=== PATIENT | male | born 1980 | race Caucasian/White ===

== ENCOUNTER 2016-10-14 16:40 | Inpatient (IN) | payer OTHER ==
[~2016-10-14] VITALS: Ht 175.3 cm; Wt 70.3 kg
[~2016-10-14 16:40] MED LIST: ABILIFY30 M1 PO; PROVENTIL HFA6.7 GM INH
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
--- NOTE | 2016-10-14 16:50 | NUR ---
PT TO [facility] FROM [employer] FOR SUISIDAL IDEATION AND NONCOMPLIANCE WITH MEDS PER PTR FATHER. ON ARRIVAL PT REFUSED TO TALK TO THIS RN. REQUESTING .
--- NOTE | 2016-10-14 16:51 | NUR ---
HX OF SCHIZO AFFECTIVE DISORDER.
--- NOTE | 2016-10-14 17:02 | NUR ---
PT WANDED BY SECURITY, CHANGED INTO BLUE SCRABS, 1 BELONGING BAG LOCKED INTO CLOSET, 1 VALUABLE BAG IN ER SAFE.
--- NOTE | 2016-10-14 18:21 | NUR ---
LABS SENT (BLUE,SST,LAV,[place])
[2016-10-14 18:35] LABS: ABSOLUTE BASOPHIL COUNT 0 /CUMM (0.0-0.2); ABSOLUTE EOSINOPHIL COUNT 0.2 /CUMM (0.0-0.7); ABSOLUTE GRANULOCYTE CT 6.5 /CUMM (1.4-6.5); ABSOLUTE LYMPH COUNT 1.8 /CUMM (1.2-3.4); ABSOLUTE MONOCYTE COUNT 0.6 /CUMM (0.10-0.60); BASOPHIL % 0.3 % (0.0-2.0); EOSINOPHIL % 2.5 % (0-5); HEMATOCRIT 42.8 % (42-52); MEAN CORPUSCULAR HGB 28.4 PG (27.0-31.0); MEAN CORPUSCULAR HGB CONC 32.6 G/DL (33.0-37.0); MEAN CORPUSCULAR VOLUME 86.9 FL (80.0-94.0); MEAN PLATELET VOLUME 10.2 FL (7.4-10.4); PLATELET COUNT 218 /CUMM (130-400); RBC DISTRIBUTION WIDTH 13.1 % (11.5-14.5); RED BLOOD CELL CT 4.92 /CUMM (4.70-6.10); WHITE BLOOD CELL COUNT 9.1 /CUMM (4.8-10.8)
--- NOTE | 2016-10-14 19:35 | ED PSYCH CRISIS CONSULTATION ---
See Addendum Crisis Consult Basic Assessment Date of Consult: 10/14/16 ED Provider: Patient's ED Provider: RAKESH GROVES DO Primary Care Physician: Patient's PCP: PATIENT HAS NO PRIMARY CARE DR PCP's Phone Number: Current Psychiatrist: He was seeing Dr. Veliz at [facility]. Chief Complaint: Psychiatric Related Complaint Patient's Quote: "Dr. Sebastian called my mom and I have no idea what he said to her." Present Illness: The patient is a 36 year old single, male presenting to the ED, via ambulance after his father called the police. The patient presents as guarded, confrontational and appears to have some paranoid thinking. The patient is very angry that he is in the ED and does not understand why he needs to be here. He does acknowledge a history of mental health treatment and states that he discontinued treatment with Dr. Veliz ([facility]), "months ago." He states that he was "not happy," however is not able to articulate why he was concerned with his treatment. He reports that his last inpatient admission was "here," and per records he was last at [facility], in February of 2016. He states that he has been medication compliant, despite his parents account that he has not been taking his medications. Per the records, he was last seen on 07/13/2016 and did not follow up within the recommended 6 weeks. DEON asked him where he was receiveing his medications, since he had not been seen and he stated that [facility]" and he "recieved another prescription in the mail." He was evasive when asking about his pharmacy to verify and stated that "he uses a few." He was guarded when disclosing any information and generally answered questions, with more questions. He denies any current symptoms and stated that he "is fine," and that his parents were not truthful in their account, of his recent behavior. He denies any current or history of AH / VH / SI / HI, however per records he does have a history of paranoia, delusions and hallucinations. He states that he is not sure why his parents are lying, however states that they are. He denies any current or history of substance abuse or treatment, however his toxicology screen was positive for Cannabis. DEON spoke to the patients parents Brandin ([phone]), for collateral information. Brian states that he has been very concerned for the patients safety. Brian notes that the patient has not been taking his medications since June, noting he was doing well while on his injectable medication. Brian notes that the patient has been living with them and that they have noticed that the patient is decompensating. Brian notes that the patient has been acting confrontational, saying "crazy things," and scaring people with his presentation. Brian notes that he called the police today(noting it was the 2nd time this week), as he believes that the patient needs a readmission at this point. Brian reports that the patients "girlfriend," has also been very concerned for his safety and hers. 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 Brian reports that patient has a history of "paranoid schizophrenia," noting he has heard voices in the past. Brian finds the patient to be very guarded and paranoid at this time. Brian and Sigrid are very concerned for the patients safety and would like him to be put back on his medications. They note that they would like to be involved in treatment planning if he is admitted. They also note that unless they are involved in family meeting, that he will not be allowed to return to live with them. A message was left for the patients "ex- girlfriend," Shelia ([phone]). Patient's Address: [address] [place] [address] Other Phone Number: Who Do You Live With? Mother (and father) Family/Informants Interviewed: A message was left for his "ex-girlfriend," Shelia ([phone]) SW spoke to his parents Sigrid and Brian ([phone]). Allergies - Coded Allergies: NO KNOWN ALLERGIES (08/11/12) Current Medications - Scheduled Medications Aripiprazole (Abilify) 30 MG TABLET 1 TAB PO DAILY MENTAL HEALTH #30 ( Reported) Entered as Reported by STEPHANE HOLLIDAY on 02/20/16 7340 Scheduled PRN Medications Albuterol Sulfate (Proventil Hfa) 6.7 GM HFA.AER.AD 2 PUF INH PRN ASTHMA #7 ( Reported) Entered as Reported by STEPHANE HOLLIDAY on 02/20/161808 Laboratory Results: Laboratory Tests 10/14/161920: Urine Opiates Screen < 100.00, Methadone Screen < 40, Barbiturate Screen < 60, Ur Phencyclidine Scrn < 6.00, Amphetamines Screen < 100, U Benzodiazepines Scrn < 85, Urine Cocaine Screen < 50, Urine Cannabis Screen 60.50 H 10/14/160: Anion Gap 11, Estimated GFR > 60, BUN/Creatinine Ratio 22.2, Glucose 173 H, Calcium 9.3, Total Bilirubin 0.9, AST 28, ALT 45, Alkaline Phosphatase 60, Total Protein 6.9, Albumin 4.5, Globulin 2.4, Albumin/Globulin Ratio 1.9, CBC w Diff NO MAN DIFF REQ, RBC 4.92, MCV 86.9, MCH 28.4, RDW 13.1, MPV 10.2, Gran % 71.0, Lymphocytes % 19.7 L, Monocytes % 6.5, Eosinophils % 2.5, Basophils % 0.3, Absolute Granulocytes 6.5, Absolute Lymphocytes 1.8, Absolute Monocytes 0.6, Absolute Eosinophils 0.2, Absolute Basophils 0, PUBS MCHC 32.6 L, Serum Alcohol < 10.0 Past History Past Medical History Neurological: NONE EENT: allergies Cardiovascular: NONE Respiratory: NONE Gastrointestinal: NONE Hepatic: NONE Renal: NONE Musculoskeletal: NONE Psychiatric: schizo affective disorder Endocrine: NONE Blood Disorders: NONE Cancer(s): NONE BUFFING WHEEL FORMER AUTOMATIC/Reproductive: NONE Past Surgical History Surgical History: non-contributory Psychosocial History Strengths/Capabilities: The patient does appear to have supportive parents. Physical Limitations (Interventions): None noted Psychiatric Treatment History Psych Treatment Psychiatric Treatment Yes Inpatient Treatment Yes Outpatient Treatment Yes Location of Treatment Tra and the patient was evasive re: other hopsitalizations- noting 15 Reason for Treatment Per records Schizoaffective Disorder Dates of Treatment Last IP February 2016 and has been connected o Tra OPS- last 07/13/16 Response to Treatment The patient states that "he was not happy with treatment," however was not able to articualte why. Diagnosis by History: schizoaffective disorder Substance Use/Abuse History Drug Use/Abuse Substances Used/Abused Yes Substance Used/Abused Marijuana First Use Patient denies use Last Used Patient denies use How much used/taken Patient denies use How often Patient denies use For how long Patient denies use Route of use Patient denies use Substance Abuse Treatment Substance Abuse Treatment Past Substance Abuse TX No Inpatient Treatment No Outpatient Treatment No Location of Treatment N/A Reason for Treatment N/A Dates of Treatment N/A Response to Treatment N/A Comments: The patient denies any current or history of drug or alcohol abuse, however his toxicology screen is positive for Cannabis. Current Mental Status Mental Status Orientation: Person, Place, Situation Affect: Angry, Inappropriate Speech: Evasive (Guarded), Hyper-verbal Neuro-vegetative: The patient denies all symptoms at this time. Appearance Appearance- Dress/Hygiene: The patient appears, neat, clean and well groomed. Behaviors Thought Process: Irrational Thought Content: Paranoid, Per records the patient does have a history of having AH, Delusions and paranoia. Memory: WNL Insight: Poor SI/HI Risk Assessment Past Suicidal Ideation/Attempts No (Pt. denies) Current Suicidal Ideation/Att No (Pt. denies) Past Homicidal Ideation/Att: No (Pt. denies) Current Homicidal Ideation/Attempts No (Pt. denies) Degree of Intent: None, Made Preparations (Pt. denies) Gravely Disabled: Lack of Insight, Poor Impulse Control, Poor Judgment Risk Factors: SA/MH hospitalized, substance abuse, poor impulse control, male Lethality Ratin PTSD Checklist PTSD Done? pt unable to participate ED Management Sitter: Yes Restraints: No DSM5/PS Stressors/Medical Prob Diagnosis' (DSM 5, Stressors, Medical): F25.0 Schizoaffective Disorder Bipolar Type- Per recent discharge from [facility]. F12.10 Cannabis use Disorder Medical: Unremarkable Stressors: family issues and relationship issues. Current GAF: 29 Comments: N/A Departure Disposition Psych Medical Clearance Date: 10/14/16 Medically Cleared at: 1920 Time Started: 1929 Time Ended: 2029 Psychiatrist Consulted: Dr. Montiel Date Disposition Established: 10/14/16 Time Disposition Established: 2029 Plan for Disposition - Modality: Hold over for reassessment in the AM. Contact: N/A Telephone: N/A Rationale for Disposition: The patient presents to the ED, after his father called the police, with concerns for his mental health. The patients parents are concerned for his safety and believe that he requires an inpatient admission. The patient presents as guarded, confrontational and paranoid, however denies all symptoms and stressors. A call was placed to his "ex-girlfiend," for additional collateral information and SW will await a call back. Case discussed with Dr. Montiel who will hold the patient over for reassessment in the AM. Additional Instructions: N/A Referrals PATIENT HAS NO PRIMARY CARE DR (PCP/Family)
--- NOTE | 2016-10-14 22:05 | NUR ---
PT RESTING IN BED, OFFERING NO COMPLAINTS OR NEEDS. FOOT BOX PROVIDED. PT REFUSED VS. SITTER AT DOORWAY.
--- NOTE | 2016-10-14 22:45 | NUR ---
PT USING BEDPAN, UNRESTRAINED TO TURN FOR CLEANING, PT HAD LARGE BM..... PT ASKS WHY HE NEEDS TO BE RESTRAINED, BUT CANNOT CANTRACT THAT HE WILL NOT TRY TO LEAVE, CONTINUES TO ENDORSE FLEEING.
--- NOTE | 2016-10-15 00:45 | NUR ---
INTRODUCED SELF TO PT, NO CO BUT REQUESTS WATER, SITTER IN PLACE. ENCOURAGED TO KEEP DOOR OPEN.
--- NOTE | 2016-10-15 04:50 | NUR ---
PT HAS SLEPT MOST OF SHIFT, AWAKENS EASILY UPON ENTERING ROOM OFFERED FLUIDS, STABLE. SITTER MAINTAINED
--- NOTE | 2016-10-15 05:12 | NUR ---
PT VERY POLITELY DECLINED VS THIS AM, BUT WAS AGREEABLE TO MANUAL PULSE ONLY....
--- NOTE | 2016-10-15 07:25 | NUR ---
PT AWAKE,ALERT. REFUSED VITALS STATES "WHY ITS BEEN DONE LIKE 5 TIMES". DID ALLOW THIS MOVING PICTURE PRODUCER TO TAKE PULSE. ASKED WHY HE IS HERE. RELAYED INFO FROM [facility] BY AMBULANC.
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
--- NOTE | 2016-10-15 10:01 | NUR ---
PT APPEARS TO BE SLEEPING AT THIS TIME WITH EQUAL CHEST RISE AND FALL NOTED. SITTER PRESENT. AWAITING FURTHER DISPO.
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
--- NOTE | 2016-10-15 12:06 | NUR ---
PT STANDING IN [place] TALKING TO SITTERS. REFUSING VITALS AT THIS TIME "5 TIMES A DAY IS RIDICULOUS." PT ASKED TO AUDIT CONSULTANT HIS DOORWAY TO TALK TO SITTERS AND WAS COOPERATIVE AT THIS TIME.
--- NOTE | 2016-10-15 13:36 | NUR ---
PT ALLOWED VITALS AND EKG TO BE DONE BY TECH
--- NOTE | 2016-10-15 16:59 | NUR ---
REPORT TO STAS OLSON
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
--- NOTE | 2016-10-15 17:14 | NUR ---
TRANSPORT BOOKED, SECURITY NOTIFIED OF SAME. PT HAS BELONGINGS BAG X 1 AND VALUABLES BAG X 1 TRANSPORTING WITH HIM.
[2016-10-15 17:51] VITALS: BP 120/73
--- NOTE | 2016-10-15 18:22 | NUR ---
PT ARRIVED TO THE UNIT OVERALL COOPERATIVE HOWEVER DID HAVE AN INTENSE, GUARDED (PARANOID?), CALMLY DEFIANT/CHALLENGING EDGE. PT DENIES DRINKING AND ONLY DRUG USE WAS MJ COOKIES 1-2 WEEKS AGO. WHEN ASKED DIRECTLY DENIES SI/HI/HALLUCINATIONS AND AT THIS TIME NO OVERT S/SX OF +AH. PT VERBALIZED DISCONTENT WITH ADMISSION (IS PEC-ED) AND WILL DISCUSS THIS WITH TREATMENT TEAM ON MONDAY. NO ISSUES OR COMPLAINTS REPORTED OR OBSERVED, REPORTS + MOOD, APPETITE AND SLEEP, DENIES ALLERGIES, REPORTS NOT BEING ON ANY MEDICATIONS FOR A SIGNIFICANT TIME FRAME EXCEPT HIS INHALER FOR PRN SEASONAL ALLERGIES. REPORTS FEELING SAFE AND COMFORTABLE HERE AND WOULD INFORM STAFF IF THAT CHANGED. DR. BROWNING NOTIFIED FOR H&P @ 2783.
--- NOTE | 2016-10-15 20:02 | NUR ---
PT ARRIVED TO [facility] AT 1728. HAS BEEN QUIET AND HAS NOT DISPLAYED ANY EMOTIONAL DISTRESS. HE HAS TALKED WITH STAFF AND BEEN COMPLIANT. PT DENIES ANY THOUGHTS OF SI AT THIS TIME.
--- NOTE | 2016-10-15 20:11 | Admission Certification ---
Admission Certification Certification Statement - As attending physician, I certify that at the time of - admission, based on clinical presentation, severity of - symptoms, need for further diagnostic testing and - therapeutic interventions, and risk of adverse outcomes - without in-hospital treatment, in my clinical assessment, - this patient requires an acute hospital stay for a minimum - of two nights or longer. I have also considered psychsocial - factors such as support system, advanced age, financial - issues, cognitive issues, and failed out-patient treatments, - past re-admission history, safety of patient, and lack of - compliance as applicable. Specific rationale supporting this admission is: Schizoaffective disorder.
--- NOTE | 2016-10-15 20:11 | History & Physical ---
General Information and HPI MD Statement: I have seen and personally examined SEVEN CLEMONS and documented this H&P. The patient is a 36 year old M who presented with a patient stated chief complaint of [suicidal ideation]. Source of Information: patient Exam Limitations: no limitations History of Present Illness: 36 yo M with h/o asthma, allergies, schizoaffective disorder is admitted to Inpatient Psychiatry for suicidal ideation and paranoid delusions secondary to noncompliance with medications. Please refer to Psych H and P for details. He feels well and has no complaints. Allergies/Medications Allergies: Coded Allergies: NO KNOWN ALLERGIES (08/11/12) Home Med list Albuterol Sulfate (Proventil Hfa) 6.7 GM HFA.AER.AD 2 PUF INH PRN ASTHMA ( Reported) Compliance With Home Meds: POOR Past History Travel History Traveled to [place] past 21 day No Medical History Neurological: NONE EENT: allergies Cardiovascular: NONE Respiratory: childhood asthma (diagnosed age 9 yrs) Gastrointestinal: NONE Hepatic: NONE Renal: NONE Musculoskeletal: NONE Psychiatric: schizo affective disorder Endocrine: NONE Blood Disorders: NONE Cancer(s): NONE CIGAR MAKER/Reproductive: NONE Other Medical Hx: Acne History of MRSA: No History of VRE: No History of CDIFF: No Surgical History Surgical History: appendectomy, Closed reduction of right knee dislocation Past Family/Social History Family History Relations & Conditions if any FATHER (HTN, DM.). MOTHER (HTN.). SISTER (HTN.). Maternal grandfather (Lung cancer). Uncle (CAD s/p stent.). Relation not specified for: *No pertinent family history Psychosocial History Where do you live? Home Who Do You Live With? self Services at Home: None Primary Language: Danish Smoking Status: Current Everyday Smoker ETOH Use: occasional use Illicit Drug Use: marijuana Functional Ability ADLs Independent: dressing, eating, toileting, bathing. Ambulation: independent Review of Systems Review of Systems Constitutional: Denies: chills, fever, malaise, weakness. EENTM: Reports: no symptoms. Cardiovascular: Denies: chest pain, orthopena, palpitations, syncope. Respiratory: Denies: cough, short of breath, sputum production. GI: Denies: abdominal pain, diarrhea, nausea, vomiting. Genitourinary: Reports: no symptoms. Musculoskeletal: Reports: neck pain. Denies: back pain, joint pain, joint swelling. Neurological/Psychological: Reports: no symptoms. All Other Systems: Reviewed and Negative Exam & Diagnostic Data Last 24 Hrs of Vital Signs/I&O Vital Signs Date Time Temp Pulse Resp B/P B/P Pulse O2 O2 Flow FiO2 Mean Ox Delivery Rate 10/16 1957 98.4 73 139/75 10/16 1548 105 133/83 10/16 1155 70 133/71 Intake & Output 10/16 1600 10/16 0800 10/16 0000 Intake Total Output Total Balance Patient 155 lb Weight Physical Exam General Appearance Alert, Oriented X3, Cooperative, No Acute Distress Skin No Breakdown, No Significant Lesion HEENT Atraumatic, EOMI, Mucous Membr. moist/pink Neck Supple Cardiovascular Regular Rate, Normal S1, Normal S2 Lungs Clear to Auscultation, Normal Air Movement Abdomen Normal Bowel Sounds, Soft, No Tenderness Neurological Exam Findings: Normal Gait, Normal Speech, Strength at 5/5 X4 Ext, Cranial Nerves 3-12 NL Cranial Nerves II through XII: Grossly intact Extremities No Edema, Normal Pulses, No Tenderness/Swelling Vascular Normal Pulses, Pulses Symmetrical Last 24 Hrs of Labs/Rusty: Laboratory Tests 10/14 1820 Chemistry Sodium (137 - 145 mmol/L) 136 L Potassium (3.5 - 5.1 mmol/L) 4.0 Chloride (98 - 107 mmol/L) 99 Carbon Dioxide (22 - 30 mmol/L) 26 Anion Gap (5 - 16) 11 BUN (9 - 20 mg/dL) 20 Creatinine (0.7 - 1.2 mg/dL) 0.9 Estimated GFR (>60 ml/min) > 60 BUN/Creatinine Ratio (7 - 25 %) 22.2 Glucose (65 - 99 mg/dL) 173 H Calcium (8.4 - 10.2 mg/dL) 9.3 Total Bilirubin (0.2 - 1.3 mg/dL) 0.9 AST (17 - 59 U/L) 28 ALT (21 - 72 U/L) 45 Alkaline Phosphatase (< 127 U/L) 60 Total Protein (6.3 - 8.2 g/dL) 6.9 Albumin (3.5 - 5.0 g/dL) 4.5 Globulin (1.9 - 4.2 gm/dL) 2.4 Albumin/Globulin Ratio (1.1 - 2.2 %) 1.9 Hematology CBC w Diff NO MAN DIFF REQ WBC (4.8 - 10.8 /CUMM) 9.1 RBC (4.70 - 6.10 /CUMM) 4.92 Hgb (14.0 - 18.0 G/DL) 13.9 L Hct (42 - 52 %) 42.8 MCV (80.0 - 94.0 FL) 86.9 MCH (27.0 - 31.0 PG) 28.4 RDW (11.5 - 14.5 %) 13.1 Plt Count (130 - 400 /CUMM) 218 MPV (7.4 - 10.4 FL) 10.2 Gran % (42.2 - 75.2 %) 71.0 Lymphocytes % (20.5 - 51.1 %) 19.7 L Monocytes % (1.7 - 9.3 %) 6.5 Eosinophils % (0 - 5 %) 2.5 Basophils % (0.0 - 2.0 %) 0.3 Absolute Granulocytes (1.4 - 6.5 /CUMM) 6.5 Absolute Lymphocytes (1.2 - 3.4 /CUMM) 1.8 Absolute Monocytes (0.10 - 0.60 /CUMM) 0.6 Absolute Eosinophils (0.0 - 0.7 /CUMM) 0.2 Absolute Basophils (0.0 - 0.2 /CUMM) 0 PUBS MCHC (33.0 - 37.0 G/DL) 32.6 L Toxicology Urine Opiates Screen (>2000 NG/ML) < 100.00 Methadone Screen (>300 NG/ML) < 40 Barbiturate Screen (>200 NG/ML) < 60 Ur Phencyclidine Scrn (>25 NG/ML) < 6.00 Amphetamines Screen (>1000 NG/ML) < 100 U Benzodiazepines Scrn (>200 NG/ML) < 85 Urine Cocaine Screen (>300 NG/ML) < 50 Urine Cannabis Screen (>50 NG/ML) 60.50 H Serum Alcohol (<10 MG/DL) < 10.0 Diagnostic Data EKG Results -- CXR Results -- Assessment/Plan Assessment: 36 yo M admitted for schizoaffective disorder and suicidal ideation. 1. Management per Psych team. 2. Albuterol inhaler as needed for asthma. 3. Smoking cessation counseling, nicotine patch. 4. Patient to resume acne medication and allergy pills when he is discharged back home. DVT prophylaxis - low risk, early ambulation. As Ranked By This Provider Problem List: 1. Schizoaffective disorder 2. Cigarette smoker 3. Agitation Miscellaneous Miscellaneous Documentation Attending Case Discussed With: Jigar Diaz MD Primary Care Physician: PATIENT HAS NO PRIMARY CARE DR Patient sees these Specialists -- Level of Patient Care: PAULINA Aldrich Attending MD Review Statement Attending Statement Attending MD Statement: examined this patient, discuss w/resident/PA/MECHANICAL COMMISSIONING ENGINEER
[2016-10-15 20:14] VITALS: BP 136/71
--- NOTE | 2016-10-15 23:00 | NUR ---
2144 PT. REFUSED PM MEDICATIONS HALDOL, ATIVAN AND COGENTIN REPORTED TO CHARGE NURSE "I TALKED TO DR. GOLD TODAY AND HE SAID IF I FEEL GOOD DONOT NEED THEM" STATED BY PT. DR. GOLD AWARE.
--- NOTE | 2016-10-16 10:43 | ED PSYCH CRISIS CONSULTATION ---
Crisis Consult Basic Assessment Chief Complaint: Psychiatric Related Complaint Present Illness: The patient is a 36 year old single, male presenting to the ED, via ambulance after his father called the police. The patient presents as guarded, confrontational and appears to have some paranoid thinking. The patient is very angry that he is in the ED and does not understand why he needs to be here. He does acknowledge a history of mental health treatment and states that he discontinued treatment with Dr. Veliz ([facility]), "months ago." He states that he was "not happy," however is not able to articulate why he was concerned with his treatment. He reports that his last inpatient admission was "here," and per records he was last at [facility], in February of 2016. He states that he has been medication compliant, despite his parents account that he has not been taking his medications. Per the records, he was last seen on 07/13/2016 and did not follow up within the recommended 6 weeks. SW asked him where he was receiveing his medications, since he had not been seen and he stated that [facility]" and he "recieved another prescription in the mail." He was evasive when asking about his pharmacy to verify and stated that "he uses a few." He was guarded when disclosing any information and generally answered questions, with more questions. He denies any current symptoms and stated that he "is fine," and that his parents were not truthful in their account, of his recent behavior. He denies any current or history of AH / VH / SI / HI, however per records he does have a history of paranoia, delusions and hallucinations. He states that he is not sure why his parents are lying, however states that they are. He denies any current or history of substance abuse or treatment, however his toxicology screen was positive for Cannabis. DEON spoke to the patients parents Brian and Sigrid ([phone]), for collateral information. Brian states that he has been very concerned for the patients safety. Brian notes that the patient has not been taking his medications since June, noting he was doing well while on his injectable medication. Brian notes that the patient has been living with them and that they have noticed that the patient is decompensating. Brian notes that the patient has been acting confrontational, saying "crazy things," and scaring people with his presentation. Brian notes that he called the police today(noting it was the 2nd time this week), as he believes that the patient needs a readmission at this point. Brian reports that the patients "girlfriend," has also been very concerned for his safety and hers. 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 Brian reports that patient has a history of "paranoid schizophrenia," noting he has heard voices in the past. Brian finds the patient to be very guarded and paranoid at this time. Brian and Sigrid are very concerned for the patients safety and would like him to be put back on his medications. They note that they would like to be involved in treatment planning if he is admitted. They also note that unless they are involved in family meeting, that he will not be allowed to return to live with them. Who Do You Live With? Patient/Self (With a friend in [place]) Allergies - Coded Allergies: NO KNOWN ALLERGIES (08/11/12) Current Medications - Scheduled PRN Medications Albuterol Sulfate (Proventil Hfa) 6.7 GM HFA.AER.AD 2 PUF INH PRN ASTHMA #7 ( Reported) Entered as Reported by STEPHANE HOLLIDAY on 02/20/16 1809 Discontinued Medications Aripiprazole (Abilify) 30 MG TABLET 1 TAB PO DAILY MENTAL HEALTH #30 ( Reported) Discontinued reason: Changed to different med Past History Past Medical History Neurological: NONE EENT: allergies Cardiovascular: NONE Respiratory: NONE Gastrointestinal: NONE Hepatic: NONE Renal: NONE Musculoskeletal: NONE Psychiatric: schizo affective disorder Endocrine: NONE Blood Disorders: NONE Cancer(s): NONE 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 Physical Limitations (Interventions): None noted Psychiatric Treatment History Psych Treatment Psychiatric Treatment Yes Inpatient Treatment Yes Outpatient Treatment Yes Location of Treatment [facility] and the patient was evasive re: other hopsitalizations- noting 15 Reason for Treatment Per records Schizoaffective Disorder Dates of Treatment Last IP February 2016 and has been connected o [facility]- last 07/13/16 Response to Treatment The patient states that "he was not happy with treatment," however was not able to articualte why. Diagnosis by History: schizoaffective disorder Substance Use/Abuse History Drug Use/Abuse Substances Used/Abused Yes Substance Used/Abused Marijuana First Use Patient denies use Last Used Patient denies use How much used/taken Patient denies use How often Patient denies use For how long Patient denies use Route of use Patient denies use Substance Abuse Treatment Substance Abuse Treatment Past Substance Abuse [place] No Inpatient Treatment No Outpatient Treatment No Location of Treatment N/A Reason for Treatment N/A Dates of Treatment N/A Response to Treatment N/A DSM5/PS Stressors/Medical Prob Diagnosis' (DSM 5, Stressors, Medical): F25.0 Schizoaffective Disorder Bipolar Type- Per recent discharge from [facility]. F12.10 Cannabis use Disorder Medical: Unremarkable Stressors: family issues and relationship issues. Current GAF: 29 Comments: N/A Departure Disposition Referrals PATIENT HAS NO PRIMARY CARE DR (PCP/Family)
[2016-10-16 11:55] VITALS: BP 133/71
--- NOTE | 2016-10-16 12:10 | SOCIAL WORKER SOCIAL HX PSYCH ---
Social History Basic Assessment Insurance Authorization: Insurance #1: Insurance name: [facility] Phone number: Policy number: [id number] Group number: [id number] Authorization number: Curr Source of Income/Entitlements: [facility] Primary Care Physician: Patient's PCP: PATIENT HAS NO PRIMARY CARE DR PCP's Phone Number: Present Problem: The patient is a 36 year old single, male who presented to the ED, via ambulance after his father called the police. The patient presents as guarded, confrontational and appears to have some paranoid thinking. He does acknowledge a history of mental health treatment and states that he discontinued treatment with Dr. Veliz ([facility]), "months ago." He states that he was "not happy ," however is not able to articulate why he was concerned with his treatment. He reports that his last inpatient admission was "here," and per records he was last at [facility], in February of 2016. He states that he has been medication compliant, despite his parents account that he has not been taking his medications. Per the records, he was last seen on 07/13/2016 and did not follow up within the recommended 6 weeks. SW asked him where he was receiving his medications, since he had not been seen and he stated that [facility]" and he "received another prescription in the mail." He was evasive when asking about his pharmacy to verify and stated that "he uses a few." He was guarded when disclosing any information and generally answered questions, with more questions. He denies any current symptoms and stated that he "is fine," and that his parents were not truthful in their account, of his recent behavior. He denies any current or history of AH / VH / SI / HI, however per records he does have a history of paranoia, delusions and hallucinations. The patient continues to ask why he needs to be admitted to the hospital and continues to refuse medications. Per his parents and his "ex-girlfriend," he is not at baseline, he is confrontational, paranoid, sexually inappropriate, grandiose, unsafe and treatment and medication non-compliant. Primary Language? Swedish Language(s) Spoken At Home: Swedish Living Situation Other Living Arrangement: friend's home Residential Care/Treatment Fac N/A Feel Safe Where You Are Living Yes Feel Safe in Relationships? No Comments: He states that he broke up with his terminal clerk girlfriend, Shelia and believes that she is harassing him and that she has "no right," to be calling the hospital with concerns. Allergies - Coded Allergies: NO KNOWN ALLERGIES (08/11/12) Current Medications - Scheduled PRN Medications Albuterol Sulfate (Proventil Hfa) 6.7 GM HFA.AER.AD 2 PUF INH PRN ASTHMA #7 ( Reported) Entered as Reported by STEPHANE HOLLIDAY on 02/20/16 1809 Discontinued Medications Aripiprazole (Abilify) 30 MG TABLET 1 TAB PO DAILY MENTAL HEALTH #30 ( Reported) Discontinued reason: Changed to different med Consequences of Psych Med Use: N/A Comments: N/A Past History Past Medical History Neurological: NONE EENT: allergies Cardiovascular: NONE Respiratory: NONE Gastrointestinal: NONE Hepatic: NONE Renal: NONE Musculoskeletal: NONE Psychiatric: schizo affective disorder Endocrine: NONE Blood Disorders: NONE Cancer(s): NONE 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 No Mother's Age (Current/): 65 Relationship w/Mother: He refers to her as Sigrid and states that he no longer has any relationship with his parents. Father's Age (Current/): 0 (Unclear) Relationship w/Father: He refers to him as Bill and states that he no longer has any relationship with his parents. Any Sibling(s)? Yes Sibling's Gender(s)/Age(s): female Sibling 1: Relationship w/Sibling(s): He states that he does not have a relationship with his sister, when asked why, he says, " were just not close." Relationship w/Friends: He states that he does have friend and that those relationship are "very good." Other Comments: N/A Abuse/Trauma History Trauma History/Current Trauma: Denies Legal History Legal Guardian/Address/Phone: Self Current Legal Status: none Pending Court Dates: N/A Have you ever been arrested Yes Number of Arrests: 2 Hx of Juvenile Legal Charges? No Hx of Adult Legal Charges? Yes If Yes: Unknown will not disclose List/Date Most Recent Lgl Chgs: The patient states "that was 13 years ago in [place]." Chgs/Dts/Incarcerations/Sentnc Unknown Civil Proceedings: N/A Domestic Relations Court: N/A Child Protective Serv Involvmnt N/A Staff Sonographer N/A Psychosocial History Primary Support System: " I support myself." Strengths/Capabilities: The patient does appear to have supportive parents and is on social security disability. Weaknesses: The patient is very resistant to any treatment interventions. Physical Limitations (Interventions): None noted Last Physical: "4-6 months ago." History of Seizures? No History of Blackouts? No ADL Limitations: None noted [place]/Social/Peer Relations The patient reports that he does have some friend and that those relationships are "very good." Meaningful Activities: Reading books, writting, going to the beach or going to the [place]. Childhood Zoroastrian: no hinduism stated Current Druze Affiliation: Agnostic, no hinduism stated Is Spirituality Important to You? The patient states that he is "Agnostic." Cultural/Ethnic Issues: None noted Are There Developmental Issues? No Milestones Achieved: WNL Psychiatric Treatment History Psych Treatment Inpatient Treatment Yes Outpatient Treatment Yes Location of Treatment [facility] and the patient was evasive re: other hopsitalizations- noting 15 Reason for Treatment Per records Schizoaffective Disorder Dates of Treatment Last February 2016 and has been connected o [facility]- last 07/13/16 Response to Treatment The patient states that "he was not happy with treatment," however was not able to articualte why. Precipitating Factors: Medication non-compliance Current Squash Centre Manager: The patient does state that he is currently in treatment, however refuses to disclose who his provider is. Treatment of Prior Episodes: The patient states that he has been in multiple treament episodes, however would not disclose them. Diagnosis: schizoaffective disorder Psychodynamic Issues: Chronic Mental Health issues Risk Factors: SA/MH hospitalized, substance abuse, poor impulse control, male Substance Use/Abuse History Drug Use/Abuse Substance Used/Abused Marijuana First Use Patient denies use Last Used Patient denies use How much used/taken Patient denies use How often Patient denies use For how long Patient denies use Route of use Patient denies use Have Had Periods of Sobriety? Yes Explain: The patient notes that he only eats cookies with cannabis in them, "occasionally." Relapse History? No Explain: N/A Have You Ever Attended AA? No Do You Attend AA Currently? No Do You Have a Sponsor? No Other Community Resources Used: None noted Symptoms of Use: N/A Substance Abuse Treatment Substance Abuse Treatment Inpatient Treatment No Outpatient Treatment No Location of Treatment N/A Reason for Treatment N/A Dates of Treatment N/A Response to Treatment N/A Comments: N/A Sexual History Sexual Concerns: * Per ex-girlfriend he is sexually inappropriate in public. Education History Highest Level of Education: bachelor's degree Highest Grade Completed: College Bachelors in Physics and [place] Vocational Year Completed: N/A Number of College Years: 4 College Degree/Major: Physics and [place] BS Other Degree(s): Pt stated he got into [employer] for Masters but did not go Preferred Learning Style: Unknown HX of Learning Difficulties: None reported Barriers to Learning: None reported Special Communication Needs: None reported Employment History Employment Disability Not in Labor Force: Disabled Vocation/Occupational Hx: N/A No. of Jobs in Last 5 Years: 0 Attendance: N/A Comments: N/A History Have You Been in The ? No If Yes, Explain: N/A Type of Discharge: N/A Date of Discharge: N/A Current Mental Status Mental Status Orientation: Person, Place, Situation Affect: Angry, Inappropriate Speech: Evasive (Guarded), Hyper-verbal Neuro-vegetative: The patient denies all symptoms at this time. Appearance Appearance- Dress/Hygiene: The patient was lying in bed, with the blankets pulled up to his head. Behaviors Thought Process: Irrational Thought Content: Paranoid, Per records the patient does have a history of having AH, Delusions and paranoia. Memory: WNL Insight: Poor SI/HI Risk Assessment Past Suicidal Ideation/Attempts No (Pt. denies) Current Suicidal Ideation/Att No (Pt. denies) Past Homicidal Ideation/Att: No (Pt. denies) Current Homicidal Ideation/Attempts No (Pt. denies) Degree of Intent: None, Made Preparations (Pt. denies), Per collateral note he has a laceration to his hand and his "ex-girlfriend." believed that it was self inflicted. Gravely Disabled: Lack of Insight, Poor Impulse Control, Poor Judgment Risk Factors: Harm to animals, SA/MH Hospitalization(s), Male, Per girlfriend, the patient killed her goldfish, "because it reminded him of President Lorenza." Lethality Ratin - Conclusion and Recommendations for treatment - and discharge planning Summary: The patient presents to the ED, after his father called the police, with concerns for his mental health. The patients parents are concerned for his safety and believe that he requires an inpatient admission. The patient presents as guarded, confrontational and paranoid, however denies all symptoms and stressors. He is refusing all medications and is not participating in treatment.
--- NOTE | 2016-10-16 13:23 | NUR ---
Martin was visible on the unit after getting up late am. He was irritable and kept to himself, except when repeatedly asking for the MD to speak to his female friend. Martin refused his am medications, but did take his noon time Abilify. He repeatedly stated he was not prescribed anything for anxiety. He denies SH/HI/SI. He spent a great deal of time watching the fish.
--- NOTE | 2016-10-16 13:55 | CP SOUTH PROGRESS NOTE PSYCH ---
Psych (Inpt) Progress Note Progress Note Include the following elements, when applicable: Involvement in the active treatment of the patient with behavioral observations of the patient and the patient's response to the treatment. Review of the ongoing treatment process in the context of the treatment plan. Indication of how multi-disciplinary staff members are carrying out the treatment plan. Plans for future interventions and recommendations for revision of the treatment plan. Liaison with other physicians/providers. Progress Note: Chart reviewed and progress d/w nursing staff. Interviewed patient this morning. Dominik remains guarded, paranoid, and highly perseverative. He is uncooperative with my attempts to understand his current outpatient medication regimen or treaters. "As I said before, your hospital has violated my privacy rights so I do not believe I need to share that information with you". We discussed his previous treatment with haldol and then abilify. He was agreeable to resuming abilify. "I know that you have to prescribe me something to get the insurance to pay for it". He denies SI/HI and AVH. Vitals wnl. No new labs. MSE: thin, adequately groomed CM sitting on hospital bed. Intense eye contact, oddly related, speech was intense, accusatory tone, mood was "fine. I don't know why I'm here". Affect was irritable, mildly expansive. TP was perseverative. Content mainly with distrust of hospital and his previous outpatient providers at , cognition grossly intact. I/J limited. A/P: Dominik continues to present with irritable manic sx's with limited insight as to his parents' concern regarding safety in the community. Review of the chart demonstrates he was most recently treated with abilify in Jun [address] Veliz. Dominik says he is willing to resume this medicine, so this was restarted at 5 mg daily. He did not cooperate with my attempts to determine whether he has been compliant with this med as an outpatient. Inpatient hospitalization remains warranted given patient's psychiatric sx's and reported erratic behavior in the community as well as inability to identify an outpatient plan commensurate with his psychiatric diagnosis. Will order A1c and lipid panel given his antipsychotic treatment.
[2016-10-16 15:48] VITALS: BP 133/83
[2016-10-16 19:58] VITALS: BP 139/75
--- NOTE | 2016-10-16 20:32 | NUR ---
PT IS ISOLATIVE AND HAS BEEN IN HIS ROOM FOR THE MAJORITY OF THE SHIFT. MINIMAL INTERACTIONS WITH PEERS AND STAFF. HE HAS BEEN COMPLIANT WITH RULES AROUND THE UNIT AND HAS NOT REPORTED ANY THOUGHTS OF SI AT THIS TIME.
[2016-10-17 07:46] VITALS: BP 123/68
--- NOTE | 2016-10-17 11:32 | CP SOUTH PROGRESS NOTE PSYCH ---
Psych (Inpt) Progress Note Progress Note Kiki record reviewed. BP 123/68 mmHg, Pulse 64/min, Temp. 98.8 Sleep log indicated patient slept well. No new labs I interviewed patient this morning. Reason for admission: Patient MADHAV after father called police out of concern that patient was threatening and acting erratically and bizarrely. Diagnosis of Record: schizoaffective disorder, bipolar type, current episode manic cannabis use disorder Mental Status: Dominik was adversarial during interview, guarded, did not want to share who his new psychiatrist is, he claims he saw a new provider since he fired me, did not want to share what medications were recommended, He was uncooperative, he claimed that he was prescribed Abilify by Dr. Montiel because insurance insurance would not pay for his stay if he is not prescribed something He denies SI/HI and AVH. thin, adequately groomed, adversarial tone of speech, mood is "fine. I don't know why I'm here". Affect was slightly irritable, cognition grossly intact Plan: He did not want any medication changes, he claims that Dr. Montiel was planning to titrate him off Abilify (dr. Vila noted do not indicate that was the plan) Follow up with regular treatment team tomorrow
[2016-10-17 12:19] VITALS: BP 122/74
--- NOTE | 2016-10-17 13:33 | NUR ---
PT IS COMPLIANT AND COOPERATIVE. MOOD IS STABLE WITH A CONSTRICTED AFFECT- PT HAS AN IRRITAVBLE EDGE. PT DENIES SI/HI AT THIS TIME, NO COMPLAINTS OFFERED. PT HAS BEEN PRESENT IN COMMUNITY, HAS MINIMAL INTERACTION WITH OTHERS. THOUGHT CONTENT APPEARS CLEAR AT THIS TIME. PT ATTENDED ONE GROUP TODAY. VITALS ARE STABLE, APPETITE IS GOOD.
[2016-10-17 15:59] VITALS: BP 125/68
[2016-10-17 19:43] VITALS: BP 136/79
--- NOTE | 2016-10-18 06:00 | NUR ---
PT DID NOT SLEEP WELL. PT VIGILANT ON EVENINGS, SITTING NEAR NURSES'S STATION.
[2016-10-18 07:41] VITALS: BP 128/74
--- NOTE | 2016-10-18 10:44 | SOCIAL WORKER TX PLAN PSYCH ---
Treatment Plan - Please Document: - Evidence that there is ongoing collaboration between - the patient and the interdisciplinary team, - including the patient's active participation and - responsibility for engaging in the treatment regimen, - and that the treatment plan is individualized and - relevant to the patient's conditions. - Treatment plan should reflect documentation indicating - that all active therapeutic efforts are included. Strengths/Capabilities: The patient does appear to have supportive parents and is on social security disability. Physical Limitations (Interventions): None noted DSM5/PS Stressors/Medical Prob Diagnosis' (DSM 5, Stressors, Medical): F25.0 Schizoaffective Disorder Bipolar Type- Per recent discharge from [facility]. F12.10 Cannabis use Disorder Medical: Unremarkable Stressors: family issues and relationship issues. Current GAF: 29 Treatment Team - Responsibilities of members of the treatment team include: - Medication Management- MD or RN MEDICARE - Medication Administration and Monitoring- Nurse - Group Therapy- Occupational Therapist - 1:1 Therapy,Disch Planning,family involvement-Stamp Clerk
--- NOTE | 2016-10-18 10:48 | SOCIAL WORKER TX PLAN PSYCH ---
Treatment Plan - Please Document: - Evidence that there is ongoing collaboration between - the patient and the interdisciplinary team, - including the patient's active participation and - responsibility for engaging in the treatment regimen, - and that the treatment plan is individualized and - relevant to the patient's conditions. - Treatment plan should reflect documentation indicating - that all active therapeutic efforts are included. Strengths/Capabilities: The patient does appear to have supportive parents and is on social security disability. Physical Limitations (Interventions): None noted Problem/Goals #1 Problem #1: psychosis Goal (Short Term): To eliminate symptoms of psychosis To maintain a stable mood Goal (Chicken Handler): To maintain stability and comply with step down level of care, and med management To utilize coping skills and identify triggers to alleviate and recognize psychotic episodes Interventions: Individual, group and family treatment as needed symptom management group stress reduction and recreation groups on the unit Modalities: Encourage groups, education on schizophrenia, provide additonal support on the unit and an appropirtae level of care upon discharge DSM5/PS Stressors/Medical Prob Diagnosis' (DSM 5, Stressors, Medical): F25.0 Schizoaffective Disorder Bipolar Type- Per recent discharge from [facility]. F12.10 Cannabis use Disorder Medical: Unremarkable Stressors: family issues and relationship issues. Current GAF: 29 Treatment Team - Responsibilities of members of the treatment team include: - Medication Management- MD or MEDICAL ANTHROPOLOGY DIRECTOR - Medication Administration and Monitoring- Nurse - Group Therapy- Occupational Therapist - 1:1 Therapy,Disch Planning,family involvement-Headrig Sawyer
--- NOTE | 2016-10-18 10:48 | SOCIAL WORKER PROG NOTE PSYCH ---
Social Work Progress Note Progress Note Pt was laying in bed, not clear what he did to get admitted, states he will "do his time", but finds the "group and milieu not productive",pt states he is unsure why parents called 911, and he will not sign releases to speak with them or Shelia, who called Dr. Trevino to voice her concerns reporting he was off his medications. Pt is guraded and keeping to himself, he did clarify who his current rn imcu is, nor who he will live with upon discharge. It is unlikely he is at baseline, and may have been off medications since he stopped seeing Dr. Jaz badillo
--- NOTE | 2016-10-18 12:04 | SOCIAL WORKER PROG NOTE PSYCH ---
Social Work Progress Note Progress Note RYDER CLEMONS [id number] 1980 RYDER CLEMONS [id number] Pended Authorization # Client Authorization # Type of Request [id number] CONCURRENT Date of Admission/ Start of Services Requested From Submission Date 10/15/2016 10/18/2016 10/18/2016
[2016-10-18 12:47] VITALS: BP 139/88
--- NOTE | 2016-10-18 13:53 | NUR ---
PT WAS ISOLATIVE TODAY, AND DID NOT COME OUT OF HIS ROOM THAT OFTEN. PT ATTENDED NO GROUPS TODAY, AND HAS MINIMAL INTERACTIONS WITH PEERS. PT HAS BEEN COMPLIANT ABOUT GETTING HIS VITALS DONE, AND COMES OUT TO EAT WITH THE OTHERS. PT HAS BEEN COOPERATIVE WITH STAFF DIRECTION, AND DENIES THOUGHTS TO HURT HIMSELF WHEN ASKED.
--- NOTE | 2016-10-18 14:42 | CP SOUTH PROGRESS NOTE PSYCH ---
Psych (Inpt) Progress Note Progress Note Include the following elements, when applicable: Involvement in the active treatment of the patient with behavioral observations of the patient and the patient's response to the treatment. Review of the ongoing treatment process in the context of the treatment plan. Indication of how multi-disciplinary staff members are carrying out the treatment plan. Plans for future interventions and recommendations for revision of the treatment plan. Liaison with other physicians/providers. Progress Note: PSYCHIATRIST NOTE, 10/18/2016: I discussed this patient's presentation and progress thus far, current mental status, treatment and discharge planning with staff team today in the daily morning ITTM and our current medical student, Tram Padilla, and I also met together with patient in individual session. 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 I did explain to patient that two of the central factors in discharging from [facility] are that we know that a patient had a secure place to live (and can confirm this somehow) and that patient has appropriate f/u aftercare arranged and accepted by him/her; I made clear that we would endeavor to provide no more than basic, essential details to outside informants/services and even then only with his written permission; I invited him to be present at any outside contact/liaison/referral we make for him. Following his previous [facility] admission in 02/2016 patient had followed for a few weeks in the [facility] and said he would be willing to transition through there again at this time. Except for a degree of mild paranoia patient spoke clearly and coherently and expressed thinking was free of overt psychotic features at this time. Patient had been started on Abilify, 5mg daily, upon admission; he denies any side effects on this dose, has additional PRN's of same now. Patient had been out of treatment and off medication since after his last clinic appointment in 06/2016 at which time he was on Abilify, 15mg daily. He claims to have not felt much different since then.
[2016-10-18 16:30] VITALS: BP 123/68
[2016-10-18 20:18] VITALS: BP 129/64
--- NOTE | 2016-10-18 20:44 | NUR ---
PT IS CALM, COOPERATIVE WITH STAFF AND PEERS, AND COMPLIANT WITH UNIT RULES. BOTH IN AND OUT OF MILIEU, WHILE IN MILIEU STAYING IN THE PERIPHERY. SLIGHTLY ISOLATIVE AT TIMES. MOOD IS STABLE, AFFECT IS EUTHYMIC TO FULL RANGE, COMMUNICATION IS ORGANIZED AND APPEARS NORMAL IN ALL RESPECTS, AND APPETITE IS NORMAL. PT DENIES SI AT THIS TIME.
[2016-10-19 07:47] VITALS: BP 110/64
--- NOTE | 2016-10-19 11:34 | SOCIAL WORKER PROG NOTE PSYCH ---
Social Work Progress Note Progress Note Discussed Dominik with Dr. Lange his progress and discharge planning. Plan to reachout to Yulisa Gilliland , Giovanna's friend for a meeting. Ms. Gilliland stated she wants to speak with a social worker school this afternoon, does not have time this morning to talk, she was agitated. Met with Dominik he reports feeling good, denied SI/HI, AH/VH. He was in bed reading a book this morning. He agrees to follow-up with [facility]. He is guarded about with whom he resides in [place], [place]. Dominik seemed irritated with this SW, wanted to have Christine Berg WORD PROCESSOR TECHNICIAN meet with him and his friend, scheduled the phone conference meeting for tomorrow afternoon with Christine. Christine to arrange the time with Dominik and Yulisa. Transfer to [facility] completed and Faxed. TC to [employer] plan to complete scheduled insurance review for continued stay at 4pm today with Jesika [phone], [id number].
[2016-10-19 12:07] VITALS: BP 111/66
--- NOTE | 2016-10-19 12:57 | NUR ---
PT IS COMPLIANT AND COOPERATIVE WITH UNIT RULES. PT IS ISOLATIVE IN ROOM FOR MOST OF THE SHIFT, COMING OUT WENT ASKED MY STAFF. PT IS NOT ATTENDING ANY GROUPS. PT IS ISOALTIVE IN BED READING FOR PART OF THE SHIFT. PT MOOD IS STABLE WITH ETHUYMIC AFFECT. PT DENIES SI THOUGHTS.
[2016-10-19 16:06] VITALS: BP 127/70
--- NOTE | 2016-10-19 16:25 | SOCIAL WORKER PROG NOTE PSYCH ---
Social Work Progress Note Progress Note [place] - Jesika/[facility]#[phone], x [phone]. provided clinical AUTH given with review due on 10/21. AUTH# [id number]
--- NOTE | 2016-10-19 18:05 | CP SOUTH PROGRESS NOTE PSYCH ---
Psych (Inpt) Progress Note Progress Note Include the following elements, when applicable: Involvement in the active treatment of the patient with behavioral observations of the patient and the patient's response to the treatment. Review of the ongoing treatment process in the context of the treatment plan. Indication of how multi-disciplinary staff members are carrying out the treatment plan. Plans for future interventions and recommendations for revision of the treatment plan. Liaison with other physicians/providers. Progress Note: PSYCHIATRIST NOTE, 10/19/2016: I discussed this patient's progress to date, current mental status, treatment and discharge planning with staff team today in the daily morning ITTM and also met with him again myself in individual session. Patient was calm, coherent, [id number] but superficial, presenting no behavioral problems on the unit milieu. He denied any side effects on current low dose Ability and agreed to doubling dose tomorrow morning, 10/20/2016, to 10mg/day. He continues to agree to following up again in the [facility], as he had done after discharge from his initial admission here in 02/2016. In fact, patient had completed some weeks in [facility] and then was seen individually in OPS until he broke off contact after his 06/[address] Veliz in 06/2016. We are looking to have a meeting with patient and some significant other, friend, etc. He has refused us permission to have any contact with his parents or ex-g/f Shelia, much less have a meeting with any of them. Patient says he has a place to stay with with a "friend" in [place], [place]., but has not permitted us to have any contact with this friend or even to know friend's name; certainly some of this is a product of paranoia but from patient's point- of-view, as he expressed it to me emphaticly yesterday, 10/18/2016, he has lost trust in our system to respect his confidentiality with any information he does provide or to even not have contact with someone when he asks us not to.
[2016-10-19 19:37] VITALS: BP 139/72
--- NOTE | 2016-10-19 20:15 | NUR ---
PT IS CALM, COOPERATIVE WITH STAFF AND PEERS, AND COMPLIANT WITH UNIT RULES. BOTH IN AND OUT OF MILIEU, LIMITED INTERACTION WITH OTHERS. MOOD IS STABLE, AFFECT IS EUTHYMIC TO FULL RANGE, COMMUNICATION IS ORGANIZED AND APPEARS NORMAL IN ALL RESPECTS, ABD APPETITE IS NORMAL. PT DENIES SI AT THIS TIME.
--- NOTE | 2016-10-20 03:45 | NUR ---
PT. AWAKE TALKING TO STAFF.
[2016-10-20 07:43] VITALS: BP 110/79
--- NOTE | 2016-10-20 12:04 | SOCIAL WORKER PROG NOTE PSYCH ---
Social Work Progress Note Progress Note [facility] [place]
--- NOTE | 2016-10-20 12:05 | SOCIAL WORKER PROG NOTE PSYCH ---
Social Work Progress Note Progress Note Pt and I spoke to Yulisa a friend he identified as supportive. The call was done via speaker phone, pt signed a release. The 2 have been friends since 2010, she encouraged pt to stay on medications, noting you can be creative and be medicated, he interjects "I know you don't have to lose your mind to be creative ". Pt showing poor judgement in regards to his relationship insists he needs his fishtank and clothes and books at her house, Yulisa suggest to him that he take someone with him, he mentions he was told to tell the police when and if he goes there, just as as safety precaution. Pt will not sign a release for his parents, and gives limited information about the friend he is staying with, he states he is not returning to an unsafe enviornment and feels his parents will be supportive. I encouarged him again to have me speak with them. Pt agreeable to stay on Abilify and to attedn [facility].
[2016-10-20 12:29] VITALS: BP 120/86
--- NOTE | 2016-10-20 13:19 | NUR ---
PT IS OVERALL CALM, COOPERATIVE AND PLEASANT, NO ISSUES OR COMPLAINTS REPORTED OR OBSERVED, ATTENDING GROUPS AND REPORTED + MOOD/OK SLEEP AND GOAL FOR TODAY WAS TO DISCUSS A POTENTIAL FAMILY MEETING WITH THE BAG SHOP WORKER. PT IS APPROPRIATE AND WANDERS AT TIMES, NOT ATTENDING OTHER GROUPS LATER IN THE DAY THOUGH.
[2016-10-20 15:57] VITALS: BP 120/68
--- NOTE | 2016-10-20 15:58 | SOCIAL WORKER PROG NOTE PSYCH ---
Social Work Progress Note Progress Note The patient has 3 insurances on file and each one was contacted for prior authorization. 1. [employer] with a carve out to [employer] ( ) due 10/21/16 (see Radha's note) The associated Reference # is [id number] 2. [facility] Reviewer: [place] Authorization # [id number] October 20, 2016 [place] [phone] next review due 3. [employer]- due online 10/21/16 3. [employer]- online prior authorization obtained through [facility] Online Portal and listed as "pended." Pended Authorization # [id number] Client Authorization # [id number] Type of Request INITIAL
--- NOTE | 2016-10-20 17:52 | NUR ---
PT IS CALM, COOPERATIVE WITH STAFF AND PEERS, AND COMPLIANT WITH UNIT RULES. BOTH IN AND OUT OF MILIEU. WHILE IN MILIEU HAS LIMITED INTERACTIONS WITH OTHERS. MOOD IS STABLE, AFFECT IS EUTHYMIC TO FULL RANGE, COMMUNICATION IS ORGANIZED AND APPEARS NORMAL IN ALL RESPECTS, AND APPETITE IS NORMAL. PT DENIES SI AT THIS TIME.
[2016-10-20 19:58] VITALS: BP 144/65
--- NOTE | 2016-10-20 21:05 | CP SOUTH PROGRESS NOTE PSYCH ---
Psych (Inpt) Progress Note Progress Note Include the following elements, when applicable: Involvement in the active treatment of the patient with behavioral observations of the patient and the patient's response to the treatment. Review of the ongoing treatment process in the context of the treatment plan. Indication of how multi-disciplinary staff members are carrying out the treatment plan. Plans for future interventions and recommendations for revision of the treatment plan. Liaison with other physicians/providers. Progress Note: PSYCHIATRIST NOTE, 10/20/2016: I discussed this patient's progress to date, current mental status, treatment and discharge planning with staff team today in the daily morning ITTM and also met with him again myself in individual session. Patient had a telephone conference call meeting with his good friend (since 2010) Yulisa and Ms. Zimmerman today; Yulisa gave him sound advise, including to bring the police with him to any further trip to retreive some of his things from ex- girlfriend's place; she also encouraged him to continue to take his medication and keep aftercare appointments. Patient has no complaints of side effects on current Abilify dose and is willing to continue taking it. 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
--- NOTE | 2016-10-21 07:02 | NUR ---
PT WITH POSSIBLE FAMILY MEETING TODAY. PT ON THE PERIPHERY, IN ROOM MOSTLY ON EVENINGS PT WAS UP A FEW TIMES IN THE NIGHT. PT UP EARLY.
[2016-10-21 07:28] VITALS: BP 125/75
--- NOTE | 2016-10-21 08:49 | SOCIAL WORKER PROG NOTE PSYCH ---
Social Work Progress Note Progress Note Met with Dominik this morning. He stated he is ready to discharge, and plans to attend [facility] program. He has an intake today, 10/21/16 at 12:45pm at [facility]. Dominik agrees to abstain from Cannibis. He denied any SI/HI, reported no AH/ VH. He was calm, cooperative and in a pleasant mood. 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 Discussed importance of taking care of himself, and keeping the focus on his goals and let go of relationships that may be distract him from caring for himself (obsessive or toxic relationships). He agreed, and stated he was helping his ex-girlfriend too much, and realized he forgot about himself. Dominik will consider the [facility] - on 10/26/16 at 4pm with Lily Nuñez LCSW at [address] [place] [address] Ave. in [place]. He plans to walk (to his parents house) which is "only 1/2 hour away." He said he wants to be outside today in the nice weather. He is not interested in any further meetings with who he resides with in [place], or his parents. Discharges completed with Jair [facility]RD and [facility]. Fax W10 to [facility].
--- NOTE | 2016-10-21 10:36 | NUR ---
WILL BE DISCHARGED TODAY TO [facility] AND HAS INTAKE AT [facility] SCHEDULED FOR 12:45 TODAY. MOOD IS STABLE, EUTHYMIC AFFECT, DENIED THOUGHTS OF SELF HARM WHEN ASKED. GIVEN EDUCATION ON SCHIZOAFFECTIVE D/O AND CANNABIS ABUSE
[2016-10-21] MEDS ORDERED: ABILIFY5 M1 PO ×2 (10:55→10:59)
--- NOTE | 2016-10-21 15:31 | SOCIAL WORKER PROG NOTE PSYCH ---
Social Work Progress Note Progress Note Completed Discharge clinical online [facility] (for inpatient stay) [facility] - Jesika , x [phone] - left discharge clinical on her VM requested call back with confirmation of Inpatient AUTH and requested AUTH for IOP start date 10/24/16 for 12-15 days/units. Awaiting call back with AUTH. Jair Arreola - called and left discharge clinical on voicemail, also asked for call back for inaptient AUTH and IOP Tra AUTH starting on 10/24/16 for 12-15 units awaiting call back.
--- NOTE | 2016-10-21 15:36 | CP SOUTH PROGRESS NOTE PSYCH ---
Psych (Inpt) Progress Note Progress Note Include the following elements, when applicable: Involvement in the active treatment of the patient with behavioral observations of the patient and the patient's response to the treatment. Review of the ongoing treatment process in the context of the treatment plan. Indication of how multi-disciplinary staff members are carrying out the treatment plan. Plans for future interventions and recommendations for revision of the treatment plan. Liaison with other physicians/providers. Progress Note: PSYCHIATRIST NOTE (DISCHARGE), 10/21/2016: I discussed this patient's progress to date, current mental status, treatment and discharge plans with staff team today in the daily morning ITTM and met with her again in individual session prior to discharging him directly seamlessly to intake at [facility] for 12:45pm today. Patient denied any side effects on current low dose Abilify but did say that it tends to make him tired during the day when taking in AM; we will move Abilify to HS and increase dose to 10mg/night. Patient denied any intention of having further contact with his ex-girlfriend and will have a friend accompany him if he needs to retreive any last items from the apartment they had shared until recently. Patient said he now has a more cordial relationship with a female friend Yulisa who he has known for over 5 years but doubts he will "take on another girlfriend soon" after his unhappy experience with recent break-up and ex-girlfriend's continuing efforts to have contact with him; that woman's repeated calls to the outpatient clinic contributed to the current admission. Patient also feels that his parents try to "control" him but he does little to separate himself from them; patient insists he will not be staying with his parents post-discharge but will be at a "friend's" place in [place], [place].; patient had been somewhat bordering on paranoid but attributes this to feeling that his privacy had been breached by a recent disability aide, so being shy about disclosing "too much" to current treaters lest the same happen to him again (and, for instance, his ex-g/f find out where he is going to be living post-discharge). Patient claims he is eating and sleeping well now, appears calm and euthymic, showing no current evidence of suicidal or homicidal ideation, plans, intent or impulses and well aware of his safety plan should he ever in future find himself concerned he might be at acute risk to self-harm or to harm others. I called into [facility] ([place]), [place], on day of discharge, 10/21/2016: Abilify, 10mg: i tab nightly at HS; #14 with no refills (to help clarify thinking/stabilize moods) Abilify, 5mg: i tab PRN racing thoughts; #14 with no refills (patient is currently taking a total of 10-15mg/day of Abilify) patient was also encouraged to utilize the nicotine patch OTC to help reduce craving for cigarettes/tobacco (though he had refused to use same during this admission) and is aware that he should not smoke tobacco while using the patch; he was given an appointment card for the next [facility] Smoking Cessation Group scheduled on 11/02/2016 at 4pm, facilitated by Lily Nuñez LCSW
--- NOTE | 2016-10-21 16:58 | DISCHARGE SUMMARY REPORT-PSYCH ---
Visit Information Visit Dates/Diagnosis' Admission Date: 10/15/16 Discharge Date: 10/21/16 Reason for Admission: "Did you actually talk to every single person who has ever known me?" Psy Discharge Primary Diag: Schizoaffective Disorder, Mixed; MRE Mixed with ( paranoid) psychotic f. Hospital Course Significant Lab Findings: glucose = 173; Hgb = 13.9; lymphs = 19.7%; ANNELISE = less than 10.0; urine for drugs of abuse--positive for cannabis (60.50ng/ml); for details of all normal range laboratory data from this admission, see the electronic medical record Course Complications: none Consultations: patient was seen for an admission medical H&P by Lisa Diaz M.D., and [facility] staff physicians Allergies: Coded Allergies: NO KNOWN ALLERGIES (08/11/12) Hospital Course/TX Response: Patient was quite upset over and perservated for some time on the allegation that patient confidentiality had been compromised during the week [employer] by various contacts which were accepted in OPS by his "ex-girlfriend" and even after he had allegedly called to say that he did not give permission for anyone here to speak with his "ex-." This upset on his part probably contributes to the degree of guardedness/suspicion he is currently showing, being unconvinced that what he talks about with us will be held in confidence. I did explain to patient that two of the central factors in discharging from [facility] are that we know that a patient had a secure place to live (and can confirm this somehow) and that patient has appropriate f/u aftercare arranged and accepted by him/her; I made clear that we would endeavor to provide no more than basic, essential details to outside informants/services and even then only with his written permission; I invited him to be present at any outside contact/liaison/referral we make for him. Following his previous [facility] admission in 02/2016 patient had followed for a few weeks in the [facility] and said he would be willing to transition through there again at this time. Except for a degree of mild paranoia patient spoke clearly and coherently and expressed thinking was free of overt psychotic features at this time. Patient had been started on Abilify, 5mg daily, upon admission; he denies any side effects on this dose, has additional PRN's of same now. Patient had been out of treatment and off medication since after his last clinic appointment in 06/2016 at which time he was on Abilify, 15mg daily. He claims to have not felt much different since then. Patient was discharged directly/seamlessly to intake at [facility] for 12: 45pm on day of discharge. Patient denied any side effects on current low dose Abilify but did say that it tends to make him tired during the day when taking in AM; we will move Abilify to HS and increase dose to 10mg/night. Patient denied any intention of having further contact with his ex-girlfriend and will have a friend accompany him if he needs to retreive any last items from the apartment they had shared until recently. Patient said he now has a more cordial relationship with a female friend Crystal who he has known for over 5 years but doubts he will "take on another girlfriend soon" after his unhappy experience with recent break-up and ex-girlfriend's continuing efforts to have contact with him; that woman's repeated calls to the outpatient clinic contributed to the current admission. Patient also feels that his parents try to "control" him but he does little to separate himself from them; patient insists he will not be staying with his parents post-discharge but will be at a "friend's" place in [place], [place].; patient had been somewhat bordering on paranoid but attributes this to feeling that his privacy had been breached by a recent supervisor of research, so being shy about disclosing "too much" to current treaters lest the same happen to him again (and, for instance, his ex-g/f find out where he is going to be living post-discharge). Patient claims he is eating and sleeping well now, appears calm and euthymic, showing no current evidence of suicidal or homicidal ideation, plans, intent or impulses and well aware of his safety plan should he ever in future find himself concerned he might be at acute risk to self-harm or to harm others. Discharge HBIPS - Tobacco Use Treatment Offered Post DC Medications Offered: Script Given-See Med List Post DC Tobacco Treatment Plan: Tra Tobacco Tx Pgm Program Appt Date: 11/02/16 Program Appt Time: 1600 (next group 11/02/16 at 4pm) - EtOH/Drug Use D/O Treatment Offered Post DC Medications Offered: NA-No EtOH/Drug Use D/O Post DC EtOH/SubAbuse TX Plan: NA-No EtOH/Drug Use D/O Metabolic Screening - Screen if on a Neuroleptic Medication - Metabolic screening should include: - Blood Pressure, BMI, Glucose or Hgb A1c, & a - Lipid profile from within the past 365 days. Metabolic Screening () Not Applicable, patient not on a neuroleptic. OR ([x]) Patient on a neuroleptic(s) . Enter below results for Glucose or Hemoglobin A1C, and lipid panel if obtained during the last 365 days. BMI: 22.900 Blood Pressure: 125/75 Laboratory Results (If applicable): [x] glucose = 173 (drawn on 10/14/2016) glycos hgb A1c = 5.7 (drawn on 02/21/2016) cholesterol = 156 (all below drawn on 02/21/2016) triglycerides = 83 HDL = 85 LDL = 55 Discharge Instructions General Discharge Information Discharge Medications: I called into [facility] (Currently), [place], [place]., on day of discharge, 10/21/2016: Abilify, 10mg: i tab nightly at HS; #14 with no refills (to help clarify thinking/stabilize moods) Abilify, 5mg: i tab PRN racing thoughts; #14 with no refills (patient is currently taking a total of 10-15mg/day of Abilify) patient was also encouraged to utilize the nicotine patch OTC to help reduce craving for cigarettes/tobacco (though he had refused to use same during this admission) and is aware that he should not smoke tobacco while using the patch; he was given an appointment card for the next Tra Smoking Cessation Group scheduled on 11/02/2016 at 4pm, facilitated by Lily Nuñez LCSW Multiple Neuroleptics: ([x]) Not Applicable OR Document below three failed attempts at monotherapy, or a plan to taper to monotherapy, or augmentation of Clozapine. () Patient's Diet: heart healthy Patient's Activity: without restrictions DC Disposition: to the home of a friend in [place], [place]. Recommendations: I would recommend consideration of a therapeutic trial on a primary mood stabilizer. Referred To: Patient was referred directly to intake at the [facility] at 12:45pm on the day of discharge; he agreed prior to discharge to completely abstain from any use of Marijuana throughout programming at the [facility]. Patient was given an appointment card for the next [facility]essation Group scheduled for 10/26/2016 at 4pm, facilitated by Lily Nuñez LCSW. Copies To: JENNY MARMOLEJO,KATHIE SORENSEN DOMINION HOSPITALParesh JONES,HANNY
== END 2016-10-21 12:10 | DRG 885 ==
LOC: ERH 16:40 → CP SOUTH 10-15 11:05 → ERHI 10-15 11:05 → ENTRNSPT 10-15 17:10 → CANRESERV 10-15 17:14 → ENRESERV 10-15 17:14 → CP SOUTH 10-15 17:27 → CMPTRNSPT 10-15 17:38 → DELTRNSPT 10-15 17:40 → CP SOUTH 10-18 09:22 → ENPENDDIS 10-21 13:30
PROVIDERS: Emergency Medicine; ADMIT Psychiatry & Neurology Addiction Medicine
DX: F25.0 Schizoaffective disorder, bipolar type (principal)
CPT/HCPCS: 80307; 93005; 93010; G0463; G0480; J3490

== ENCOUNTER 2016-11-02 01:21 | Inpatient (IN) | payer OTHER ==
[~2016-11-02] VITALS: Ht 175.3 cm; Wt 67.8 kg
[~2016-11-02 01:21] MED LIST changes: +ABILIFY5 M1 PO
--- NOTE | 2016-11-02 01:35 | ED GENERAL ADULT ---
History of Present Illness General Chief Complaint: General Adult Stated Complaint: DEHYDRATION/THIRSTY Source: patient, old records, EMS Exam Limitations: confusion Vital Signs & Intake/Output Vital Signs & Intake/Output Vital Signs Date Time Temp Pulse Resp B/P B/P Pulse O2 O2 Flow FiO2 Mean Ox Delivery Rate 11/06 1952 97.9 86 134/80 11/06 1614 77 129/78 11/06 1527 97.4 11/06 1248 97.4 11/06 1227 82 138/78 11/06 1009 97.4 11/06 0749 97.4 87 136/78 Allergies Coded Allergies: NO KNOWN ALLERGIES (08/11/12) Reconcile Medications Albuterol Sulfate (Proventil Hfa) 6.7 GM HFA.AER.AD 2 PUF INH PRN ASTHMA ( Reported) Aripiprazole (Abilify) 5 MG TABLET 5 MG PO Q6H PRN irritable/racing thoughts/ insomnia Aripiprazole (Abilify) 5 MG TABLET 5 MG PO DAILY clarify and calm thoughts Triage Note: 36YO MALE TO [place] VIA AMB SP FOUND WALKING IN [place] FEELING DEHYDRATED. PT HAS PSYCH HX --UNSURE HE IS TAKING HIS DAILY [facility]. Triage Nurses Notes Reviewed? yes HPI: Patient called 911 after his car broke down. Patient complaining that he feels very thirsty and dehydrated. Patient states that he was driving here to the hospital but is unsure why he was coming here. Patient has a history of schizoaffective disorder and has been noncompliant with his medications. Patient isn't sure when the last time he takes medication was. The patient is a very poor historian and appears to be very responded to internal stimuli. Patient is very fidgety but not agitated. Patient is redirectable. He denies homicidal or suicidal ideations. (PRAKASH OJEDA,KENNETH Arellano) Past History Travel History Traveled to [place] past 21 day No Medical History Any Pertinent Medical History? see below for history Neurological: NONE EENT: allergies Cardiovascular: NONE Respiratory: childhood asthma (diagnosed age 9 yrs) Gastrointestinal: NONE Hepatic: NONE Renal: NONE Musculoskeletal: NONE Psychiatric: schizo affective disorder Endocrine: NONE Blood Disorders: NONE Cancer(s): NONE MILITARY PROFESSIONAL/Reproductive: NONE Other Medical Hx: Acne History of MRSA: No History of VRE: No History of CDIFF: No Surgical History Surgical History: appendectomy, Closed reduction of right knee dislocation Psychosocial History Who do you live with Patient/Self Services at Home None What is your primary language Korean Tobacco Use: Cognitive Impairment ETOH Use: denies use Illicit Drug Use: marijuana Family History Family History, If Any: FATHER (HTN, DM.). MOTHER (HTN.). SISTER (HTN.). Maternal grandfather (Lung cancer). Uncle (CAD s/p stent.). Relation not specified for: *No pertinent family history Hx Contributory? No (PRAKASH OJEDA,KENNETH Arellano) Review of Systems Review of Systems Constitutional: Reports: see HPI. Neurological/Psychological: Reports: see HPI. (PRAKASH OJEDA,KENNETH Arellano) Physical Exam Physical Exam General Appearance: well developed/nourished, alert, awake, anxious, moderate distress Head: atraumatic, normal appearance Eyes: Bilateral: PERRL, EOMI. Ears, Nose, Throat: normal pharynx, normal ENT inspection, hearing grossly normal Neck: normal inspection, supple, full range of motion Respiratory: normal breath sounds, chest non-tender, no respiratory distress, lungs clear Cardiovascular: regular rate/rhythm, normal peripheral pulses Gastrointestinal: normal bowel sounds, soft, non-tender, no organomegaly Back: normal inspection, normal range of motion Extremities: normal inspection, normal capillary refill, normal range of motion, no edema Neurologic/Psych: no motor/sensory deficits, awake, alert, oriented x 3, normal mood/affect Skin: intact, normal color, warm/dry Lymphatic: no anterior cervical david Core Measures ACS in differential dx? No CVA/TIA Diagnosis: No Severe Sepsis Present: No Septic Shock Present: No (PRAKASH OJEDA,KENNETH Arellano) Progress Differential Diagnoses I considered the following diagnoses in my evaluation of the patient: [Med noncompliance] Plan of Care: Current Medications Sig/Fran Start time Last Medication Dose Stop Time Status Admin Multi-Ingred Cream/ 1 AMBER Q2 HRS NEEDED PRN 11/05 2230 AC 11/06 Lotion/Oil/Oint 2315 (Calamine Lotion) Nicotine 21 MG 0800 11/05 0800 AC 11/06 (Nicoderm) 0946 Aripiprazole 15 MG QPM 11/04 2200 AC 11/06 (Abilify) 2134 Aripiprazole 2 MG Q4 HRS NEEDED PRN 11/04 0830 AC (Abilify) Nicotine 2 MG Q2 HRS NEEDED PRN 11/04 0800 AC 11/06 (Nicotine) 2134 Acetaminophen 650 MG Q4P PRN 11/02 1500 AC 11/06 (Tylenol) 2134 Al Hydroxide/Mg 30 ML Q4-6 PRN PRN 11/02 1500 AC Hydroxide (Maalox Plus) Lorazepam 1 MG Q6-PRN PRN 11/02 1500 AC 11/06 (Ativan) 0040 Magnesium Hydroxide 30 ML AT BEDTIME PRN 11/02 1500 AC (Milk Of Magnesia) Initial ED EKG: none Hand-Off Endorsed To: KISHORE FERNÁNDEZ MD Endorsed Time: 0700 Pending: consult (KENNETH RANDALL MD) Diagnostic Imaging: Viewed by Me: Radiology Read. Discussed w/RAD: Radiology Read. Radiology Impression: no acute abnormality, no fracture, no dislocation Hand-Off Endorsed To: RANDA CARBONE MD Endorsed Time: 1500 Pending: other (voluntary CPS admit?) (KISHORE FERNÁNDEZ MD) Departure Departure Disposition: STILL A PATIENT Condition: Stable Clinical Impression Primary Impression: Schizo affective schizophrenia Referrals: PATIENT HAS NO PRIMARY CARE DR (PCP/Family) Departure Forms: Customer Survey General Discharge Information (KENNETH RANDALL MD) Departure Time of Disposition: 1447 Psych Admission Note Psychiatric Admission: I have seen and evaluated SEVEN CLEMONS. I have also reviewed all the pertinent lab results and diagnostic results. SEVEN CLEMONS will be admitted to our inpatient Psychiatric unit for treatment and care. (RANDA CARBONE MD) Critical Care Note Critical Care Note Critical Care Time: non-applicable (KENNETH RANDALL MD) Disposition: STILL A PATIENT Condition: Stable Clinical Impression Primary Impression: Schizo affective schizophrenia Referrals: PATIENT HAS NO PRIMARY CARE DR (PCP/Family) Departure Forms: Customer Survey General Discharge Information (KENNETH RANDALL MD) Critical Care Note Critical Care Note Critical Care Time: non-applicable (KENNETH RANDALL MD)
[2016-11-02 02:12] LABS: ABSOLUTE BASOPHIL COUNT 0 /CUMM (0.0-0.2); ABSOLUTE EOSINOPHIL COUNT 0 /CUMM (0.0-0.7); ABSOLUTE GRANULOCYTE CT 9.7 /CUMM (1.4-6.5); ABSOLUTE MONOCYTE COUNT 0.9 /CUMM (0.10-0.60); BASOPHIL % 0.3 % (0.0-2.0); EOSINOPHIL % 0.3 % (0-5); GRANULOCYTE % 76.1 % (42.2-75.2); HEMATOCRIT 40.6 % (42-52); MEAN CORPUSCULAR HGB 27.8 PG (27.0-31.0); MEAN CORPUSCULAR HGB CONC 32.5 G/DL (33.0-37.0); MEAN CORPUSCULAR VOLUME 85.6 FL (80.0-94.0); MEAN PLATELET VOLUME 10.1 FL (7.4-10.4); PLATELET COUNT 227 /CUMM (130-400); RBC DISTRIBUTION WIDTH 13.1 % (11.5-14.5); RED BLOOD CELL CT 4.75 /CUMM (4.70-6.10); WHITE BLOOD CELL COUNT 12.7 /CUMM (4.8-10.8)
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
--- NOTE | 2016-11-02 14:42 | RADIOLOGY REPORT ---
EXAMINATION: XR FOOT, RIGHT XR FOOT, LEFT XR ANKLE, LEFT XR ANKLE, RIGHT CLINICAL INFORMATION: Plantar pain in each foot with walking. Pain of the left lateral malleolus and pain of the right medial malleolus. COMPARISON: None TECHNIQUE: Left ankle, 3 views Right ankle, 3 views Right foot, 3 views Left foot, 3 views FINDINGS: Left ankle: The talar dome is well-positioned within the intact ankle mortise. The tibiotalar joint space and tibiofibular syndesmotic space are normal. No arthritic deformity, fracture, subluxation or ankle joint effusion. Left foot: Bones have normal density and alignment throughout the foot. No arthritic deformity, fracture, subluxation, osseous erosion or periostitis. No radiopaque foreign bodies within the foot. Right ankle: The talar dome is well-positioned within the intact ankle mortise. The tibiotalar joint space and tibiofibular syndesmotic space are normal. No arthritic deformity, fracture, subluxation or ankle joint effusion. Right foot: Bones have normal density and alignment. The joint spaces are well-preserved throughout the foot. No fracture, subluxation, osseous erosion or periostitis. There are no radiopaque foreign bodies in the plantar aspect of the foot. IMPRESSION: 1. Normal right ankle. 2. Normal left ankle. 3. Normal right foot. 4. Normal left foot.
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
[2016-11-02 19:48] VITALS: BP 122/67
--- NOTE | 2016-11-02 20:41 | PN- Gen Med ---
Assessment/Plan Assessment: 36 yo Male with hx asthma and schizoaffective disorder is admitted to Inpatient Psychiatry for Schizoaffective d/o, paranoia, disorganized thinking, halllucinations and delusions. He called 911 after his car broke down, complaining that he feels very thirsty and dehydrated. He has rash on the RUL near elbow, nonitching. He said that I may have been covered with poison micaela yesterday. He admits eating for marijuana brownies yesterday. He smokes many cigarettes but denies alcohol use. Otherwise 14 point ROS negative. # Schizoaffective d/o, paranoia: Management per Psych team. # asthma: Albuterol inhaler as needed # rash on right foream : conservative managment, if owrseing then Benadryl PO # left ankle pain: fracture ruled out in ER Problem List: 1. Cigarette smoker 2. Schizoaffective disorder 3. Asthma Plan: As above. DVT/Prophylaxis: early ambulation low risk Subjective Follow-up For: Schizoaffective d/o, paranoia, disorganized thinking, halllucinations and delusions. Complaints: no complaints Subjective: See A and P Review of Systems Constitutional: Reports: see HPI. EENTM: Reports: no symptoms. Cardiovascular: Reports: no symptoms. Respiratory: Reports: no symptoms. Gastrointestinal: Reports: no symptoms. Genitourinary: Reports: no symptoms. Musculoskeletal: Reports: joint pain. Denies: joint swelling. Skin: Reports: rash. Neurological/Psychological: Reports: no symptoms. Hematologic/Endocrine: Reports: no symptoms. Objective Last 24 Hrs of Vital Signs/I&O Vital Signs Date Time Temp Pulse Resp B/P B/P Pulse O2 O2 Flow FiO2 Mean Ox Delivery Rate 11/028 96.0 69 122/67 11/02 1518 98.2 56 16 117/56 97 Room Air 11/02 0631 97.7 74 18 114/68 98 Room Air 11/02 0125 98.5 79 18 108/63 95 Room Air Intake & Output 11/02 0000 11/02 0800 11/02 1600 Intake Total 0 Output Total Balance 0 Intake, Oral 0 Patient 68.946 kg Weight Physical Exam General Appearance: Alert, Oriented X3, Cooperative, No Acute Distress Skin: 2 lesions , 1 cm diameter each macular rash on forarm near elbow, One pictured wound on right middle finger tip with surrounding blister : not infected, one puctured wound on left thumb tip : not infected HEENT: Atraumatic, PERRLA, EOMI Neck: Supple, No JVD, No thryomegaly Lymphatic: Cervical nl Cardiovascular: Regular Rate, Normal S1, Normal S2, No Murmurs Lungs: Clear to Auscultation, Normal Air Movement Abdomen: Normal Bowel Sounds, Soft, No Tenderness, No Hepatospenomegaly Neurological: Normal Gait, Strength at 5/5 X4 Ext, Normal Tone, Sensation Intact , Cranial Nerves 3-12 NL Extremities: No Clubbing, No Cyanosis, No Edema Vascular: Normal Pulses Last 24 Hrs of Labs/Mics: Laboratory Tests 11/02 11/02 UNK 0200 Chemistry Sodium (137 - 145 mmol/L) 149 H Potassium (3.5 - 5.1 mmol/L) 3.8 Chloride (98 - 107 mmol/L) 108 H Carbon Dioxide (22 - 30 mmol/L) 26 Anion Gap (5 - 16) 15 BUN (9 - 20 mg/dL) 21 H Creatinine (0.7 - 1.2 mg/dL) 1.1 Estimated GFR (>60 ml/min) > 60 BUN/Creatinine Ratio (7 - 25 %) 19.1 Glucose (65 - 99 mg/dL) 110 H Calcium (8.4 - 10.2 mg/dL) 10.3 H Total Bilirubin (0.2 - 1.3 mg/dL) 0.8 AST (17 - 59 U/L) 126 H ALT (21 - 72 U/L) 46 Alkaline Phosphatase (< 127 U/L) 66 Total Protein (6.3 - 8.2 g/dL) 7.8 Albumin (3.5 - 5.0 g/dL) 4.6 Globulin (1.9 - 4.2 gm/dL) 3.2 Albumin/Globulin Ratio (1.1 - 2.2 %) 1.4 Hematology CBC w Diff NO MAN DIFF REQ WBC (4.8 - 10.8 /CUMM) 12.7 H RBC (4.70 - 6.10 /CUMM) 4.75 Hgb (14.0 - 18.0 G/DL) 13.2 L Hct (42 - 52 %) 40.6 L MCV (80.0 - 94.0 FL) 85.6 MCH (27.0 - 31.0 PG) 27.8 RDW (11.5 - 14.5 %) 13.1 Plt Count (130 - 400 /CUMM) 227 MPV (7.4 - 10.4 FL) 10.1 Gran % (42.2 - 75.2 %) 76.1 H Lymphocytes % (20.5 - 51.1 %) 16.0 L Monocytes % (1.7 - 9.3 %) 7.3 Eosinophils % (0 - 5 %) 0.3 Basophils % (0.0 - 2.0 %) 0.3 Absolute Granulocytes (1.4 - 6.5 /CUMM) 9.7 H Absolute Lymphocytes (1.2 - 3.4 /CUMM) 2.0 Absolute Monocytes (0.10 - 0.60 /CUMM) 0.9 H Absolute Eosinophils (0.0 - 0.7 /CUMM) 0 Absolute Basophils (0.0 - 0.2 /CUMM) 0 PUBS MCHC (33.0 - 37.0 G/DL) 32.5 L Toxicology Urine Opiates Screen (>2000 NG/ML) < 100.00 Methadone Screen (>300 NG/ML) < 40 Barbiturate Screen (>200 NG/ML) < 60 Ur Phencyclidine Scrn (>25 NG/ML) < 6.00 Amphetamines Screen (>1000 NG/ML) 176 U Benzodiazepines Scrn (>200 NG/ML) < 85 Urine Cocaine Screen (>300 NG/ML) < 50 Urine Cannabis Screen (>50 NG/ML) 68.30 H Serum Alcohol (<10 MG/DL) < 10.0
[2016-11-03 07:37] VITALS: BP 128/78
--- NOTE | 2016-11-03 11:15 | SOCIAL WORKER PROG NOTE PSYCH ---
Social Work Progress Note Progress Note Pt was laying in bed, not interested in participating in groups this morning. Pt reiterated that he ahd locked his keys in his car in [place], and was picked up by police in [place] in attempt to get back to [place], he states 'thats my story, I don't know what else they told you'. Pt agrees to sign release and have parents come in for a family meeting. I had worked with pt his last admission he stated he does not remember meeting me, I mentioned a friend Yulisa that we spoke with upon discharge he is offered "Yulisa is no friend of mine", I was surprised to hear this, as they have been friends for a long time and she had been identified previously as a support. I asked pt what he was going to [place] for, "did you have a spare set of keys at home?", pt seemed to get offended by this question, he "stated my car got where it had to go, and that line of questioning is not going to get you anywhere, as far as [place]. Pt guarded and irritable, to speak with further.
--- NOTE | 2016-11-03 11:45 | SOCIAL WORKER PROG NOTE PSYCH ---
See Addendum Social Work Progress Note Progress Note Pt signed release for Mother [phone]. I left a voice mail requesting them coming in for a family meeting.
[2016-11-03 12:20] VITALS: BP 120/63
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
[2016-11-03 16:20] VITALS: BP 125/64
[2016-11-03 20:07] VITALS: BP 143/77
[2016-11-04 07:36] VITALS: BP 123/69
[2016-11-04 09:12] LABS: ABSOLUTE BASOPHIL COUNT 0 /CUMM (0.0-0.2); ABSOLUTE EOSINOPHIL COUNT 0.2 /CUMM (0.0-0.7); ABSOLUTE GRANULOCYTE CT 4.7 /CUMM (1.4-6.5); ABSOLUTE LYMPH COUNT 2.4 /CUMM (1.2-3.4); ABSOLUTE MONOCYTE COUNT 0.6 /CUMM (0.10-0.60); BASOPHIL % 0.5 % (0.0-2.0); GRANULOCYTE % 59.6 % (42.2-75.2); HEMATOCRIT 36.8 % (42-52); MEAN CORPUSCULAR HGB 28.1 PG (27.0-31.0); MEAN CORPUSCULAR HGB CONC 32.8 G/DL (33.0-37.0); MEAN CORPUSCULAR VOLUME 85.9 FL (80.0-94.0); MEAN PLATELET VOLUME 11.1 FL (7.4-10.4); PLATELET COUNT 197 /CUMM (130-400); RBC DISTRIBUTION WIDTH 13.4 % (11.5-14.5); RED BLOOD CELL CT 4.28 /CUMM (4.70-6.10); WHITE BLOOD CELL COUNT 7.9 /CUMM (4.8-10.8)
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
[2016-11-04 19:51] VITALS: BP 117/75
[2016-11-05 07:39] VITALS: BP 120/57
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
--- NOTE | 2016-11-05 12:57 | CP SOUTH PROGRESS NOTE PSYCH ---
Psych (Inpt) Progress Note Progress Note Include the following elements, when applicable: Involvement in the active treatment of the patient with behavioral observations of the patient and the patient's response to the treatment. Review of the ongoing treatment process in the context of the treatment plan. Indication of how multi-disciplinary staff members are carrying out the treatment plan. Plans for future interventions and recommendations for revision of the treatment plan. Liaison with other physicians/providers. Progress Note: patient seen chart reviewed d/w nursing staff he reports high anxiety and having lots of ptsd flash backs after recieving Haldol yesterday. he is happy with abilify and doesnt want any changes. he denies any current se of abilify which he is taking. denies depression denies si /hi or psychosis. AAOX3 Guarded, fair eye contact. normal speech. anxious mood flat affect. linear denies si/hi or psychosis. i/j both limited schizoaffective do continue current tx plan
[2016-11-05 12:58] VITALS: BP 126/66
[2016-11-05 16:08] VITALS: BP 145/74
[2016-11-05 19:57] VITALS: BP 133/78
[2016-11-06 07:49] VITALS: BP 136/78
[2016-11-06 12:27] VITALS: BP 138/78
--- NOTE | 2016-11-06 13:02 | CP SOUTH PROGRESS NOTE PSYCH ---
Psych (Inpt) Progress Note Progress Note Include the following elements, when applicable: Involvement in the active treatment of the patient with behavioral observations of the patient and the patient's response to the treatment. Review of the ongoing treatment process in the context of the treatment plan. Indication of how multi-disciplinary staff members are carrying out the treatment plan. Plans for future interventions and recommendations for revision of the treatment plan. Liaison with other physicians/providers. Progress Note: patient seen chart reviewed d/w nursing staff he was agitated this morning awake most of angela night, he has no complaints denie si/hi or psychosis. medication compfliant no se reported. wants to speak with his primary team CF, ASA guarded flat stare simple speech. fine mood flat affect irritable edge. denies si/hi or psychosis. i/j both limited schizoaffective d/o continue current tx plan
[2016-11-06 16:14] VITALS: BP 129/78
[2016-11-06 19:53] VITALS: BP 134/80
[2016-11-07 07:41] VITALS: BP 136/77
[2016-11-07 12:21] VITALS: BP 143/85
--- NOTE | 2016-11-07 14:19 | CP SOUTH PROGRESS NOTE PSYCH ---
Psych (Inpt) Progress Note Progress Note Include the following elements, when applicable: Involvement in the active treatment of the patient with behavioral observations of the patient and the patient's response to the treatment. Review of the ongoing treatment process in the context of the treatment plan. Indication of how multi-disciplinary staff members are carrying out the treatment plan. Plans for future interventions and recommendations for revision of the treatment plan. Liaison with other physicians/providers. Progress Note: I discussed this patient's progress to date, current mental status, treatment process in the context of the treatment plan, and discharge planning with staff/ team in the daily morning inpatient team meeting. I also met with the patient myself in individual session. Current Medications Sig/Fran Start time Last Medication Dose Route Stop Time Status Admin Acetaminophen 650 MG .STK-MED ONE 11/06 2135 DC PO 11/06 2136 Acetaminophen 650 MG .STK-MED ONE 11/06 1528 DC PO 11/06 1529 Acetaminophen 650 MG Q4P PRN 11/02 1500 AC 11/06 PO 2134 Al Hydroxide/Mg 30 ML Q4-6 PRN PRN 11/02 1500 AC Hydroxide PO Aripiprazole 15 MG QPM 16 2200 AC 11/06 PO 2134 Aripiprazole 2 MG Q4 HRS NEEDED PRN 11/04 0830 AC PO Ibuprofen 600 MG Q6-PRN PRN 11/07 1215 AC PO Lorazepam 1 MG Q6-PRN PRN 11/02 1500 AC 11/06 PO 0040 Magnesium Hydroxide 30 ML AT BEDTIME PRN 11/02 1500 AC PO Multi-Ingred Cream/ 1 AMBER Q2 HRS NEEDED PRN 11/05 2230 AC 11/07 Lotion/Oil/Oint EXT 1253 Nicotine 21 MG 0800 11/05 0800 AC 11/07 TOP 0740 Nicotine 2 MG Q2 HRS NEEDED PRN 11/04 0800 AC 11/06 PO 2134 Vital Signs Date Time Temp Pulse Resp B/P B/P Pulse O2 O2 Flow FiO2 Mean Ox Delivery Rate 11/07 1221 96 143/85 11/07 0741 96.1 75 136/77 11/06 1953 97.9 86 134/80 11/06 1614 77 129/78 11/06 1527 97.4 A: Chart, progress notes, labs, vital signs and medication list reviewed. Vital signs within normal limits. No new lab results today. Reviewed pt's progress w/ nursing staff who described the patient as somatic, paranoid, and had been inappropriate with female staff over the weekend. Met with patient this afternoon. Presented oriented x 3. Easily engaged in conversation. Visible in milieu and on the periphery of milieu groups. Mood "pretty good, can't complain." Affect blunted. Eye contact appropriate. Speech normal in rate, tone and volume. Described having an "ok" weekend. Stated he spoke to his mother this weekend via phone. Continued to report that he has no interest in returning home to his parents as they will only allow him to return if he is on a RIOS AP medication. Patient declined switching to RIOS, would not elaborate on a reason why. Stated he is agreeable to having a VNS for daily medication administration. Now, showing interest in housing at the [facility] in [place], or surrounding shelters. Vaguely described having a dysfunctional relationship with his father and this being a reason why he is refusing to return home. Denied racing thoughts. Denied pasive/active suicidal ideation, plans, intent. Denied homicidal ideation, auditory and visual hallucinations. No evidence of rah paranoia or delusions. Thought process linear, goal directed. Insight/judgement limited. Patient tolerating medication well, denied untoward effects. Not agreeable to further dose titration of Abilify. Encouraged to use Abilify prns for racing thoughts/paranoia/mood lability. Pt c/o ankle pain. Reviewed again w/ patient unremarkable results from previously taken b/l ankle xrays. Reassurance provided. Encouraged ice application, Ibuprofen + Tylenol prn and continued monitoring for now. P: -cont. monitoring on unit for safety/mood/psychosis. -cont. current med regimen. -arrange family meeting/housing/dispo. -ice, Ibuprofen/Tylenol prns for ankle pain. If pain worsens will request HOD consult.
[2016-11-07 15:08] VITALS: BP 125/64
--- NOTE | 2016-11-07 16:59 | SOCIAL WORKER PROG NOTE PSYCH ---
Social Work Progress Note Progress Note This SW attempted to reach client's insurance, C for a concurrent review, and spoke with Lukasz Lal stated that there was not an available child care centre director at the time to take the clinical information and a request has been sent for them to contact this SW. This Sw provided a call back number and was informed that it could be a "72 hour turn around time."
--- NOTE | 2016-11-07 19:11 | SOCIAL WORKER PROG NOTE PSYCH ---
Social Work Progress Note Progress Note Clinical information entered in [facility] for ongoing inpatient stay.
--- NOTE | 2016-11-07 19:26 | SOCIAL WORKER PROG NOTE PSYCH ---
Social Work Progress Note Progress Note 11/07/16, 10:30am: This Sw returned call from pt's parents to schedule a family meeting. Pt's parents were informed that the MANAGER BUSINESS PROCESS could not guarantee attendance at today's meeting. They were offered to continue with the meeting or reschedule for the following day. They opted to reschedule and the meeting was scheduled for 11/08/16 at 10:30am. 6:05pm: This Sw met with patient. Discussed family meeting and how he would like utilize the time. He identify wanting to work on improved communication including expectations that his parents have regarding returning home. Regarding discharge plans, pt stated that he was willing to attend IOP. Pt stated that he has been attending groups and finding them interesting.
[2016-11-07 19:52] VITALS: BP 146/92
[2016-11-08 07:34] VITALS: BP 117/83
--- NOTE | 2016-11-08 11:34 | SOCIAL WORKER PROG NOTE PSYCH ---
Social Work Progress Note Progress Note Adan Voss APRN was scheduled to attend today's meeting, however, she was not in the office today. Pt was informed of this and requested to continue with the meeting as scheduled. Pt's parents were informed that AnoopSahara Shanika would not be able to attend the meeting. They were upset, but will to attend the meeting as well. 10:30am: This Sw met with pt and pt's parents. Pt and parents discussed expectations regarding treatment. Parents described the pt "at his best" when he is employed, happy and artistic (in both art and music). They identified treatment and medication compliance as priorities for him to return/stay home. Pt described being at his best as when he is "feeling an inward and outward calm." He expressed interest in improving communication with his parents. Anticipated discharge plans involve IOP (including medication). Pt stated that he was willing to attend IOP/treatment as scheduled/recommended and take medications as prescribed. Pt's parents inquired about injectable medications to ensure medication compliance. Pt stated that the would be willing to utilize this if prescribed. This inquiry and pt's response will be relayed to his prescriber. Pt's father inquired about other services, such as case management, as well as obtaining guardianship over the pt's medications as he had done previously (2013), but discontinued it due to the pt "getting better." This Sw will follow up regarding case management services in the community and discuss further with the pt. Tw will also look into further information on guardianship. Pt's parents inquired about an aniticiapted discharge date. Sw will follow up and contact parents. Another family meeting will be scheduled to include Adan oVss APRN.
[2016-11-08 12:21] VITALS: BP 133/73
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
--- NOTE | 2016-11-08 15:46 | SOCIAL WORKER PROG NOTE PSYCH ---
Social Work Progress Note Progress Note SW received vm from [facility] regarding the concurrent review. Sw attempted to return the call at [phone], ext [phone] and left a vm with call back number. Recording on message instructed not to leave clinical information on the vm.
[2016-11-08 15:59] VITALS: BP 133/94
--- NOTE | 2016-11-08 16:09 | SOCIAL WORKER PROG NOTE PSYCH ---
Social Work Progress Note Progress Note Renetta spoke with Elba at [facility] [place] ([phone]). She authorized one more inpt unit with a review on 11/09/16. Auth number: [id number]
[2016-11-08 19:53] VITALS: BP 141/92
--- NOTE | 2016-11-09 08:26 | CP SOUTH PROGRESS NOTE PSYCH ---
Psych (Inpt) Progress Note Progress Note Include the following elements, when applicable: Involvement in the active treatment of the patient with behavioral observations of the patient and the patient's response to the treatment. Review of the ongoing treatment process in the context of the treatment plan. Indication of how multi-disciplinary staff members are carrying out the treatment plan. Plans for future interventions and recommendations for revision of the treatment plan. Liaison with other physicians/providers. Progress Note: I discussed this patient's progress to date, current mental status, treatment process in the context of the treatment plan, and discharge planning with staff/ team in the daily morning inpatient team meeting. I also met with the patient myself in individual session. Current Medications Sig/Fran Start time Last Medication Dose Route Stop Time Status Admin Acetaminophen 650 MG .STK-MED ONE 11/08 2159 DC PO 11/08 2200 Acetaminophen 650 MG .STK-MED ONE 11/08 0829 DC PO 11/08 0830 Acetaminophen 650 MG Q4P PRN 11/02 1500 AC 11/08 PO 2158 Al Hydroxide/Mg 30 ML Q4-6 PRN PRN 11/02 1500 AC Hydroxide PO Aripiprazole 15 MG QPM 11/04 2200 AC 11/08 PO 2154 Aripiprazole 2 MG Q4 HRS NEEDED PRN 11/04 0830 AC PO Bacitracin 1 AMBRE BID 11/08 1441 AC 11/08 EXT 2156 Ibuprofen 600 MG Q6-PRN PRN 11/07 1215 AC PO Lorazepam 1 MG Q6-PRN PRN 11/02 1500 AC 11/09 PO 0118 Magnesium Hydroxide 30 ML AT BEDTIME PRN 11/02 1500 AC PO Multi-Ingred Cream/ 1 AMBER Q2 HRS NEEDED PRN 11/05 2230 AC 11/09 Lotion/Oil/Oint EXT 0331 Nicotine 21 MG 0800 11/05 0800 AC 11/08 TOP 0828 Nicotine 2 MG Q2 HRS NEEDED PRN 11/04 0800 AC 11/06 PO 2134 Vital Signs Date Time Temp Pulse Resp B/P B/P Pulse O2 O2 Flow FiO2 Mean Ox Delivery Rate 11/08 1952 97.4 92 141/92 11/08 1559 94 133/94 11/08 1221 83 133/73 A: Chart, progress notes, labs, vital signs and medication list reviewed. Vital signs within normal limits. No new lab results today. Met with patient this morning. He presented calm and cooperative. Normal psychomotor activity. Eye contact appropriate. Affect blunted. Mood "fine." Somewhat guarded. Stated family meeting yesterday went "ok," though expressed having difficulty communicating with his father. Stated his father is "impossible" to talk to because he becomes frustrated to the point where he disconnects/stops talking. Also mentioned that his father is upset with the care he is receiving here. When asked what led him to changing his mind about returning home to parents, patient stated "my dad told me he'd cut me off financially." Patient still expressed some desire to live elsewhere, but seems to value the financial help he receives from his parents. Spoke to patient further about option of Abilify RIOS. Patient agreed to switch during yesterday's family meeting. Today, with me, he also agreed to this option. Rated anxiety a 0/10 (10 being the worst) and depression a 0/10 (10 being the worst). Denied active and passive suicidal ideation, plans and intent. Denied homicidal ideation, auditory and visual hallucinations. Denied paranoid thoughts. No evidence of delusional thought content. Stated sleep and appetite are "fine." Reported tolerating medications well and denied untoward medication effects. Patient agreeable to starting Abilify Maintenna. Later today, I met again with the patient together with Dr. Lange. Patient was in favor of having a family meeting with his parents, Dr. Lange, myself and Jesika Lundy LCSW, tomorrow (time TBA, awaiting confirmation from pt's parents). The patient expressed to both me and Dr. Lange that he had some reservations about signing a release for his parents' associate attorney without first discussing conservatorship in their presence and in the presence of his tx team. Informed patient that we would have that discussion with his parents tomorrow during the meeting. Patient was in agreement with plan. P: -cont. monitoring on unit for safety, mood, psychosis. -switch to Abilify Maintenna tomorrow, 10AM. -arrange family meeting to discuss discharge planning. Magnesium Hydroxide 30 ML AT BEDTIME PRN 11/02 1500 AC PO Multi-Ingred Cream/ 1 AMBER Q2 HRS NEEDED PRN 11/05 2230 AC 11/09 Lotion/Oil/Oint EXT 0331 Nicotine 21 MG 0811/05 0800 AC 11/08 TOP 0828 Nicotine 2 MG Q2 HRS NEEDED PRN 11/04 0800 AC 11/06 PO 2134 Vital Signs Date Time Temp Pulse Resp B/P B/P Pulse O2 O2 Flow FiO2 Mean Ox Delivery Rate 11/08 1952 97.4 92 141/92 11/08 1559 94 133/94 11/08 1221 83 133/73 A: Chart, progress notes, labs, vital signs and medication list reviewed. Vital signs within normal limits. No new lab results today. Met with patient this morning. He presented calm and cooperative. Normal psychomotor activity. Eye contact appropriate. Affect blunted. Mood "fine." Somewhat guarded. Stated family meeting yesterday went "ok," though expressed having difficulty communicating with his father. Stated his father is "impossible" to talk to because he becomes frustrated to the point where he disconnects/stops talking. Also mentioned that his father is upset with the care he is receiving here. When asked what led him to changing his mind about returning home to parents, patient stated "my dad told me he'd cut me off financially." Patient still expressed some desire to live elsewhere, but seems to value the financial help he receives from his parents. Spoke to patient further about option of Abilify RIOS. Patient agreed to switch during yesterday's family meeting. Today, with me, he also agreed to this option. Rated anxiety a 0/10 (10 being the worst) and depression a 0/10 (10 being the worst). Denied active and passive suicidal ideation, plans and intent. Denied homicidal ideation, auditory and visual hallucinations. Denied paranoid thoughts. No evidence of delusional thought content. Stated sleep and appetite are "fine." Reported tolerating medications well and denied untoward medication effects. Patient agreeable to starting Abilify Maintenna. P: -cont. monitoring on unit for safety, mood, psychosis. -switch to Abilify Maintenna tomorrow, 10AM. -arrange family meeting to discuss discharge planning.
[2016-11-09 08:30] VITALS: BP 123/67
--- NOTE | 2016-11-09 11:17 | SOCIAL WORKER PROG NOTE PSYCH ---
See Addendum Social Work Progress Note Progress Note Phoned Jesika [facility]/Pending [facility]#[phone], [id number] INVOICE MACHINE OPERATOR. Left voicemail indicating that we have been trying to provide concurrent since 11/07. Attempted to reach reviewer 2x this morning. Spoke with another reviewer who stated it is noted that several attempts have been made to reach Jesika ( [place]/[facility]) since 11/07/16.
[2016-11-09 12:12] VITALS: BP 135/81
--- NOTE | 2016-11-09 18:29 | SOCIAL WORKER PROG NOTE PSYCH ---
Social Work Progress Note Progress Note Sw left requesting continued inpt stay until Monday to observe response to Abilify long acting injectable which patient is scheduled to begin tomorrow (). left for Elba at [phone] who had requested that this Sw call today to provide name of the injectable that will be administered.
--- NOTE | 2016-11-09 18:49 | SOCIAL WORKER PROG NOTE PSYCH ---
Social Work Progress Note Progress Note Clinical information provided to [facility] requesting additional inpatient authorization.
--- NOTE | 2016-11-09 18:56 | SOCIAL WORKER PROG NOTE PSYCH ---
Social Work Progress Note Progress Note Sw review case with team during team meeting including Monday's family meeting and brief discussion with father Monday, at which time a discharge date had not been identified. 11:20am Adan Voss and this Sw contacted pt's parents by phone. They discussed concerns about treatment and medication compliance as well as interest in conservatorship (see Adan Voss's note for further information). 3:51pm This Sw met with patient. He stated that he spoke with Adan Voss earlier today and is willing to begin Abilify Maintenna (monthly injection) and will receive his first dose tomorrow. He denied any other concerns. In the evening, this Sw met briefly with Adan Voss and Dr. Lange regarding treatment plans. It was confirmed that pt is scheduled to receive the first injection tomorrow (11/10/16) and further inpt stay will be requested to monitor his response to this medication.
--- NOTE | 2016-11-09 19:13 | IP INCIDENTAL NOTE PSYCH ---
Incidental Note Notation: This check writer and Jesika Lundy LCSW, spoke to the patient's mother and father on speaker phone this morning. The patient's parents reported being unhappy with the present care the patient is receiving; made reports about nursing staff being unprofessional as well as SPRING FITTER, as they felt they did not receive that their needs and questions were not addressed in a timely fashion followin the end of yesterday's family meeting. I asked if I could answer any medication questions they cared to discuss. They asked if Abilify was the best medication to manage the patient's current symptoms. I informed the patient's parents that Abilify is indicated for the treatment of psychotic disorders and is a medication that the patient feels most comfortable with given its low side effect profile in comparison to other antipsychotics. Informed patient's parents that the patient was not agreeable to switching to other antipsychotics but is agreeable to switching to Abilify RIOS, which will start tomorrow. His parents additionally indicated that they are working with an relish maker and would like to have the hospital assist with getting the patient conserved. I informed the patient's parents that they have the right to start this process with probate court. They strongly insisted that the hospital be part of this process and I speak to their relish maker, Griffin Ross. They provided me with the telephone # for this relish maker (#[phone]). I informed them that in order to speak to this relish maker the patient would have to sign a release of information. I later informed the patient of my discussion with his parents. I shared that they expressed wanting to him conserved. The patient seemed confused by what this meant and declined to sign a SHEKHAR without further speaking to his parents and tx team, together. I informed the patient that I had further contact his mother by phone at approximately 4:30PM to request a second family meeting for tomorrow, that would include unit chief of psychiatry, Dr. Lange. I informed them that we are availabile to meet between 10:30AM - 1PM. The patient's mother did not want to make a decision on the phone with without first discussing this with her . I gave her the ext. [phone] of Jesika Lundy LCSW, to contact/or leave a VM off hours regarding what time would be best for them. Patient's parents verbalized understanding. I was later notified by Almita Hastings, CPS nursing home assistant administrator, that she spoke to the patient's parents, who reported several complaints about CPS staff. She reported that she referred his parents to the hospital's patient advocate.
[2016-11-09 19:37] VITALS: BP 121/70
[2016-11-10 08:00] VITALS: BP 95/71
[2016-11-10 12:02] VITALS: BP 136/61
--- NOTE | 2016-11-10 12:05 | CP SOUTH PROGRESS NOTE PSYCH ---
Psych (Inpt) Progress Note Progress Note Include the following elements, when applicable: Involvement in the active treatment of the patient with behavioral observations of the patient and the patient's response to the treatment. Review of the ongoing treatment process in the context of the treatment plan. Indication of how multi-disciplinary staff members are carrying out the treatment plan. Plans for future interventions and recommendations for revision of the treatment plan. Liaison with other physicians/providers. Progress Note: I discussed this patient's progress to date, current mental status, treatment process in the context of the treatment plan, and discharge planning with staff/ team in the daily morning inpatient team meeting. I also met with the patient myself in individual session. Current Medications Sig/Fran Start time Last Medication Dose Route Stop Time Status Admin Acetaminophen 650 MG .STK-MED ONE 11/09 210 DC PO 11/09 210 Acetaminophen 650 MG Q4P PRN 11/02 1500 AC 11/10 PO 0811 Al Hydroxide/Mg 30 ML Q4-6 PRN PRN 11/02 1500 AC Hydroxide PO Aripiprazole 400 MG 1000 11/10 1000 DC IM 11/10 1001 Aripiprazole 15 MG QPM 11/04 2200 AC 11/09 PO 2154 Aripiprazole 2 MG Q4 HRS NEEDED PRN 11/04 0830 DC PO Bacitracin 1 AMBER BID 11/08 1441 AC 11/10 EXT 0812 Diphenhydramine HCl 25 MG Q6P PRN 11/09 1715 AC 11/09 PO 2155 Ibuprofen 600 MG Q6-PRN PRN 11/07 1215 AC PO Lorazepam 1 MG Q6-PRN PRN 11/09 1930 AC PO Lorazepam 1 MG Q6-PRN PRN 11/02 1500 DC 11/09 PO 0118 Magnesium Hydroxide 30 ML AT BEDTIME PRN 11/02 1500 AC PO Multi-Ingred Cream/ 1 AMBER Q2 HRS NEEDED PRN 11/05 2230 AC 11/09 Lotion/Oil/Oint EXT 1254 Nicotine 21 MG 0800 11/05 0800 AC 11/08 TOP 0828 Nicotine 2 MG Q2 HRS NEEDED PRN 11/04 0800 AC 11/06 PO 2134 Prednisone 40 MG 1700 11/09 1730 AC 11/09 PO 11/13 1701 1742 Propranolol HCl 10 MG Q8P PRN 11/09 1930 AC PO Vital Signs Date Time Temp Pulse Resp B/P B/P Pulse O2 O2 Flow FiO2 Mean Ox Delivery Rate 11/10 1202 75 136/61 11/10 0800 96.8 66 95/71 11/09 1937 98.7 83 121/70 A: Chart, progress notes, labs, vital signs and medication list reviewed. Vital signs within normal limits. No new lab results today. Met with the patient prior to scheduled 11AM family meeting, together with Dr. Lange, Jesika Lundy LCSW and Ricardo Salguero, medical student. The patient informed us that he is ambivalent this morning about taking Abilify Maintena after further consideration; states he concluded that this is the desire of his father and not his own. States that if he is not allowed back to his parents home due to this, he would pursue an alternative option such as a mcc or possible placement at the [facility], [place]. Mood slightly more irritable than in prior encounters, but also seemed related to fear that his father would cut him off financially if he didn't comply with his rules. Affect constricted. Speech normal in rate, tone and volume. Mildly guarded, but able to make his needs known. Denies suicidal and homicidal ideation, auditory and visual hallucinations, and paranoid ideation. Thought process linear. Cognition grossly intact. Maintained good behavioral and physical control. A family meeting was held with the patient, his parents, patient advocate Amanda Glass, Dr. Lange, Jesika Lundy LCSW, Ricardo Salguero, medical student and I at 11AM. The patient's father, Brian, was accepting of the meeting. He expressed several concerns regarding the patient, his hx of medication nonadherence and the resulting symptoms. Brian acknowledged his own fear of how the patient would be able to manage his own mental illness in the event he comes off of his medication without being conserved. The patient's father set the boundary that the patient is not allowed to return home unless he takes a long-acting injectable medication. The patient heard this information, though diagreed. The patient's mother, Sigrid, was also in agreement with the patient starting a RIOS to reduce future medication nonadhrence. Much of the meeting was used to provide emotional support to the patient's parents d/t their reasonable concerns over the patient's past behavior , and also their frustration with his hx of tx non-adherence. The patient was quiet through the majority of the meeting and quite nonreactive to the concerns brought up by his parents. The patient's parents were agreeable to reconvene for another family meeting on Monday, 11/14 at 3:30PM to discuss the patient's tx progress and d/c planning. The patient's family were also informed that the patient refused to sign a SHEKHAR for their family workers compensation defense attorney regarding conservatorship. Patient's parents verbalized understanding of information. P: -continue current med regimen. Roland Brown D/C'ed, as patient refused. -continue monitoring on unit for safety, mood and psychosis. -family meeting on 11/14 at 3:30 PM.
[2016-11-10 16:21] VITALS: BP 130/51
--- NOTE | 2016-11-10 19:03 | SOCIAL WORKER PROG NOTE PSYCH ---
Social Work Progress Note Progress Note 10:40am Adan Cantu, LEILANI, Marlene Salguero, medical student and this Sw met with pt. He discussed not wanting to follow through with the injectable Abilify as planned. Pt acknowledged how this would impact his option to live with his parents and discussed other options, particularly living in a fpc until he is able to afford the [facility] housing. He stated that he expects to receive income on 11/19/16 which would contribute to the [facility] cost. 11am Adan Cantu, Marlene DUKE, medical student and this Sw met with pt and his parents.
--- NOTE | 2016-11-10 19:37 | SOCIAL WORKER PROG NOTE PSYCH ---
Social Work Progress Note Progress Note Tw received vm from Mrs. Roque. Message was unclear. This mortgage underwriter returned the call and spoke with Mr. Roque who stated "we're good" and that they can wait until Monday. He did not need any further information at this time.
[2016-11-10 19:56] VITALS: BP 131/74
--- NOTE | 2016-11-11 11:20 | SOCIAL WORKER PROG NOTE PSYCH ---
Social Work Progress Note Progress Note Sw spoke with Angelika alexander [place] regarding concurrent review. Clinical was provided and an authorization was given as follows: - 3 days, 11/11/16-11/13/16 - review on 11/14 - auth number [id number]
[2016-11-11 12:25] VITALS: BP 133/70
--- NOTE | 2016-11-11 14:24 | SOCIAL WORKER PROG NOTE PSYCH ---
Social Work Progress Note Progress Note Patient seen individually for support and planning. we talked about plan, and he has come to conclusion that moving in with parents for a while, rather than going to a halfway makes more sense to him at this point, financially and logistically. He is afraid that father is controlling and might file for guardianship. Sanchezld patient that if he makes good decisions he would be fine, as he has now agreed to take the medicine I.M. Patients mood is good and he is looking forward to family meeting and D/c on Monday. Patient wanted Norma to know that he is agreeing to take the Abilify and stay with parents(in basement), as it would give him a chance to save, and is certainly better than a halfway.
--- NOTE | 2016-11-11 14:43 | CP SOUTH PROGRESS NOTE PSYCH ---
Psych (Inpt) Progress Note Progress Note Include the following elements, when applicable: Involvement in the active treatment of the patient with behavioral observations of the patient and the patient's response to the treatment. Review of the ongoing treatment process in the context of the treatment plan. Indication of how multi-disciplinary staff members are carrying out the treatment plan. Plans for future interventions and recommendations for revision of the treatment plan. Liaison with other physicians/providers. Progress Note: I discussed this patient's progress to date, current mental status, treatment process in the context of the treatment plan, and discharge planning with staff/ team in the daily morning inpatient team meeting. I also met with the patient myself in individual session. Current Medications Sig/Fran Start time Last Medication Dose Route Stop Time Status Admin Acetaminophen 650 MG .STK-MED ONE 11/10 1710 DC PO 11/10 1711 Acetaminophen 650 MG Q4P PRN 11/02 1500 AC 11/10 PO 1709 Al Hydroxide/Mg 30 ML Q4-6 PRN PRN 11/02 1500 AC Hydroxide PO Aripiprazole 400 MG Q720H 11/12 1000 AC IM Aripiprazole 400 MG Q720H 11/11 1500 CAN IM Aripiprazole 15 MG QPM 11/04 2200 AC 11/10 PO 2121 Bacitracin 1 AMBER BID 11/08 1441 AC 11/11 EXT 0910 Clonidine 0.1 MG Q8P PRN 11/11 1530 UNVr PO Diphenhydramine HCl 25 MG Q6P PRN 11/09 1715 AC 11/10 PO 2121 Ibuprofen 600 MG Q6-PRN PRN 11/07 1215 AC PO Lorazepam 1 MG Q6-PRN PRN 11/09 1930 AC PO Magnesium Hydroxide 30 ML AT BEDTIME PRN 11/02 1500 AC PO Multi-Ingred Cream/ 1 AMBER Q2 HRS NEEDED PRN 11/05 2230 AC 11/09 Lotion/Oil/Oint EXT 1254 Nicotine 21 MG 0800 11/05 0800 AC 11/11 TOP 0909 Nicotine 2 MG Q2 HRS NEEDED PRN 11/04 0800 AC 11/10 PO 2121 Prednisone 40 MG 1700 11/09 1730 AC 11/10 PO 11/13 170 1709 Propranolol HCl 10 MG Q8P PRN 11/09 1930 DC PO Vital Signs Date Time Temp Pulse Resp B/P B/P Pulse O2 O2 Flow FiO2 Mean Ox Delivery Rate 11/11 1225 81 133/70 11/11 1955 97.3 72 131/74 11/10 1621 82 130/51 A: Chart, progress notes, labs, vital signs and medication list reviewed. Vital signs within normal limits. No new lab results today. Met with patient individually in room. He stated his poison micaela is improving since taking oral steroid and prn benadryl. Stated he felt family meeting yesterday went well overall. Stated his father appeared calmer and more at ease with him being here. Indicated that he took away that his parents care a lot about him and want to see him stay on the right track. Also noted that he is now agreeable to taking Abilify Maintena RIOS and that this is his own personal decision. I asked what led to him changing his mind. He stated he thought more about the financial obstacles he would face if he went to a half-way, rather than home. Stated he is willing to stay at his parents' house for the next few months , and that taking a RIOS is a condition to him returning home. He insisted on remaining on Abilify given low SE profile and had no interest in trialing an alternative antipsychotic. Reviewed the SEs of Abilify Maintena including Akathisia. Patient verbalized understanding of SEs. Given hx of asthma, will not start prn Propranolol for akathisia. Patient opposed to trialing prn cogentin and gabapentin. Instead will order prn Clonidine for potential akathisia. He is agreeable to receiving RIOS via a visiting nurse once discharged. Patient denied passive and active suicidal ideation, plans and intent. Denied homicidal ideation, auditory and visual hallucinations, and paranoid ideation. No evidence of delusional thought content. Normal psychomotor activity. Calm and cooperative. Speech normal in rate, tone and volume. Eye contact appropriate. Mood "fine, but a little antsy." Reported he typically walks 3-4 hours/day outside and is finding it difficult being confined to unit. Reported sleeping approx. 5 hours last night, which he described as his baseline outside of the hospital; reported feeling rested. Energy level "fine." Reported appetite is good. Offered no complaints. Reported tolerating medications well, denied untoward effects. P: -Start Abilify Maintena 400mg IM tomorrow 10AM. -Cont. Abilify 15mg QPM x 14 days, then stop. -Start Clonidine 0.1mg Q8H prn for restlessness/anxiety/akathisia. -Family meeting at 3:30PM Monday and possible discharge after w/ IOP and VNS f/ u.
[2016-11-11 15:54] VITALS: BP 141/60
--- NOTE | 2016-11-11 16:45 | SOCIAL WORKER PROG NOTE PSYCH ---
Social Work Progress Note Progress Note Jair Authorization 11/09-11/03 Review date: 11/14 Elba [phone]
[2016-11-11 19:40] VITALS: BP 126/69
[2016-11-12 07:37] VITALS: BP 122/71
[2016-11-12 11:57] VITALS: BP 127/73
--- NOTE | 2016-11-12 14:44 | CP SOUTH PROGRESS NOTE PSYCH ---
Psych (Inpt) Progress Note Progress Note Include the following elements, when applicable: Involvement in the active treatment of the patient with behavioral observations of the patient and the patient's response to the treatment. Review of the ongoing treatment process in the context of the treatment plan. Indication of how multi-disciplinary staff members are carrying out the treatment plan. Plans for future interventions and recommendations for revision of the treatment plan. Liaison with other physicians/providers. Progress Note: Stated that he was doing well, that he had no complaints. He stated that he came here b/c he locked his keys in his car and lost his phone and walked from [place] to [place], which he stated is not far for me, I walk three or four hours normally each day. He had little to no insight regarding his active symptoms of disorganization and history of psychiatric treatment. MSE: young man, no psychomotor changes noted, no tics or tremors noted. Pleasant , somewhat oddly related. His speech is normal. His affect is constricted, his mood is neutral. He is somewhat withdrawn. There is no evidence of internal preoccupation. He is distracted at times. He is odd, somewhat disorganized but no overt thought content abnormalities. Denied active thoughts of harm to self/ others. Insight and judgment are adequate. Plan: agreed to take the abilify dec IM today, with some education.
[2016-11-12 15:33] VITALS: BP 128/63
[2016-11-13 07:55] VITALS: BP 122/66
--- NOTE | 2016-11-13 11:45 | CP SOUTH PROGRESS NOTE PSYCH ---
Psych (Inpt) Progress Note Progress Note Include the following elements, when applicable: Involvement in the active treatment of the patient with behavioral observations of the patient and the patient's response to the treatment. Review of the ongoing treatment process in the context of the treatment plan. Indication of how multi-disciplinary staff members are carrying out the treatment plan. Plans for future interventions and recommendations for revision of the treatment plan. Liaison with other physicians/providers. Progress Note: Wants to take adderall to manage his sedation, stating that he has taken it in the past and it has helped to calm him down, improve his anxiety and keep him from being groggy I explained to him that it was not recommended due to his hx of psychosis, and he was receptive to education, stating that he was aware of this but suggested that in his individual circumstances it would be useful. I continued to explain to him that it was not currently indicated, and could be re -evaluated once he was further stabilized. He c/o sedation as soon as I took the shot and stated that he has difficulty focusing, but also has akathisia. We discussed taking his clonidine more regularly, and taking his PRN ativan, which he agreed to. He wanted to lower his medication, stating that he did not want to be this sedated all month, but agreed to continue taking it for a few days. More focused and less odd today. MSE: young man, no psychomotor changes noted, no tics or tremors noted. Appropriate today. His speech is normal. His affect is constricted, his mood is neutral. He is withdrawn. He complains of sedation but appears alert and awake. He also c/o akathisia, does not appear restless but may be internal. There is no evidence of internal preoccupation. No overt thought content abnormalities. No evidence of thoughts of harm to self/others. Insight and judgment are adequate. Plan: discussed taking his PRN clonidine for today and tmr; see if it helps w/ his restlessness; and also discussed giving the maintenna a few days to get into his system before stopping his abilify oral, educating him that sedation should improve. A stimulant is not indicated given his hx of psychosis and not overtly sedated now.
[2016-11-13 12:27] VITALS: BP 90/60
[2016-11-13 15:58] VITALS: BP 115/69
[2016-11-13 20:12] VITALS: BP 130/56
[2016-11-14 07:37] VITALS: BP 127/56
[2016-11-14 12:33] VITALS: BP 129/74
--- NOTE | 2016-11-14 13:12 | CP SOUTH PROGRESS NOTE PSYCH ---
Psych (Inpt) Progress Note Progress Note Include the following elements, when applicable: Involvement in the active treatment of the patient with behavioral observations of the patient and the patient's response to the treatment. Review of the ongoing treatment process in the context of the treatment plan. Indication of how multi-disciplinary staff members are carrying out the treatment plan. Plans for future interventions and recommendations for revision of the treatment plan. Liaison with other physicians/providers. Progress Note: I discussed this patient's progress to date, current mental status, treatment process in the context of the treatment plan, and discharge planning with staff/ team in the daily morning inpatient team meeting. I also met with the patient myself in individual session. Current Medications Sig/Fran Start time Last Medication Dose Route Stop Time Status Admin Acetaminophen 650 MG Q4P PRN 11/02 1500 AC 11/14 PO 1236 Al Hydroxide/Mg 30 ML Q4-6 PRN PRN 11/02 1500 AC Hydroxide PO Aripiprazole 7 MG QPM 11/14 2200 CAN PO Aripiprazole 5 MG QPM 11/14 2200 AC PO Aripiprazole 2 MG QPM 11/14 2200 AC PO Aripiprazole 400 MG Q720H 11/12 1000 AC 11/12 IM 1203 Aripiprazole 15 MG QPM 11/04 2200 DC 11/13 PO 2132 Bacitracin 1 AMBER BID 11/08 1441 AC 11/13 EXT 0924 Clonazepam 0.5 MG Q4 HRS NEEDED PRN 11/14 1200 AC 11/14 PO 11/21 1159 1236 Clonidine 0.1 MG Q6-PRN PRN 11/13 1115 AC 11/13 PO 1113 Diphenhydramine HCl 25 MG Q6P PRN 11/09 1715 AC 11/10 PO 2121 Ibuprofen 600 MG .STK-MED ONE 11/13 1602 DC PO 11/13 1603 Ibuprofen 600 MG Q6-PRN PRN 11/07 1215 AC 11/13 PO 1602 Lorazepam 0.5 MG Q6-PRN PRN 11/14 0930 DC PO 11/16 1929 Lorazepam 1 MG Q6-PRN PRN 11/09 1930 DC 11/13 PO 0827 Magnesium Hydroxide 30 ML AT BEDTIME PRN 11/02 1500 AC PO Multi-Ingred Cream/ 1 AMBER Q2 HRS NEEDED PRN 11/05 2230 AC 11/09 Lotion/Oil/Oint EXT 1254 Nicotine 21 MG 0811/05 0800 AC 11/14 TOP 0741 Nicotine 2 MG Q2 HRS NEEDED PRN 11/04 0800 AC 11/14 PO 1236 Prednisone 40 MG 1700 11/09 1730 DC 11/13 PO 11/13 1701 1749 Vital Signs Date Time Temp Pulse Resp B/P B/P Pulse O2 O2 Flow FiO2 Mean Ox Delivery Rate 11/14 1233 95 129/74 11/14 0737 95.6 52 127/56 11/14 2011 96.6 84 130/56 11/13 1558 92 115/69 A: Chart, progress notes, labs, vital signs and medication list reviewed. Vital signs within normal limits. No new lab results today. Reviewed patient's progress to date with nursing staff; described the patient as somatic, pacing on unit, w/ increased anxiety/restlessness since Abilify Maintena injection on 11/12/16. Met with the patient this afternoon together with Jesika Lundy LCSW. Pt states that since receiving Abilify Maintena injection his sleep has been interupted, feels more fatigued during the day (napping frequently), describes "akathisia," increased restlessness/anxiety, pacing on unit. + psychomotor agitation, observed fidgety in seat. Declines trials of Gabapentin and Cogentin for akathisia. States that prn Clonidine and Ativan have not been helpful. Informed patient that I will start him on a brief trail of prn Klonopin 0.5mg (up to 3 doses/24 hours) for akathisia/anxiety and discontinue prn Ativan. Also, encouraged patient to take prn Clonidine more regularly. Agreed to decrease scheduled po Abilify from 15mg QPM to 5mg QPM in an attempt to control SE of akathisia. Patient otherwise describes his mood as "okay." C/o poor focus/ imparied concentration, however partakes in interview and answers questions appropriately. Denies acute depressive symptoms, suicidal and homicidal ideation. Denies auditory and visual hallucinations. Does not appear to be responding internally. Remains oddly-related. No evidence of overt paranoia or delusional thought content. Hopeful that family meeting with his parents this evening will go well. Patient agreeable to above medication changes. Will continue to monitor patient' s response and monitor for akathisia. Met again with the patient, his parents, Jesika Lundy LCSW for a family meeting. Discussed patient's progress to date, medication regimen and level of safety. Patient's parents expressed that there only concern regarding the patient is future medication nonadherence. Reviewed with parents that patient started Abilify Maintena while inpatient and is agreeable to continue receiving with assistance from [facility]. Also agreeable to attending IOP, and signing releases so all treaters (including [facility]) can have contact with family. Patient's father remained skeptical about whether the patient will be adherent with tx post- discharge. Father made the patient aware that any deviation from outpatient tx going forward (stopping medications or IOP) will result in the patient being asked to leave their home. The patient verbalized understanding of his parents rules/expectations and is agreeable to follow them. The patient was in favor of discharge plan, as were his parents, despite some fear that the patient may be non-adherent to tx in the future. I spoke to Iman Davis, Director of IOP today. Permission obtained for patient to enter Dual IOP track on brief trial of Klonopin to manage recent onset of Akathisia likely caused by Abilify Maintena. P: -D/c tomorrow w/ f/u to IOP intake at 12:45PM and [facility]. -Family meeting this evening w/ pt and parents. -Decrease Abilify from 15mg QPM to 5mg QPM d/t akathisia. -D/c prn Ativan. Start Klonopin 0.5mg Q4H prn for anxiety/restlessness (NTE 3 doses/24 hours). -Cont. prn Clonidine for akathisia.
--- NOTE | 2016-11-14 14:21 | SOCIAL WORKER PROG NOTE PSYCH ---
Social Work Progress Note Progress Note 12:55pm Adan Voss and this Sw met with patient. He reported Akethsia as a side effect of the Abilify injection. He stated that he has been pacing around the unit due to difficulty staying still. He also reported an increase in feeling tired and has been napping throughout the day. He reported his mood as "OK. I'm adjusting to the medication." Discharge plans were discussed. He is in agreement with attending IOP and an IOP intake will be scheduled. [facility] will also be contacted to schedule their services with the pt. Pt and Adan Voss discussed adjusting his medications to manage the Akethesia and identified an anticipated discharge date of 11/15/16. 2:00pm This underwriter and pt called [facility] (SHEKHAR signed by pt) and spoke with Winter to register for visiting nurse services for pt. Winter stated that she will fax orders to to be signed by the doctor. This underwriter contacted IOP and scheduled an intake assessment for 11/15/16 at 12:45pm.
--- NOTE | 2016-11-14 15:07 | SOCIAL WORKER PROG NOTE PSYCH ---
Social Work Progress Note Progress Note This Sw spoke with Elba Ross ([place] - [phone]) by phone to provide clinical for continued inpt stay. 1 additional inpt day authorized with review tomorrow. Anticipated d/c date of 11/15/16.
[2016-11-14 16:38] VITALS: BP 118/72
--- NOTE | 2016-11-14 18:14 | SOCIAL WORKER PROG NOTE PSYCH ---
Social Work Progress Note Progress Note Phoend 2x for Jesika of [facility] x [phone], unable to reach reviewer to do concurrent. DID leave clinical on Jesika/[facility] voicmail re: Akathesia and medication adjustments and need to keep patient an additional day with expected discharge (pending no other issues0 for tomorrow 11/15 directly to [facility]. Also left clinical on family meeting as well. Asked for call back with AUTH.
[2016-11-14 20:05] VITALS: BP 112/72
--- NOTE | 2016-11-15 08:04 | CP SOUTH PROGRESS NOTE PSYCH ---
Psych (Inpt) Progress Note Progress Note Include the following elements, when applicable: Involvement in the active treatment of the patient with behavioral observations of the patient and the patient's response to the treatment. Review of the ongoing treatment process in the context of the treatment plan. Indication of how multi-disciplinary staff members are carrying out the treatment plan. Plans for future interventions and recommendations for revision of the treatment plan. Liaison with other physicians/providers. Progress Note: I discussed this patient's progress to date, current mental status, treatment process in the context of the treatment plan, and discharge planning with staff/ team in the daily morning inpatient team meeting. I also met with the patient myself in individual session. Current Medications Sig/Fran Start time Last Medication Dose Route Stop Time Status Admin Acetaminophen 650 MG .STK-MED ONE 11/14 1237 DC PO 11/14 1238 Acetaminophen 650 MG Q4P PRN 11/02 1500 AC 11/14 PO 1236 Al Hydroxide/Mg 30 ML Q4-6 PRN PRN 11/02 1500 AC Hydroxide PO Aripiprazole 7 MG QPM 11/14 2200 CAN PO Aripiprazole 5 MG QPM 11/14 2200 AC 11/14 PO 2116 Aripiprazole 2 MG QPM 11/14 2200 CAN PO Aripiprazole 2 MG Q4P PRN 11/14 1745 AC PO Aripiprazole 400 MG Q720H 11/12 1000 AC 11/12 IM 1203 Aripiprazole 15 MG QPM 11/04 2200 DC 11/13 PO 2132 Bacitracin 1 AMBER BID 11/08 1441 AC 11/13 EXT 0924 Clonazepam 0.5 MG Q4 HRS NEEDED PRN 11/14 1200 AC 11/14 PO 11/21 1159 2257 Clonidine 0.1 MG Q6-PRN PRN 11/13 1115 AC 11/15 PO 0607 Diphenhydramine HCl 25 MG Q6P PRN 11/09 1715 AC 11/10 PO 2121 Ibuprofen 600 MG .STK-MED ONE 11/14 1842 DC PO 11/14 1843 Ibuprofen 600 MG Q6-PRN PRN 11/07 1215 AC 11/15 PO 0459 Lorazepam 0.5 MG Q6-PRN PRN 11/14 0930 DC PO 11/16 1929 Lorazepam 1 MG Q6-PRN PRN 11/09 1930 DC 11/13 PO 0827 Magnesium Hydroxide 30 ML AT BEDTIME PRN 11/02 1500 AC PO Multi-Ingred Cream/ 1 AMBER Q2 HRS NEEDED PRN 11/05 2230 AC 11/09 Lotion/Oil/Oint EXT 1254 Nicotine 21 MG 0811/05 0800 AC 11/14 TOP 0741 Nicotine 2 MG Q2 HRS NEEDED PRN 11/04 0800 AC 11/15 PO 0607 Vital Signs Date Time Temp Pulse Resp B/P B/P Pulse O2 O2 Flow FiO2 Mean Ox Delivery Rate 11/15 0607 112/72 11/14 2004 98.2 96 112/72 11/14 1638 92 118/72 11/14 1233 95 129/74 A: Chart, progress notes, labs, vital signs and medication list reviewed. Vital signs within normal limits. No new lab results today. Met with the patient this morning at 08:12AM. He stated that he was glad he had the opportunity to communicate with his parents regarding his treatment going forward while being here rather than having to do this on his own once discharged. Stated he felt his father was argumentative/challenging at times; feels he will have to utilize strategies like taking space to cope with his father. He remains agreeable to allow his parents to participate in his outpatient tx. He continues to exhibit akathisia, fidgeting in chair, pacing around the unit. Reported internal restlessness to be somewhat improved with prn Klonopin, stated he was able to sleep better last night. Stated he is unsure if prn clonidine is helpful; he notes feeling sleepy during the day after taking it. Patient oriented x 3. Alert. Made good eye contact. Speech normal in rate, tone and volume. Mood, "fine." Affect calm, constricted. Less psychomotor agitation noted today. Cooperative, pleasant. Offered no complaints. Denied acute depressive symptoms. Denied racing thoughts. Denied suicidal and homicidal ideation. Stated and also believed he will not harm himself or others. Denied auditory and visual hallucinations. No evidence of the patient responding internally, of overt paranoia or delusional thought content. Thought process linear, goal-directed. Patient reported tolerating recent medication adjustments well and is agreeable to continue taking. He reported feeling safe and ready for discharge. P: -D/C today into the care of his mother and to his parents' home. -F/u at [facility] for intake at 12:45PM. -Home intake with [facility] between 3-4PM today. -Discharge prescriptions e-prescribed to [facility] in [place], [place] (Jamal Jones). Paper Rx given for Klonopin 0.5mg Q4H prn #12. Patient aware to pick-up prescriptions from pharmacy and [facility] will arrange for future medication pick-ups during today's intake. -Patient strongly advised to abstain from all substances. -Patient advised that in the event of an emergency, to call 911/go to nearest emergency department. Patient verbalized understanding of all instructions.
[2016-11-15 08:05] VITALS: BP 116/60
--- NOTE | 2016-11-15 09:11 | DISCHARGE SUMMARY REPORT-PSYCH ---
Visit Information Visit Dates/Diagnosis' Admission Date: 11/02/16 Discharge Date: 11/15/16 Reason for Admission: Psychosis Psy Discharge Primary Diag: Schizoaffective disorder Psy Discharge Secondary Diag: Cannabis use disorder; Asthma. Hospital Course Significant Lab Findings: Lab AST 126 U/L H 11/02/16 0200 AST 91 U/L H 11/04/16 0609 Calcium 10.3 mg/dL H 11/02/16 0200 Glucose 110 mg/dL H 11/02/16 0200 Urine Cannabis Screen 68.30 NG/ML H 11/02/16 UNK 11/02/16 RAD - XRY-ANKLE 3 OR MORE VIEWS L; XRY-ANKLE 3 OR MORE VIEWS R; XRY-FOOT COMPLETE, LEFT; XRY-FOOT COMPLETE, R: EXAMINATION: XR FOOT, RIGHT XR FOOT, LEFT XR ANKLE, LEFT XR ANKLE, RIGHT CLINICAL INFORMATION: Plantar pain in each foot with walking. Pain of the left lateral malleolus and pain of the right medial malleolus. COMPARISON: None TECHNIQUE: Left ankle, 3 views Right ankle, 3 views Right foot, 3 views Left foot, 3 views FINDINGS: Left ankle: The talar dome is well-positioned within the intact ankle mortise. The tibiotalar joint space and tibiofibular syndesmotic space are normal. No arthritic deformity, fracture, subluxation or ankle joint effusion. Left foot: Bones have normal density and alignment throughout the foot. No arthritic deformity, fracture, subluxation, osseous erosion or periostitis. No radiopaque foreign bodies within the foot. Right ankle: The talar dome is well-positioned within the intact ankle mortise. The tibiotalar joint space and tibiofibular syndesmotic space are normal. No arthritic deformity, fracture, subluxation or ankle joint effusion. Right foot: Bones have normal density and alignment. The joint spaces are well-preserved throughout the foot. No fracture, subluxation, osseous erosion or periostitis. There are no radiopaque foreign bodies in the plantar aspect of the foot. IMPRESSION: 1. Normal right ankle. 2. Normal left ankle. 3. Normal right foot. 4. Normal left foot. Course Complications: None. Consultations: The patient was seen for admission history and physical by gate keeper Dr. Ralph Evans. Please see MD note for additional information. The patient was treated with a brief course of Prednisone 40mg daily x 5 days for poison micaela to b/l extremities. He additionally utilized prn benadryl and calamine lotion for pruritic relief. Allergies: Coded Allergies: NO KNOWN ALLERGIES (08/11/12) Hospital Course/TX Response: The patient was monitored on the unit for safety, mood and psychosis. He participated in multimodal treatments on the unit. Patient reported outpatient medication adherence prior to [facility] arrival. Abilify 10mg was increased to 15mg po QPM on admission for clear thoughts/mood stability. With support and education the patient was willing to switch to Abilify Maintena given a history of medication non-adherence and this being a condition of his parents for him to return to their home. The patient was adherent with Abilify Maintena 400mg IM, given on 11/12/16. Following Abilify Maintena injection, he reported symptoms of internal restlessness and increased anxiety consistent with akathisia. At this time, Abilify 15mg po QPM was decreased to 5mg QPM. Given a reported history of acute asthma, the patient was started on Clonidine 0.1mg every 8 hours as needed for akathisia, rather than Propranolol. This was eventually changed to every 6 hours as needed. Patient had also been utilizing Ativan 1mg every 6 hours as needed for anxiety, which had little effect. This was changed to Klonopin 0.5mg every 4 hours as needed (NTE 3 doses in 24 hours) for anxiety/akathisia. Patient reported that combination of prn Clonidine and Klonopin lessened the intensity of akathisia. The patient denied further side effects from medications. This contract writer spoke to Iman Shepherd, Director of [facility] IOP, prior to patient's discharge from [facility] and informed her that the patient would be discharged on a brief course of prn Klonopin given recent onset of akathisia. Patient was approved by Iman Davis to transition into the Dual IOP track at [facility] despite this. During the hospital course, the patient's mood and affect improved. His thought process cleared. There was no evidence of overt paranoia or delusional thought content. He consistently denied auditory and visual hallucinations. Two family meetings were held; the first including the patient, his parents, Jesika Lundy LCSW, Dr. Lange, and this contract writer; the second including the patient, his parents, Jesika Lundy LCSW, and this contract writer. During the first family meeting, the patient's parents expressed their concerns regarding the patient's longterm history of treatment and medication non-adherence. They expressed firmly that they would not allow the patient to return to their home unless he was on a long -acting injectable antipsychotic (as he had done well on Prolixin Dec in the past) and consistently engaged in outpatient treatment and agreed for his parents to be involved. The patient's parents made clear that they wanted the patient to be conserved by them, however, they were informed that the patient did not meet criteria at this time for conservation. Education was provided to his parents about voluntary conservatorship, if the patient was agreeable to it. The patient declined this option, however, did agree to have his parents involved in his future outpatient care. During the second family meeting, the patient's treatment progress, medication regimen, level of safety and discharge planning was discussed. Jesika Lundy LCSW and Magalys informed the patient's parents that he was agreeable to receiving Abilify Maintena, which he had identified as being his own personal decision. We also informed his parents that he was agreeable to having daily medication administration by a visiting nurse service and following up with IOP at [facility]. The patient's parents struggled to see the patient's recent progress, despite him inviting them to partake in his subsequent treatment. They continued to ask about conservatorship, which again they were educated on. They agreed to have the patient return home to them; they also agreed with discharge plan which included visiting nurse services for daily medication administration, [facility] Dual IOP and patient remaining on Abilify Maintena. On the date of discharge, 11/15/16, the patient stated that he was glad he had the opportunity to communicate with his parents regarding his future treatment while being here rather than having to do this on his own once discharged. Stated he felt his father was argumentative/challenging at times; feels he will have to utilize strategies like taking space to cope with his father once discharged. He remains agreeable to allow his parents to participate in his outpatient tx. He reported feeling safe returning to their home. Patient continued to exhibit akathisia but to a lesser degree than yesterday, observed fidgeting in chair, pacing around the unit. Reported internal restlessness to be somewhat improved with prn Klonopin, stated he was able to sleep better last night. Stated he is unsure if prn clonidine is helpful; he notes feeling sleepy during the day after taking it. He agreed to utilize this at bedtime for night time restlessness. Patient oriented x 3. Alert. Made good eye contact. Speech normal in rate, tone and volume. Mood, "fine." Affect calm, constricted. Less psychomotor agitation noted today. Cooperative, pleasant. Offered no complaints. Denied acute depressive symptoms. Denied racing thoughts. Denied suicidal and homicidal ideation. Stated and also believed he will not harm himself or others. Denied auditory and visual hallucinations. No evidence of the patient responding internally, of overt paranoia or delusional thought content. Thought process linear, goal-directed. Patient reported tolerating recent medication adjustments well and is agreeable to continue taking. He reported feeling safe and ready for discharge. Discharge HBIPS - Tobacco Use Treatment Offered Post DC Medications Offered: Script Given-See Med List Post DC Tobacco Treatment Plan: Refused Tobacco Tx Pgm - EtOH/Drug Use D/O Treatment Offered Post DC Medications Offered: Med Not Indicated for D/O Post DC EtOH/SubAbuse TX Plan: Tra SubAbuse/Dual IOP Program Appt Date: 11/15/16 Program Appt Time: 1245 Metabolic Screening - Screen if on a Neuroleptic Medication - Metabolic screening should include: - Blood Pressure, BMI, Glucose or Hgb A1c, & a - Lipid profile from within the past 365 days. Metabolic Screening () Not Applicable, patient not on a neuroleptic. OR ([X]) Patient on a neuroleptic(s) . Enter below results for Glucose or Hemoglobin A1C, and lipid panel if obtained during the last 365 days. BMI: 22.000 Blood Pressure: 113/63 Laboratory Results (If applicable): Lab Cholesterol 156 MG/DL 02/21/16 0650 Cholesterol/HDL Ratio 2 % 02/21/16 0650 Glucose 110 mg/dL H 11/02/16 0200 HDL Cholesterol 85 mg/dL H 02/21/16 0650 Hemoglobin A1c 5.7 % 02/21/16 0650 LDL Cholesterol, Calc 55 mg/dL L 02/21/16 0650 Triglycerides 83 mg/dL 02/21/16 0650 Discharge Instructions General Discharge Information Discharge Medications: Discharge Medications- (Dose, route, freq, indication): START taking these NEW Home Medications: Nicotine (Nicotine Dose: On the skin, DAILY @8 AM Qty: 14 Sent to Patch) 21 MG/24 HOUR 21 Milligram for tobacco cessation Refills: 0 Pharm 1 PATCH.TD24 Apply 1 patch topically to upper arm QAM and remove before bedtime. Clonidine HCl Dose: ORAL, EVERY 6 HOURS Qty: 42 Sent to (Clonidine HCl) 0.1 0.1 Milligram NEEDED as needed for Refills: 0 Pharm 1 MG TABLET restlessness/jittery/akat isia Take 1 tab po Q6H as needed for restlessness/akathisia. NTE 3 doses/24 hours. Clonazepam Dose: ORAL, EVERY 4 HOURS Qty: 12 Printed (Klonopin) 0.5 MG 0.5 Milligram NEEDED as needed for Refills: 0 TABLET restlessness/anxiety Take 1 tab po Q4 Hours as needed for restlessness/anxiety. NTE 3 doses in 24 hours. Aripiprazole Dose: INTRAMUSC, Q720H for Qty: 1 Sent to (Abilify Maintena) 400 Milligram clear thoughts/mood Refills: 0 Pharm 1 400 MG SUSER.SYR stability Take 400mg IM every 30 days. Last dose: 11/12/16. Next dose: 12/12/16. Aripiprazole Dose: ORAL, Every night for Qty: 13 Sent to (Abilify) 5 MG 5 Milligram clear thoughts/mood Refills: 0 Pharm 1 TABLET stability Take 1 tab po QPM. Bacitracin Dose: ON SKIN, TWICE DAILY for Qty: 1 Sent to (Bacitracin Zinc) 1 Application finger blisters Refills: 0 Pharm 1 500 UNIT/GRAM Apply topically to OINT...G. finger blisters b.i.d. CONTINUE taking these Home Medications: Albuterol Sulfate Dose: Inhale through mouth, (Proventil Hfa) 6.7 GM 2 Puff as needed for ASTHMA HFA.AER.AD Last Taken:10/18/16 Time:6pm STOP taking these DISCONTINUED Home Medications: Aripiprazole (Abilify) 5 MG Dose: ORAL, DAILY for clarify and calm TABLET 5 Milligram thoughts Reason Stopped: Changed Dose Aripiprazole (Abilify) 5 MG Dose: ORAL, Q6H as needed for TABLET 5 Milligram irritable/racing thoughts/insomnia Reason Stopped: Changed Dose 1: [id number], [address], [place] [address] Your Preferred Pharmacy [id number] [address] [place] [address] Multiple Neuroleptics: ([X]) Not Applicable OR Document below three failed attempts at monotherapy, or a plan to taper to monotherapy, or augmentation of Clozapine. () Patient's Diet: Regular. Patient's Activity: No restrictions. DC Disposition: Patient to return to the home of his parents. Recommendations: The patient was advised to please take his medications as prescribed. He was advised to abstain from illicit substances and alcohol. He was advised to follow up with discharge referrals (see in below section). Patient was advised to follow up with his PCP regarding elevated AST. He was advised that in the event of an emergency to call 911/go to nearest emergency department. The patient verbalized understanding of all instructions. Referred To: Post Discharge Referrals Provider Referral Service Date: 11/15/16 Referred To: [[facility]] Notes: [address] (t)[phone] Intake: 11/15/16, 12:45pm Provider Referral Service Date: 11/15/16 Referred To: [[facility]] Notes: [facility] [address] [place] [id number] [phone])[phone] *Initial appointment scheduled for 11/15/16 between 3pm and 4pm with Arminda. Contact: Winter [phone] Copies To: [facility]; [facility]
--- NOTE | 2016-11-15 10:44 | SOCIAL WORKER PROG NOTE PSYCH ---
Social Work Progress Note Progress Note 10:40am This lyric writer spoke with Winter at [facility]. She requested that they are informed when the patient is discharged in order to schedule the intake appointment this afternoon/evening. She stated that they would be able to meet with the pt today and will contact him to schedule the appointment. Winter confirmed that [facility] will be able to administer the monthly injection.
[2016-11-15] MEDS ORDERED: NICOTINE PATCH1 EAC3 TOP (11:44)
[2016-11-15] MEDS ORDERED: ABILIFY MAINTE400 MG IM (11:44)
[2016-11-15] MEDS ORDERED: CLONIDINE HCL0.1 MG PO (11:44)
[2016-11-15] MEDS ORDERED: KLONOPIN0.5 M1 PO (11:44)
[2016-11-15] MEDS ORDERED: ABILIFY5 M1 PO (11:44)
[2016-11-15] MEDS ORDERED: BACITRACIN ZIN120 GM EXT (11:44)
--- NOTE | 2016-11-15 11:45 | SOCIAL WORKER PROG NOTE PSYCH ---
Social Work Progress Note Progress Note Sw met with pt. He reported that he is overall feeling well with good mood. He denied SI/HI/AH/VH. Discharge plans were discussed: - [facility], intake assessment scheduled for 11/15/16, at 12:45pm - [facility], beginning 11/15/16. Pt and this sports writer spoke with Arminda who will be meeting with him between 3pm and 4pm today. Pt provided a phone number to Arminda. Pt appeared motivated to follow through with these discharge plans. He stated that his mother would meet him at the IOP at 12:45pm. Winter, at [facility] , reported receipt of fax (Physician Verbal Doctor's Order). She also stated that the pt's medications could be sent to his regular pharmacy for first time pick up driver (visiting nurse will lock prescriptions upon her arrival to pt's home today) and that [facility] would coordinate a pick up driver with the pharmacy they use for further refills. Pt [facility] [address], [place].
[2016-11-15 12:30] VITALS: BP 113/63
--- NOTE | 2016-11-16 11:48 | SOCIAL WORKER PROG NOTE PSYCH ---
Social Work Progress Note Progress Note 11:47am Called [facility] to provide clinical regarding discharge from [facility] and obtain an IOP auth. Lens Grinding Machine Operator I spoke with transferred me to the animal caretaker's vm ( Jesika) and instructed me to not leave d/c clinical and provide a number where the animal caretaker could return the call. 12:18pm Jesika at [facility] ([phone], ext [phone]) returned this sheet writer's call with the following IOP auth information: start: 11/15 end: 12/05/16 number of days: 10 auth #: [id number] 11:49am This Sw spoke with Elba alexander [place] to provide discharge clinical and obtain an IOP authorization: IOP: 15 days start: 11/15/16 end: 12/16/16 auth #:
== END 2016-11-15 12:52 | DRG 885 ==
LOC: ERH 01:21 → ERHI 14:47 → CP SOUTH 14:47 → ENRESERV 16:00 → ENTRNSPT 16:37 → CP SOUTH 17:03 → CMPTRNSPT 17:11 → CP SOUTH 11-03 16:21
PROVIDERS: Emergency Medicine; Registered Nurse Psychiatric/Mental Health; ADMIT Psychiatry & Neurology Addiction Medicine
DX: F25.9 Schizoaffective disorder, unspecified (principal); F12.90 Cannabis use, unspecified, uncomplicated; J45.909 Unspecified asthma, uncomplicated
CPT/HCPCS: 36415; 73610-LT; 73610-RT; 73630-LT; 73630-RT; 80307; G0463; G0480; J0401; J1200; J1630

== ENCOUNTER 2017-06-22 01:18 | Emergency (ER) | payer OTHER ==
[~2017-06-22] VITALS: Ht 177.8 cm; Wt 79.4 kg
[~2017-06-22 01:18] MED LIST changes: +ABILIFY MAINTE400 MG IM; +BACITRACIN ZIN120 GM EXT; +CLONIDINE HCL0.1 MG PO; +KLONOPIN0.5 M1 PO; +NICOTINE PATCH1 EAC3 TOP
[2017-06-22] MEDS ORDERED: KLONOPIN0.5 M1 PO (01:37)
[2017-06-22] MEDS ORDERED: PROLIXIN PO (01:38)
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
[2017-06-22] MEDS ORDERED: IBUPROFEN800 M1 PO (03:35)
[2017-06-22 03:42] VITALS: BP 128/73
== END 2017-06-22 03:43 ==
LOC: ERH 01:18
DX: S02.2XXA Fracture of nasal bones, initial encounter for closed fracture (principal); S06.0X9A Concussion with loss of consciousness of unspecified duration, initial encounter; Y04.8XXA Assault by other bodily force, initial encounter; Y92.9 Unspecified place or not applicable; Y93.9 Activity, unspecified

== ENCOUNTER 2017-10-03 20:45 | Inpatient (IN) | payer OTHER ==
[~2017-10-03] VITALS: Ht 177.8 cm; Wt 70.8 kg
[~2017-10-03 20:45] MED LIST changes: +IBUPROFEN800 M1 PO; +PROLIXIN PO
--- NOTE | 2017-10-03 21:02 | ED PSYCHIATRIC COMPLAINT ---
See Addendum History of Present Illness General Chief Complaint: Psychiatric Related Complaint Stated Complaint: BIBA FOR PSYCH EVAL Source: patient, old records, EMS Exam Limitations: no limitations Vital Signs & Intake/Output Vital Signs & Intake/Output Vital Signs Date Time Temp Pulse Resp B/P B/P Pulse O2 O2 Flow FiO2 Mean Ox Delivery Rate 10/04 0623 98.2 86 16 122/67 99 Room Air 10/03 2050 98.1 76 18 132/84 97 Room Air ED Intake and Output 10/04 0000 10/03 1200 Intake Total 240 Output Total Balance 240 Intake, Oral 240 Patient 160 lb Weight Weight Reported by Patient Measurement Method Allergies Coded Allergies: NO KNOWN ALLERGIES (08/11/12) Reconcile Medications Clonazepam (Klonopin) 0.5 MG TABLET 1 TAB PO BIDP (Reported) Ibuprofen 800 MG TABLET 1 TAB PO TID PRN PAIN [PROLIXIN] 5 MG 5 MG PO BID (Reported) Triage Note: PT BIBA FROM HOME DUE TO HIS PARENTS BEING CONCERNED WITH HIS BEHAVIOR. ON ARRIVAL HE IS CALM AND COOPERATIVE. ANSWERING QUESTIONS APPROPIATELY. REPORTS HE CAME HOME FROM A WALK AND HIS PARENTS ASKED HIM TO COME TO THE ED FOR EVALUATION TO WHICH HE AGREED. DENIED SI/HI. DENIED DRUG ABUSE. REPORTS COMPLIANCE WITH HIS MEDICATIONS. Triage Nurses Notes Reviewed? yes HPI: Patient was out for a walk this evening and his parents became concerned because the weather. Patient has schizoaffective disorder. His family became concerned so called the ambulance. They wanted him checked out to make sure that he was not getting manic. Patient was agreeable to come in. Patient has no current complaints. Patient denies any suicidal or homicidal ideations. (Darryl OJEDA,Juan Arellano) Past History Travel History Traveled to [place] past 21 day No Medical History Any Pertinent Medical History? see below for history Neurological: History of Lyme disease 3-4 years ago. EENT: allergies Cardiovascular: NONE Respiratory: childhood asthma (diagnosed age 9 yrs) Gastrointestinal: NONE Hepatic: NONE Renal: NONE Musculoskeletal: plantar fasciitis, right foot. Psychiatric: schizo affective disorder Endocrine: NONE Blood Disorders: NONE Cancer(s): NONE QUALITY ASSURANCE/Reproductive: NONE Other Medical Hx: Acne History of MRSA: No History of VRE: No History of CDIFF: No Surgical History Surgical History: appendectomy, Closed reduction of right knee dislocation Psychosocial History Who do you live with Family Services at Home None What is your primary language Khmer Tobacco Use: Current Daily Use Daily Tobacco Use Amount/Type: => 5 Cigarettes daily ETOH Use: denies use Illicit Drug Use: denies illicit drug use Family History Family History, If Any: FATHER (HTN, DM.). MOTHER (HTN.). SISTER (HTN.). Maternal grandfather (Lung cancer). Uncle (CAD s/p stent.). Relation not specified for: *No pertinent family history Hx Contributory? No (Darryl OJEDA,Juan Arellano) Review of Systems Review of Systems Constitutional: Reports: no symptoms. EENTM: Reports: no symptoms. Respiratory: Reports: no symptoms. Cardiovascular: Reports: no symptoms. GI: Reports: no symptoms. Genitourinary: Reports: no symptoms. Musculoskeletal: Reports: no symptoms. Skin: Reports: no symptoms. Neurological/Psychological: Reports: no symptoms. Hematologic/Endocrine: Reports: no symptoms. Immunologic/Allergic: Reports: no symptoms. All Other Systems: Reviewed and Negative (Darryl OJEDA,Juan Arellano) Physical Exam Physical Exam General Appearance: well developed/nourished, mild distress Head: atraumatic Eyes: Bilateral: PERRL, EOMI. Ears, Nose, Throat: normal pharynx, normal ENT inspection, hearing grossly normal Neck: normal inspection, supple Respiratory: normal breath sounds, chest non-tender, no respiratory distress, lungs clear Cardiovascular: regular rate/rhythm, normal peripheral pulses Gastrointestinal: normal bowel sounds, soft, non-tender Extremities: normal range of motion Neurological/Psychiatric: no motor/sensory deficits, awake, alert, calm, oriented x 3 Appearance/Memory/Insight: denies illness Behavoir/Eye Contact/Speech: cooperative, normal speech, good eye contact Thoughts/Hallucinations: normal thought pattern, no apparent hallucination Skin: intact, normal color, warm/dry SAD PERSONS Done? CRISIS CONSULT OBTAINED (Darryl OJEDA,Juan Arellano) Progress Differential Diagnosis: drug intoxication, drug overdose, drug withdrawal, electrolyte abnormality Plan of Care: Orders Procedure Date/time Status Regular Diet 10/04 B Active URINE DRUG SCREEN FOR ER ONLY 10/04 0734 Active URINALYSIS 10/04 0734 Active Continuous Observation Monitor 10/03 2048 Active ETHANOL 10/03 2048 Complete COMPREHENSIVE METABOLIC PANEL 10/03 2048 Complete CBC WITHOUT DIFFERENTIAL 10/03 2048 Complete ED CRISIS PSYCH CONSULT 10/03 2048 Active Current Medications Sig/Fran Start time Last Medication Dose Stop Time Status Admin Fluphenazine HCl 5 MG BID 10/04 0900 UNVr 10/04 (Prolixin 5 MG 0850 Tablet.) Clonazepam 0.5 MG BID PRN 10/03 2114 AC (KlonoPIN) 10/10 2113 Laboratory Tests 10/04/17 0859: Urine Opiates Screen Pending, Methadone Screen Pending, Barbiturate Screen Pending, Ur Phencyclidine Scrn Pending, Amphetamines Screen Pending, U Benzodiazepines Scrn Pending, Urine Cocaine Screen Pending, Urine Cannabis Screen Pending, Urine Color Pending, Urine Clarity Pending, Urine pH Pending, Ur Specific [place] Pending, Urine Protein Pending, Urine Ketones Pending, Urine Nitrite Pending, Urine Bilirubin Pending, Urine Urobilinogen Pending, Ur Leukocyte Esterase Pending, Ur Microscopic SEDIMENT EXAMINED, Urine RBC Pending, Urine Hemoglobin Pending, Urine Glucose Pending 10/03/172056: Anion Gap 12, Estimated GFR > 60, BUN/Creatinine Ratio 22.5, Glucose 129 H, Calcium 9.2, Total Bilirubin 0.6, AST 38, ALT 31, Alkaline Phosphatase 59, Total Protein 6.4, Albumin 4.0, Globulin 2.4, Albumin/Globulin Ratio 1.7, CBC w Diff NO MAN DIFF REQ, RBC 4.31 L, MCV 86.4, MCH 28.8, MCHC 33.3, RDW 14.2, MPV 9.9, Gran % 61.4, Lymphocytes % 27.8, Monocytes % 7.0, Eosinophils % 3.5, Basophils % 0.3, Absolute Granulocytes 5.6, Absolute Lymphocytes 2.5, Absolute Monocytes 0.6 , Absolute Eosinophils 0.3, Absolute Basophils 0, Serum Alcohol < 10.0 10/03/172048: Methadone Screen Cancelled, Barbiturate Screen Cancelled, Ur Phencyclidine Scrn Cancelled, Amphetamines Screen Cancelled, U Benzodiazepines Scrn Cancelled, Urine Cocaine Screen Cancelled, Urine Cannabis Screen Cancelled, Urine Color Cancelled, Urine Clarity Cancelled, Urine pH Cancelled, Ur Specific [place] Cancelled, Urine Protein Cancelled, Urine Ketones Cancelled, Urine Nitrite Cancelled, Urine Bilirubin Cancelled, Urine Urobilinogen Cancelled, Ur Leukocyte Esterase Cancelled, Ur Microscopic Cancelled, Urine Hemoglobin Cancelled, Urine Glucose Cancelled Hand-Off Endorsed To: Yony Oglesby DO Endorsed Time: 0700 Pending: consult (Darryl OJEDA,Juan Arellano) Departure Departure Disposition: STILL A PATIENT Condition: Stable Clinical Impression Primary Impression: Schizo-affective psychosis Referrals: Kaden Velazquez MD (PCP/Family) Departure Forms: Customer Survey General Discharge Information (Darryl OJEDA,Juan Arellano) Departure Comments 10/04/17 The patient was signed out to me by Dr. Andrews. He is pending disposition by crisis. (Yony Oglesby DO)
[2017-10-03 21:09] LABS: ABSOLUTE BASOPHIL COUNT 0 /CUMM (0.0-0.2); ABSOLUTE EOSINOPHIL COUNT 0.3 /CUMM (0.0-0.7); ABSOLUTE GRANULOCYTE CT 5.6 /CUMM (1.4-6.5); ABSOLUTE LYMPH COUNT 2.5 /CUMM (1.2-3.4); ABSOLUTE MONOCYTE COUNT 0.6 /CUMM (0.10-0.60); BASOPHIL % 0.3 % (0.0-2.0); EOSINOPHIL % 3.5 % (0-5); GRANULOCYTE % 61.4 % (42.2-75.2); HEMATOCRIT 37.3 % (42-52); MEAN CORPUSCULAR HGB 28.8 PG (27.0-31.0); MEAN CORPUSCULAR HGB CONC 33.3 G/DL (33.0-37.0); MEAN CORPUSCULAR VOLUME 86.4 FL (80.0-94.0); MEAN PLATELET VOLUME 9.9 FL (7.4-10.4); PLATELET COUNT 233 /CUMM (130-400); RBC DISTRIBUTION WIDTH 14.2 % (11.5-14.5); RED BLOOD CELL CT 4.31 /CUMM (4.70-6.10); WHITE BLOOD CELL COUNT 9.1 /CUMM (4.8-10.8)
--- NOTE | 2017-10-04 11:12 | ED PSYCH CRISIS CONSULTATION ---
See Addendum Crisis Consult Basic Assessment Date of Consult: 10/04/17 Responsible Person/Accompanied By: Self Insurance Authorization: Insurance #1: Insurance name: Pen[employer] Phone number: Policy number: [id number] Group [id number] Authorization number: ED Provider: Patient's ED Provider: Darryl OJEDA,Juan Arellano Primary Care Physician: Patient's PCP: Kaden Velazquez MD PCP's Current Psychiatrist: [facility] Chief Complaint: Psychiatric Related Complaint Patient's Quote: "My parents had concerns so they called the police". Present Illness: Pt is a 37 year old white male BIBA from his home to [facility] ED. Pt's parents were concerned over pt's behavior and called the police. Upon evaluation pt stated that he went out for a walk yesterday and when he got home the police were there. Pt was unable to offer any reason for his parents decision to call the police. Pt stated that he lives with his parents in [place]. Pt stated that he has a high school diploma and a Bachelor's degree in Physics from [employer] in [facility] [employer] [facility]. Pt stated that he does not have an employment history. Pt enjoys walking, reading and listening to music. He frequently takes walks in [place] [facility]. Clinician was able to speak with pt's parents Brandin by phone. Parents expressed concern over pt's recent behavior. They stated that he has been acting "manicky" over the past few days. They said he "races around" and seems to becoming progressively worse. Father stated that pt has been "off the wall" and talking to himself. They stated that pt spends a lot of time in the basement and has a bedroom upstairs. They described that the areas pt stays in are a complete mess. They also described hoarding and ritualistic behavior. They haven't seen any clear suicidal or aggressive behavior but are worried he will "do something". They stated that they don't trust him claiming that he is "scary". He talks very little and they feel he is unpredictable. They explained that they dispense his medications but feel he may be cheeking the meds as he did in the past. He has consistently refused IM medications in the past. Parents also stated that at this point they are going to refuse him back into the home. Pt is currently being treated at [facility] and stated that he sees therapist Verito Jenkins and Lily for medication management. Pt also stated that he has a follow up appointment with Lily this coming Monday. Patient stated that he is taking Prolixin 5 mg BID and Klonopin .5 mg BID. He claimed that he has been compliant with his medications which his parents question. Pt's mother stated that pt has had numerous inpatient hospitalizations in the past. She stated that since this past November pt has had three admissions. Pt stated that he has a Schizophrenia diagnosis. Pt denied any history of or current alcohol or illicit substance use. However, his UDS came back positive for marijuana. Pt and parents denied any history of substance abuse treatment. Pt was alert and oriented. He was cooperative with the evaluation process. There was no irritability or agitation noted. He was unable to clearly explain as to why he believed his parents called the police and sent him to the ED. He was not a reliable informant. Pt's mood and affect were flat and somewhat guarded/paranoid. Eye contact was wnl. He denied any AH/VH. He also denied any paranoia or delusions. Given pt's unpredictable behavior, parent's safety concerns and pt's chronic psychiatric history and medication noncompliance he is considered at heightened risk for possible harm to self and or others. Pt's current needs meet an inpatient level of care which is recommended at this time. The [facility] psychiatrist was consulted and the pt agreed to sign a voluntary admission. Clinician also called [facility] and left a voice message for Verito Jenkins informing her of the pending inpatient admission. Shortly thereafter, Fina from [facility] returned the call. Report was given and Monday's appointment at [facility] was cancelled. Patient's Address: [address] [place] [address] Other Phone Number: Who Do You Live With? Family Family/Informants Interviewed: Parents (Sigrid and Brian Earldena), [facility] ( Fina) Allergies - Coded Allergies: NO KNOWN ALLERGIES (08/11/12) Current Medications - Scheduled Medications Clonazepam (Klonopin) 0.5 MG TABLET 1 TAB PO BIDP (Reported) Entered as Reported by Marielena Gill on 06/22/17 0137 [PROLIXIN] 5 MG 5 MG PO BID (Reported) Entered as Reported by Marielena Gill on 06/22/17 0138 Scheduled PRN Medications Ibuprofen 800 MG TABLET 1 TAB PO TID PRN PAIN #20 TAB Prescribed by Juana Rey MD on 06/22/17 Laboratory Results: Laboratory Tests 10/04/17 0859: Urine Opiates Screen < 100, Methadone Screen < 40, Barbiturate Screen < 60, Ur Phencyclidine Scrn < 6.00, Amphetamines Screen 115, U Benzodiazepines Scrn < 85, Urine Cocaine Screen < 50, Urine Cannabis Screen > 80.00 H, Urinalysis LIGHT H , Urine Color YEL, Urine Clarity HAZY H, Urine pH 6.0, Ur Specific [place] 1.025, Urine Protein NEG, Urine Ketones NEG, Urine Nitrite NEG, Urine Bilirubin NEG, Urine Urobilinogen 0.2, Ur Leukocyte Esterase NEG, Ur Microscopic SEDIMENT EXAMINED, Urine RBC 3-5, Urine WBC 1-3 H, Ur Epithelial Cells RARE, Urine Crystals RARE [place], Urine Bacteria FEW H, Urine Mucus MANY H, Urine Hemoglobin NEG, Urine Glucose NEG 10/03/172056: Anion Gap 12, Estimated GFR > 60, BUN/Creatinine Ratio 22.5, Glucose 129 H, Calcium 9.2, Total Bilirubin 0.6, AST 38, ALT 31, Alkaline Phosphatase 59, Total Protein 6.4, Albumin 4.0, Globulin 2.4, Albumin/Globulin Ratio 1.7, CBC w Diff NO MAN DIFF REQ, RBC 4.31 L, MCV 86.4, MCH 28.8, MCHC 33.3, RDW 14.2, MPV 9.9, Gran % 61.4, Lymphocytes % 27.8, Monocytes % 7.0, Eosinophils % 3.5, Basophils % 0.3, Absolute Granulocytes 5.6, Absolute Lymphocytes 2.5, Absolute Monocytes 0.6 , Absolute Eosinophils 0.3, Absolute Basophils 0, Serum Alcohol < 10.0 10/03/172048: Methadone Screen Cancelled, Barbiturate Screen Cancelled, Ur Phencyclidine Scrn Cancelled, Amphetamines Screen Cancelled, U Benzodiazepines Scrn Cancelled, Urine Cocaine Screen Cancelled, Urine Cannabis Screen Cancelled, Urine Color Cancelled, Urine Clarity Cancelled, Urine pH Cancelled, Ur Specific [place] Cancelled, Urine Protein Cancelled, Urine Ketones Cancelled, Urine Nitrite Cancelled, Urine Bilirubin Cancelled, Urine Urobilinogen Cancelled, Ur Leukocyte Esterase Cancelled, Ur Microscopic Cancelled, Urine Hemoglobin Cancelled, Urine Glucose Cancelled Past History Past Medical History Neurological: History of Lyme disease 3-4 years ago. EENT: allergies Cardiovascular: NONE Respiratory: childhood asthma (diagnosed age 9 yrs) Gastrointestinal: NONE Hepatic: NONE Renal: NONE Musculoskeletal: plantar fasciitis, right foot. 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 Physical Limitations (Interventions): Per history- Ambulatory, but demonstrates a limp, favoring his right foot. Psychiatric Treatment History Psych Treatment Psychiatric Treatment Yes Inpatient Treatment Yes Outpatient Treatment Yes Location of Treatment [facility], [place], [place], [facility] Reason for Treatment Chronic mental illness/psychosis Dates of Treatment [facility]-current, multiple inpatient hospitalizations. Response to Treatment History of medication noncompliance. Diagnosis by History: schizoaffective disorder Substance Use/Abuse History Drug Use/Abuse Substances Used/Abused Yes Substance Used/Abused Marijuana First Use Unknown Last Used Unknown How much used/taken Unknown How often Unknown For how long Unknown Route of use Unknown Substance Abuse Treatment Substance Abuse Treatment Past Substance Abuse [place] No Inpatient Treatment No Outpatient Treatment No Comments: Pt denied any current or past substance abuse. However, his UDS came back positive for marijuana. Current Mental Status Mental Status Orientation: Person, Place, Situation Affect: Flat Speech: WNL Neuro-vegetative: Energy Increased Appearance Appearance- Dress/Hygiene: Pt dressed in hospital scrubs. Hygiene appears wnl. Behaviors Thought Process: WNL Thought Content: Paranoid (guarded/paranoid) Memory: Impaired Insight: Poor SI/HI Risk Assessment Past Suicidal Ideation/Attempts No Current Suicidal Ideation/Att No Past Homicidal Ideation/Att: No Current Homicidal Ideation/Attempts No Danger To: Others, Self Gravely Disabled: Lack of Insight, Poor Judgment Risk Factors: SA/MH hospitalized, substance abuse, isolate/no social support, male Lethality Ratin PTSD Checklist PTSD Done? patient declined ED Management Sitter: Yes Restraints: No DSM5/PS Stressors/Medical Prob Diagnosis' (DSM 5, Stressors, Medical): F29 Unspecified Schizophrenia Spectrum and other Psychotic Disorder Current GAF: 25 Departure Disposition Psych Medical Clearance Date: 10/04/17 Medically Cleared at: 929 Time Started: 929 Time Ended: 1029 Psychiatrist Consulted: Dr. Veliz Date Disposition Established: 10/04/17 Time Disposition Established: 1044 Plan for Disposition - Modality: Inpatient Psychiatry Facility: [facility] Rationale for Disposition: Given pt's unpredictable behavior, parent's safety concerns and pt's chronic psychiatric history and medication noncompliance he is considered at heightened risk for possible harm to self and or others. Pt's current needs meet an inpatient level of care which is recommended at this time. The [facility] psychiatrist was consulted and the pt agreed to sign a voluntary admission. Type of IP Admission: Voluntary Referrals Kaden Velazquez MD (PCP/Family)
--- NOTE | 2017-10-04 11:56 | IP CRISIS DIAG ASSESS PSYCH ---
See Addendum Diagnostic Assessment Basic Assessment Insurance Authorization: Insurance #1: Insurance name: [facility] Phone number: Policy number: [id number] Group number: [id number] Authorization number: Primary Care Physician: Patient's PCP: Kaden Velazquez MD PCP's Patient's Quote: "My parents had concerns so they called the police". Present Illness: Pt is a 37 year old white male BIBA from his home to [place]'s ED. Pt's parents were concerned over pt's behavior and called the police. Upon evaluation pt stated that he went out for a walk yesterday and when he got home the police were there. Pt was unable to offer any reason for his parents decision to call the police. Pt stated that he lives with his parents in [place]. Pt stated that he has a high school diploma and a Bachelor's degree in Physics from [employer] in [facility]. Pt stated that he does not have an employment history. Pt enjoys walking, reading and listening to music. He frequently takes walks in [facility] [place]. Clinician was able to speak with pt's parents Brian and Sigrid by phone. Parents expressed concern over pt's recent behavior. They stated that he has been acting "manicky" over the past few days. They said he "races around" and seems to becoming progressively worse. Father stated that pt has been "off the wall" and talking to himself. They stated that pt spends a lot of time in the basement and has a bedroom upstairs. They described that the areas pt stays in are a complete mess. They also described hoarding and ritualistic behavior. They haven't seen any clear suicidal or aggressive behavior but are worried he will "do something". They stated that they don't trust him claiming that he is "scary". He talks very little and they feel he is unpredictable. They explained that they dispense his medications but feel he may be cheeking the meds as he did in the past. He has consistently refused IM medications in the past. Parents also stated that at this point they are going to refuse him back into the home. Pt is currently being treated at [facility] and stated that he sees therapist Verito Jenkins and Lily for medication management. Pt also stated that he has a follow up appointment with [facility] this coming Monday. Patient stated that he is taking Prolixin 5 mg BID and Klonopin .5 mg BID. He claimed that he has been compliant with his medications which his parents question. Pt's mother stated that pt has had numerous inpatient hospitalizations in the past. She stated that since this past November pt has had three admissions. Pt stated that he has a Schizophrenia diagnosis. Pt denied any history of or current alcohol or illicit substance use. However, his UDS came back positive for marijuana. Pt and parents denied any history of substance abuse treatment. Pt was alert and oriented. He was cooperative with the evaluation process. There was no irritability or agitation noted. He was unable to clearly explain as to why he believed his parents called the police and sent him to the ED. He was not a reliable informant. Pt's mood and affect were flat and somewhat guarded/paranoid. Eye contact was wnl. He denied any AH/VH. He also denied any paranoia or delusions. Given pt's unpredictable behavior, parent's safety concerns and pt's chronic psychiatric history and medication noncompliance he is considered at heightened risk for possible harm to self and or others. Pt's current needs meet an inpatient level of care which is recommended at this time. The [facility] psychiatrist was consulted and the pt agreed to sign a voluntary admission. Clinician also called [facility] and left a voice message for Verito Hennessyfrancewest informing her of the pending inpatient admission. Shortly thereafter, Fina from [facility] returned the call. Report was given and Monday's appointment at [facility] was cancelled. Patient's Address: [address] [place] [address] Other Phone Number: Who Do You Live With? Family Feel Safe Where You Live? Yes Feel Safe in Your Relationship Yes Marital Status: single Do You Have Children? No Primary Language? Ecuadorean Language(s) Spoken At Home: Ecuadorean Family/Informants Interviewed: Parents (Sigrid and Brian Roque), [facility] ( Fina) Allergies - Coded Allergies: NO KNOWN ALLERGIES (08/11/12) Current Medications - Scheduled Medications Clonazepam (Klonopin) 0.5 MG TABLET 1 TAB PO BIDP (Reported) Entered as Reported by Marielena Gill on 06/22/17 0137 [PROLIXIN] 5 MG 5 MG PO BID (Reported) Entered as Reported by Marielena Gill on 06/22/17 0138 Scheduled PRN Medications Ibuprofen 800 MG TABLET 1 TAB PO TID PRN PAIN #20 TAB Prescribed by Juana Rey MD on 06/22/17 Consequences of Psych Med Use: Pt had been on IM medications in the past due to medication noncompliance. Lab Results: Laboratory Tests 10/04/17 0859: Urine Opiates Screen < 100, Methadone Screen < 40, Barbiturate Screen < 60, Ur Phencyclidine Scrn < 6.00, Amphetamines Screen 115, U Benzodiazepines Scrn < 85, Urine Cocaine Screen < 50, Urine Cannabis Screen > 80.00 H, Urinalysis LIGHT H , Urine Color YEL, Urine Clarity HAZY H, Urine pH 6.0, Ur Specific [place] 1.025, Urine Protein NEG, Urine Ketones NEG, Urine Nitrite NEG, Urine Bilirubin NEG, Urine Urobilinogen 0.2, Ur Leukocyte Esterase NEG, Ur Microscopic SEDIMENT EXAMINED, Urine RBC 3-5, Urine WBC 1-3 H, Ur Epithelial Cells RARE, Urine Crystals RARE CA OX, Urine Bacteria FEW H, Urine Mucus MANY H, Urine Hemoglobin NEG, Urine Glucose NEG 10/03/172056: Anion Gap 12, Estimated GFR > 60, BUN/Creatinine Ratio 22.5, Glucose 129 H, Calcium 9.2, Total Bilirubin 0.6, AST 38, ALT 31, Alkaline Phosphatase 59, Total Protein 6.4, Albumin 4.0, Globulin 2.4, Albumin/Globulin Ratio 1.7, CBC w Diff NO MAN DIFF REQ, RBC 4.31 L, MCV 86.4, MCH 28.8, MCHC 33.3, RDW 14.2, MPV 9.9, Gran % 61.4, Lymphocytes % 27.8, Monocytes % 7.0, Eosinophils % 3.5, Basophils % 0.3, Absolute Granulocytes 5.6, Absolute Lymphocytes 2.5, Absolute Monocytes 0.6 , Absolute Eosinophils 0.3, Absolute Basophils 0, Serum Alcohol < 10.0 10/03/172048: Methadone Screen Cancelled, Barbiturate Screen Cancelled, Ur Phencyclidine Scrn Cancelled, Amphetamines Screen Cancelled, U Benzodiazepines Scrn Cancelled, Urine Cocaine Screen Cancelled, Urine Cannabis Screen Cancelled, Urine Color Cancelled, Urine Clarity Cancelled, Urine pH Cancelled, Ur Specific [place] Cancelled, Urine Protein Cancelled, Urine Ketones Cancelled, Urine Nitrite Cancelled, Urine Bilirubin Cancelled, Urine Urobilinogen Cancelled, Ur Leukocyte Esterase Cancelled, Ur Microscopic Cancelled, Urine Hemoglobin Cancelled, Urine Glucose Cancelled Toxicology Screen Completed? Yes Results: positive Past History Past Medical History Medical History: Asthma, Psychiatric history, Schizoaffective disorder, Pt reports plantar fasciitis, right heel Past Surgical History Surgical History appendectomy Abuse/Trauma History Trauma History/Current Trauma: Denies Victim or Perpretator? victim Patient's Age at Time of Trauma: 0 History of Trauma/Abuse Treatment? No Abuse/Trauma Treatment: He states that he was traumatized by being forced to take Prolixin injections. Legal History Current Legal Status: none Have you ever been arrested? No Number of Arrests: [address] Dates: Denied Quality Assurance Analyst Denied Psychosocial History Strengths/Capabilities: The patient does appear to have supportive parents and is on social security disability. Physical Limitations (Interventions): Per history- Ambulatory, but demonstrates a limp, favoring his right foot. Psychiatric Treatment History Psych Treatment Psychiatric Treatment Yes Inpatient Treatment Yes Outpatient Treatment Yes Location of Treatment [facility], [place], [place], [facility] Reason for Treatment Chronic mental illness/psychosis Dates of Treatment [facility]-current, multiple inpatient hospitalizations. Response to Treatment History of medication noncompliance. Diagnosis by History: schizoaffective disorder Risk Factors: SA/MH hospitalized, substance abuse, isolate/no social support, male Substance Use/Abuse History Drug Use/Abuse minimum 12mo Hx Substances Used/Abused Yes Substance Used/Abused Marijuana First Use Unknown Last Used Unknown How much used/taken Unknown How often Unknown For how long Unknown Route of use Unknown Substance Abuse Treatment Substance Abuse Treatment Past Substance Abuse TX No Inpatient Treatment No Outpatient Treatment No Sexual History Sexually Active No # of partners 0 Sexual Concerns: * Per records, his ex-girlfriend has noted that he can be sexually inappropriate in public. Education History Highest Level of Education: bachelor's degree Current Mental Status Mental Status Orientation: Person, Place, Situation Affect: Flat Speech: WNL Neuro-vegetative: Energy Increased Appearance Appearance- Dress/Hygiene: Pt dressed in hospital scrubs. Hygiene appears wnl. Behaviors Thought Process: Irrational Thought Content: Paranoid (guarded/paranoid) Memory: Impaired Insight: Poor SI/HI Risk Assessment - Minimum 6mo History- Past Suicidal Ideation/Attempts No Current Suicidal Ideation/Att No Past Homicidal Ideation/Att: No Current Homicidal Ideation/Attempts No Danger To: Others, Self Gravely Disabled: Lack of Insight, Poor Judgment Risk Factors: SA/MH hospitalized, substance abuse, isolate/no social support, male Lethality Ratin Needs/Init TX Plan/Goals: decrease psychotic symptoms and medication compliance/review AUDIT-C Questionnaire: AUDIT-C Questionnaire: Response Value ETOH use in the past year Never 0 # drinks typical/day Doesn't Drink 0 6 or > drinks per occasion Never 0 Total 0 DSM5/PS Stressors/Medical Prob Diagnosis' (DSM 5, Stressors, Medical): F29 Unspecified Schizophrenia Spectrum and other Psychotic Disorder Current GAF: 25
[2017-10-04 15:52] VITALS: BP 127/65
--- NOTE | 2017-10-04 15:54 | History & Physical ---
General Information and HPI MD Statement: I have seen and personally examined SE[facility] CLEMONS and documented this H&P. The patient is a 37 year old M who presented with a patient stated chief complaint of "my parents had concerns he called the police "". Source of Information: patient, family, old records Exam Limitations: unable to give history History of Present Illness: 37-year-old white male brought in by ambulance for a psych evaluation and parents were concerned with his behavior once he got to the ER he was calm and cooperative he carries a diagnosis of schizoaffective disorder per father he "just of the wall contains to himself" patient goes to treatment at [facility] and seems compliant with his medications the patient is admitted for evaluation and treatment. Allergies/Medications Allergies: Coded Allergies: NO KNOWN ALLERGIES (08/11/12) Home Med list Clonazepam (Klonopin) 0.5 MG TABLET 1 TAB PO BIDP (Reported) Ibuprofen 800 MG TABLET 1 TAB PO TID PRN PAIN [PROLIXIN] 5 MG 5 MG PO BID (Reported) Compliance With Home Meds: UNKNOWN Past History Travel History Traveled to [place] past 21 day No Medical History Neurological: History of Lyme disease 3-4 years ago. EENT: allergies Cardiovascular: NONE Respiratory: childhood asthma (diagnosed age 9 yrs) Gastrointestinal: NONE Hepatic: NONE Renal: NONE Musculoskeletal: plantar fasciitis, right foot. Psychiatric: schizo affective disorder Endocrine: NONE Blood Disorders: NONE Cancer(s): NONE CLOTH DESIGNER/Reproductive: NONE Other Medical Hx: Acne History of MRSA: No History of VRE: No History of CDIFF: No Isolation History: Standard Surgical History Surgical History: appendectomy, Closed reduction of right knee dislocation Past Family/Social History Family History Relations & Conditions if any FATHER (HTN, DM.). MOTHER (HTN.). SISTER (HTN.). Maternal grandfather (Lung cancer). Uncle (CAD s/p stent.). Relation not specified for: *No pertinent family history Psychosocial History Where do you live? Home Who Do You Live With? self Services at Home: None Primary Language: Bengali ETOH Use: denies use Illicit Drug Use: denies illicit drug use Functional Ability ADLs Independent: dressing, eating, toileting, bathing. Ambulation: independent Review of Systems Review of Systems Constitutional: Reports: see HPI. Exam & Diagnostic Data Last 24 Hrs of Vital Signs/I&O Vital Signs Date Time Temp Pulse Resp B/P B/P Pulse O2 O2 Flow FiO2 Mean Ox Delivery Rate 10/04 1228 97.9 67 18 116/76 96 Room Air 10/04 1041 97.9 72 18 119/71 100 Room Air 10/04 0623 98.2 86 16 122/67 99 Room Air 10/03 2050 98.1 76 18 132/84 97 Room Air Intake & Output 10/04 1600 10/04 0800 10/04 0000 Intake Total 240 Output Total Balance 240 Intake, Oral 240 Patient 160 lb 160 lb Weight Weight Reported by Patient Measurement Method Physical Exam General Appearance Alert, Oriented X3, Cooperative, No Acute Distress Skin No Rashes, No Breakdown, poor hygiene. HEENT PERRLA, EOMI, Mucous Membr. moist/pink Neck Supple, No JVD, No thryomegaly, +2 Carotid Pulse wo Bruit, No LAD Lymphatic Axillary nl, Cervical nl Cardiovascular Regular Rate, No Murmurs Lungs decreased breath sounds Abdomen Soft, No Tenderness, No Hepatospenomegaly Neurological Exam Findings: Normal Gait, Normal Speech, Strength at 5/5 X4 Ext, Normal Tone, Sensation Intact, Cranial Nerves 3-12 NL, Reflexes 2+ Cranial Nerves II through XII: Intact Extremities No Edema, Normal Pulses Vascular Normal Pulses, Pulses Symmetrical Last 24 Hrs of Labs/Rusty: Laboratory Tests 10/04/17 0859: Urine Opiates Screen < 100, Methadone Screen < 40, Barbiturate Screen < 60, Ur Phencyclidine Scrn < 6.00, Amphetamines Screen 115, U Benzodiazepines Scrn < 85, Urine Cocaine Screen < 50, Urine Cannabis Screen > 80.00 H, Urinalysis LIGHT H , Urine Color YEL, Urine Clarity HAZY H, Urine pH 6.0, Ur Specific [place] 1.025, Urine Protein NEG, Urine Ketones NEG, Urine Nitrite NEG, Urine Bilirubin NEG, Urine Urobilinogen 0.2, Ur Leukocyte Esterase NEG, Ur Microscopic SEDIMENT EXAMINED, Urine RBC 3-5, Urine WBC 1-3 H, Ur Epithelial Cells RARE, Urine Crystals RARE CA OX, Urine Bacteria FEW H, Urine Mucus MANY H, Urine Hemoglobin NEG, Urine Glucose NEG 10/03/172056: Anion Gap 12, Estimated GFR > 60, BUN/Creatinine Ratio 22.5, Glucose 129 H, Calcium 9.2, Total Bilirubin 0.6, AST 38, ALT 31, Alkaline Phosphatase 59, Total Protein 6.4, Albumin 4.0, Globulin 2.4, Albumin/Globulin Ratio 1.7, CBC w Diff NO MAN DIFF REQ, RBC 4.31 L, MCV 86.4, MCH 28.8, MCHC 33.3, RDW 14.2, MPV 9.9, Gran % 61.4, Lymphocytes % 27.8, Monocytes % 7.0, Eosinophils % 3.5, Basophils % 0.3, Absolute Granulocytes 5.6, Absolute Lymphocytes 2.5, Absolute Monocytes 0.6 , Absolute Eosinophils 0.3, Absolute Basophils 0, Serum Alcohol < 10.0 10/03/172048: Methadone Screen Cancelled, Barbiturate Screen Cancelled, Ur Phencyclidine Scrn Cancelled, Amphetamines Screen Cancelled, U Benzodiazepines Scrn Cancelled, Urine Cocaine Screen Cancelled, Urine Cannabis Screen Cancelled, Urine Color Cancelled, Urine Clarity Cancelled, Urine pH Cancelled, Ur Specific [place] Cancelled, Urine Protein Cancelled, Urine Ketones Cancelled, Urine Nitrite Cancelled, Urine Bilirubin Cancelled, Urine Urobilinogen Cancelled, Ur Leukocyte Esterase Cancelled, Ur Microscopic Cancelled, Urine Hemoglobin Cancelled, Urine Glucose Cancelled Assessment/Plan As Ranked By This Provider Problem List: 1. Schizoaffective disorder Miscellaneous Miscellaneous Documentation Attending Case Discussed With: Xander Mays MD Primary Care Physician: Kaden Velazquez MD Patient sees these Specialists Psychiatry Level of Patient Care: [facility] Consults Needed: Consulting Specialty: Psychiatry Consulting Physician: Dr Mays Reason for Consult: Schizoaffective disorder
[2017-10-04 16:25] VITALS: BP 124/72
[2017-10-04 19:24] VITALS: BP 138/64
[2017-10-05 08:02] VITALS: BP 134/66
--- NOTE | 2017-10-05 08:57 | CPS PROVIDER INIT ASMT PSYCH ---
Psychiatric Admission Windows Desktop Engineer's Note Reviewed: Yes Patient Seen and Examined: Yes Identifying Information: The patient is a 37-year-old single white male Chief Complaint: "My parents had concerns so they called the police." Reaction to Hospitalization: The patient seems to have been taken by surprise to find the police at home when he came back from his walk however he seems to be accepting of the fact that he is on the inpatient psychiatric unit and was not agitated about it. History of Present Illness Onset of Illness: Reportedly the patient's parents had some concerns about his behavior and called the police. He reported that when he took a walk and when he came back the police were at home. In the crisis area he was unable to offer any particular reasons why with his parents called the police. He lives with his parents an [facility]. The patient does have relatively long history of schizophrenia spectrum disorder more recently he has been attending his treatment at [facility] and he sees Lily Bazzi APRN The patient's last hospitalization at [facility]'s inpatient psychiatric unit was in October 2016 Circumstances Leading to Admission: The patient seems to have been displaying some disorganized behaviors and it seems that he might be experiencing an acute psychotic decompensation of his chronic condition. Problem(s) Justifying Need for Admission: Acute psychotic decompensation of her schizophrenia spectrum disorder Other HPI: The patient has been using marijuana but minimizes how much and how often Past Psychiatric History Past Diagnosis(es)- if any: Schizophrenia spectrum disorder most likely chronic paranoid schizophrenia The patient has also been given a diagnosis of schizoaffective disorder, bipolar type Past Precipitating Factors- if any: Noncompliance with medications as well as cannabis use - Include inpatient and outpatient treatment Treatment History: Most recently has been attending [facility] outpatient and see his Elif mendez APRN His most recent admission at [facility] was October 2016 --multiple prior inpatient psychiatric hopsitalization on [facility], [place] and other hospital (last [facility], 10/15/16-10/21/16). --prior IOP/OPS --discharged from [facility] on 10/31/16 for dissruptive bx History of Suicide Attempts or Gestures Pt denies. Per chart, review, his former ex-girlfriend believed that he intentionally self-injured himself with a knife in a suicidal gesture. Substance Abuse History: Chronic cannabis use Denies alcohol or other substances Tobacco use disorder Allergies: Coded Allergies: NO KNOWN ALLERGIES (08/11/12) Home Med List: Klonopin half a milligram twice daily and Prolixin 5 mg twice daily - Include any medical condition(s) that may - impact the patient's recovery/remission Past Medical History: The patient reported that he has had Lyme disease around 2012 or so Past History Medical History Neurological: History of Lyme disease 3-4 years ago. EENT: allergies Cardiovascular: NONE Respiratory: childhood asthma (diagnosed age 9 yrs) Gastrointestinal: NONE Hepatic: NONE Renal: NONE Musculoskeletal: plantar fasciitis, right foot. Psychiatric: schizo affective disorder Endocrine: NONE Blood Disorders: NONE Cancer(s): NONE SKIVER BOX TOE/Reproductive: NONE Other Medical Hx: Acne History of MRSA: No History of VRE: No History of CDIFF: No Isolation History: Standard Surgical History Surgical History: appendectomy Psychiatric Family/Social Hx Family History Psychiatric Illness: He denied that there is psychiatric illness in his family Substance Use: He denied that there is substance use in his family Suicides: He denied suicides among his blood relatives Social History Living Situation: Lives with his parents an [place] Significant Relationships (family/friends): His parents Education: a Bachelor's degree in Physics from [employer] in [employer]. Vocation/Occupation: Unemployed Legal: He denied any legal entanglements, denied history of incarcerations Healthly Behaviors Screening Tobacco Screening Tobacco Use from ED Docu: Current Daily Use Daily Tobacco Use Amount/Type: => 5 Cigarettes daily - If tobacco counseling indicated - the following topics are required. - #1 Recognizing dangerous situations. - #2 Coping Skills. - #3 Basic information about quitting. Status of Tobacco Cessation Counseling: Counseling Refused Cessation Med Status Pt Refused Cessation Meds Alcohol Screening - ETOH screen POS if BAL >=80 or Audit-C>= M4/F3 Audit-C Score from Diag Assess: 0 Blood Alcohol Level: Laboratory Tests 10/03 2056 Toxicology Serum Alcohol (<10 MG/DL) < 10.0 Alcohol Use Screening Results: Neg per Audit C &/or BAL - If ETOH counseling indicated - the following topics are required. - #1 Express concern about the patient's - drinking at unhealthy levels, include informing - of national norms for moderate drinking: - men <= 14 drinks/week, max 4 drinks/occasion - women <= 7 drinks/week, max 3 drinks/occasion - #2 Providing feedback, including linking alcohol to - negative physical effects (liver injury, hypertension) - negative emotional effects (relationship problems and - depression) - negative occupational consequences (reduced work - performance) - #3 Advising the patient to abstain from alcohol or - to drink below national norms for moderate drinking - (as listed above). Status of ETOH Use Counseling: N/A B/C NO ETOH Use Metabolic Screening - Screen if on a Neuroleptic Medication - Metabolic screening should include: - Blood Pressure, BMI, Glucose or Hgb A1c, & a - Lipid profile from within the past 365 days. Metabolic Screening Patient on a neuroleptic(s) . Enter below results for Hemoglobin A1C, and lipid panel if obtained during the last 365 days. BMI: 22.900 Blood Pressure: 134/66 Laboratory Results From [facility] (If applicable): Lab Cholesterol 156 MG/DL 02/21/16 0650 Cholesterol/HDL Ratio 2 % 02/21/16 0650 HDL Cholesterol 85 mg/dL H 02/21/16 0650 Hemoglobin A1c 5.7 % 02/21/16 0650 LDL Cholesterol, Calc 55 mg/dL L 02/21/16 0650 Triglycerides 83 mg/dL 02/21/16 0650 Exam and Plan Mental Status Examination Ambulation Status: The patient was steady on his feet Appearance: Slightly disheveled, malodorous Attitude towards examiner: Cooperative and calm Psychomotor activity: Normal psychomotor activity Behavior: No abnormal or bizarre behaviors Quality of speech: Reduced rate and quantity Affect: Flat Mood: Denied feeling depressed, acknowledged feeling anxious Suicidal Ideation: Denied thinking of suicide Homicidal Ideation: Denied violent thoughts or thinking of homicide Hallucinations: He denied hallucinations Paranoid/Delusional Material: He denied feeling paranoid, there were no specific delusions during the interview, however, he did not speak in long sentences he would answer in 1 or 2 words, so his thought process and thought content remains difficult to it technical support specialist Difficulties with thought organization: He did not seem to have difficulties with thought organization Insight: Poor Judgment: Poor Orientation: He was alert and oriented to time, place, and person. Cognition: Did not seem to have difficulties with attention and concentration during the interview. Memory Function: Did not seem to have any gross difficulties with short-term memory during the interview. Estimate of intellectual functioning: Average Assets/Strengths Patient Identified Assets/Strengths: The patient is intelligent, he has supportive parents, and in a way likable Impression/Plan Impression and Plan: 37-year-old single white male who presents with an acute psychotic decompensation of chronic schizophrenia paranoid type. He claims that he has been taking his medications as prescribed. He claims that he has been smoking minimal amount of cannabis - Include all active medical diagnosis that require tx DSM 5 Diagnosis(es): Schizophrenia, in acute exacerbation, paranoid type Cannabis use disorder, mild - Initial Tx Plan for Active Psych & Medical Conditions Treatment Plan: Inpatient psychiatric care with safety checks every 15 minutes and Continue fluphenazine 5 mg twice daily Change Klonopin to 1.5 mg at bedtime Continue as needed doses of Klonopin 0.5 mg for anxiety agitation or insomnia - Factors that would help patient function - in a less restrictive setting. Factors: The patient would be discharged once his psychotic symptoms are under better control
--- NOTE | 2017-10-05 11:37 | ED PSY CRISIS COLLATERAL NOTE ---
See Addendum Collateral Note Collateral Note Family/Inform/Octaviano Contacts: Authorization obtained from [facility] for Dominik Roque. Auth x 6 days, 10-04-17 through 10-09-17, with review due on 10-10-17 with Jesika , Call back number is [phone], [id number] Auth # is [id number]
[2017-10-05 12:10] VITALS: BP 127/74
[2017-10-05 15:27] VITALS: BP 136/73
--- NOTE | 2017-10-05 17:57 | SOCIAL WORKER PROG NOTE PSYCH ---
Social Work Progress Note Progress Note This conventional mortgage underwriter met with patient. He was lying in bed and refused to sit up. Patient stated that he was unsure of the reason for admission and stated that the police were called "because that's what you do around here." Patient was informed that this conventional mortgage underwriter did not call the police - he was unable to provide any information on why he might be in the hospital. Patient stated that he goes to [facility] for outpatient treatment where he sees Emeli Wood APRN for medication management, Mikael for case management and Verito Jenkins for individual therapy. Patient signed SHEKHAR's for his parents and [facility]. He refused to sign an SHEKHAR for VCA or CCT. Patient was malodorous. He denied any difficulties with ADL's. He denied SI/HI/AH/VH. Patient stated that he will not be returning home to his parents upon discharge and plans to call [facility] for shelters and stay with "some people" while waiting for a group home bed.
[2017-10-05 20:28] VITALS: BP 132/76
--- NOTE | 2017-10-06 10:17 | CP SOUTH PROGRESS NOTE PSYCH ---
Psych (Inpt) Progress Note Progress Note Vital Signs Date Time Temp Pulse Resp B/P B/P Pulse O2 O2 Flow FiO2 10/06 1225 48 125/67 10/058 97.7 60 132/76 10/05 1527 65 136/73 Mental Status Examination The patient was steady on his feet, he was slightly disheveled and malodorous He was calm and marginally cooperative, normal psychomotor activity No abnormal or bizarre behaviors, speech was reduced rate and quantity Flat affect, denied feeling depressed, acknowledged feeling anxious Denied thinking of suicide, denied violent thoughts or thinking of homicide He denied hallucinations, denied feeling paranoid, there were no specific delusions during the interview, however, he did not speak in long sentences he would answer in 1 or 2 words (thought process and thought content remains difficult to head waiter). Poor insight, poor judgment. He was alert and oriented to time, place, and person. He did not seem to have difficulties with attention and concentration during the interview. Did not seem to have any gross difficulties with short-term memory during the interview. Assessment: Dominik Roque is a 37-year-old Single white male who presents with an acute psychotic decompensation of chronic schizophrenia, paranoid type. He claims that he has been taking his medications as prescribed. He claims that he has been smoking minimal amount of cannabis Diagnosis(es): Schizophrenia, in acute exacerbation, paranoid type Cannabis use disorder, mild Treatment Plan: Change fluphenazine to liquid (5 mg twice daily Change Klonopin to 0.5 mg in AM and 1 mg at bedtime Continue as needed doses of Klonopin 0.5 mg for anxiety agitation or insomnia Schizophrenia, in acute exacerbation, paranoid type Cannabis use disorder, mild - Initial Tx Plan for Active Psych & Medical Conditions Treatment Plan: Inpatient psychiatric care with safety checks every 15 minutes and Continue fluphenazine 5 mg twice daily Change Klonopin to 1.5 mg at bedtime Continue as needed doses of Klonopin 0.5 mg for anxiety agitation or insomnia
[2017-10-06 12:25] VITALS: BP 125/67
--- NOTE | 2017-10-06 13:57 | SOCIAL WORKER SOCIAL HX PSYCH ---
Social History Basic Assessment Insurance Authorization: Insurance #1: Insurance name: [facility] Phone number: Policy number: [id number] Group number: [id number] Authorization number: Curr Source of Income/Entitlements: SSDI Present Problem: The following was obtained from the diagnosic assessment by Jhonatan Arango. Present Illness: Pt is a 37 year old white male BIBA from his home to [place]'s ED. Pt's parents were concerned over pt's behavior and called the police. Upon evaluation pt stated that he went out for a walk yesterday and when he got home the police were there. Pt was unable to offer any reason for his parents decision to call the police. Pt stated that he lives with his parents in [place]. Pt stated that he has a high school diploma and a Bachelor's degree in Physics from [employer] in [facility] [employer]. Pt stated that he does not have an employment history. Pt enjoys walking, reading and listening to music. He frequently takes walks in [place] [facility]. Clinician was able to speak with pt's parents Brandin by phone. Parents expressed concern over pt's recent behavior. They stated that he has been acting "manicky" over the past few days. They said he "races around" and seems to becoming progressively worse. Father stated that pt has been "off the wall" and talking to himself. They stated that pt spends a lot of time in the basement and has a bedroom upstairs. They described that the areas pt stays in are a complete mess. They also described hoarding and ritualistic behavior. They haven't seen any clear suicidal or aggressive behavior but are worried he will "do something". They stated that they don't trust him claiming that he is "scary". He talks very little and they feel he is unpredictable. They explained that they dispense his medications but feel he may be cheeking the meds as he did in the past. He has consistently refused IM medications in the past. Parents also stated that at this point they are going to refuse him back into the home. Pt is currently being treated at [facility] and stated that he sees therapist Verito Jenkins and Lily for medication management. Pt also stated that he has a follow up appointment with Lily this coming Monday. Patient stated that he is taking Prolixin 5 mg BID and Klonopin .5 mg BID. He claimed that he has been compliant with his medications which his parents question. Pt's mother stated that pt has had numerous inpatient hospitalizations in the past. She stated that since this past November pt has had three admissions. Pt stated that he has a Schizophrenia diagnosis. Pt denied any history of or current alcohol or illicit substance use. However, his UDS came back positive for marijuana. Pt and parents denied any history of substance abuse treatment. Pt was alert and oriented. He was cooperative with the evaluation process. There was no irritability or agitation noted. He was unable to clearly explain as to why he believed his parents called the police and sent him to the ED. He was not a reliable informant. Pt's mood and affect were flat and somewhat guarded/paranoid. Eye contact was wnl. He denied any AH/VH. He also denied any paranoia or delusions. Given pt's unpredictable behavior, parent's safety concerns and pt's chronic psychiatric history and medication noncompliance he is considered at heightened risk for possible harm to self and or others. Pt's current needs meet an inpatient level of care which is recommended at this time. The [facility] psychiatrist was consulted and the pt agreed to sign a voluntary admission. Clinician also called [facility] and left a voice message for Verito Davidaliviawest informing her of the pending inpatient admission. Shortly thereafter, Fina from [facility] returned the call. Report was given and Monday's appointment at [facility] was cancelled. Primary Language? Ugandan Language(s) Spoken At Home: Ugandan Living Situation Other Living Arrangement: relative's/guardian's libertad Feel Safe Where You Are Living Yes Allergies - Coded Allergies: NO KNOWN ALLERGIES (08/11/12) Current Medications - Scheduled Medications Clonazepam (Klonopin) 0.5 MG TABLET 1 TAB PO BIDP (Reported) Entered as Reported by Marielena Gill on 06/22/17 0137 [PROLIXIN] 5 MG 5 MG PO BID (Reported) Entered as Reported by Marielena Gill on 06/22/17 0138 Scheduled PRN Medications Ibuprofen 800 MG TABLET 1 TAB PO TID PRN PAIN #20 TAB Prescribed by Juana Rey MD on 06/22/17 Past History Past Medical History Neurological: History of Lyme disease 3-4 years ago. EENT: allergies Cardiovascular: NONE Respiratory: childhood asthma (diagnosed age 9 yrs) Gastrointestinal: NONE Hepatic: NONE Renal: NONE Musculoskeletal: plantar fasciitis, right foot. 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 No Mother's Age (Current/): 60 Relationship w/Mother: He states that he never talks to her Father's Age (Current/): 60 Relationship w/Father: The patient reports that he never talks to his father Any Sibling(s)? Yes Sibling's Gender(s)/Age(s): female Sibling 1: (37) Relationship w/Sibling(s): He states that he does not have a relationship with his sister, noting that she resides in [place] and that they text occasionally. Relationship w/Friends: He states that he does have friend and that those relationship are "very good." Family Psych/Sub Abuse/Add Hx: None Abuse/Trauma History Trauma History/Current Trauma: Denies Patient's Age at Time of Trauma: 0 History of Trauma/Abuse Treatment? No Abuse/Trauma Treatment: none Legal History Legal Guardian/Address/Phone: Self Current Legal Status: none Pending Court Dates: none Have you ever been arrested No Number of Arrests: 0 Hx of Juvenile Legal Charges? No Hx of Adult Legal Charges? Yes If Yes: The patient states that he has been arrested on 2-3 occasions and that one was at "the [facility] in [facility], because the secretary to the vice president was harrassing him." List/Date Most Recent Lgl Chgs: The patient states "that was 13 years ago in [place]." Chgs/Dts/Incarcerations/Sentnc Unknown Civil Proceedings: N/A Domestic Relations Court: N/A Child Protective Serv Involvmnt N/A Buddhist Monk Denied Psychosocial History Primary Support System: " I support myself." The patient does state that his fish are his best friends. Strengths/Capabilities: The patient does appear to have supportive parents and is on social security disability. Weaknesses: isolative and limited support. Physical Limitations (Interventions): Per history- Ambulatory, but demonstrates a limp, favoring his right foot. Last Physical: 2016 History of Seizures? No History of Blackouts? No Last Blackout: N/A ADL Limitations: None noted Mar Lin/Social/Peer Relations The patient reports that he does have some friends and that those relationships are "very good." Meaningful Activities: Reading books, hiking, music, writting, going to the beach or going to the [place]. Childhood Yazidism: no quaker stated Current Orthodox Affiliation: no quaker stated Is Spirituality Important to You? "no" Patient's Ethnicity: "white" would not elaborate. Cultural/Ethnic Issues: None noted Are There Developmental Issues? No Milestones Achieved: WNL Psychiatric Treatment History Psych Treatment Inpatient Treatment Yes Outpatient Treatment Yes Location of Treatment [facility], [place], [place], [facility] Reason for Treatment Chronic mental illness/psychosis Dates of Treatment [facility]-current, multiple inpatient hospitalizations. Response to Treatment History of medication noncompliance. Treatment of Prior Episodes: The patient states that he has been in multiple treament episodes, however would not disclose them. Diagnosis: schizoaffective disorder Psychodynamic Issues: Chronic Mental Health issues Risk Factors: SA/MH hospitalized, isolate/no social support, male Substance Use/Abuse History Drug Use/Abuse:Min 12 mo hx Substance Used/Abused No History First Use n/a Last Used n/a How much used/taken n/a How often n/a For how long n/a Route of use n/a Relapse History? No Have You Ever Attended AA? No Do You Attend AA Currently? No Do You Have a Sponsor? No Substance Abuse Treatment Substance Abuse Treatment Inpatient Treatment No Outpatient Treatment No Sexual History Sexually Active No # of partners 0 Sexual Concerns: * Per records, his ex-girlfriend has noted that he can be sexually inappropriate in public. Education History Highest Level of Education: bachelor's degree Highest Grade Completed: College Bachelors in Physics and [employer] Vocational Year Completed: N/A Number of College Years: 4 College Degree/Major: Physics and [place] BS Other Degree(s): Pt stated he got into [employer] for Masters but did not go HX of Learning Difficulties: None reported Barriers to Learning: None reported Special Communication Needs: None reported Employment History Employment Unemployed Not in Labor Force: Disabled No. of Jobs in Last 5 Years: 0 Attendance: N/A Comments: N/A History Have You Been in The ? No If Yes, Explain: N/A Type of Discharge: N/A Date of Discharge: N/A Current Mental Status Mental Status Orientation: Person, Place, Situation Affect: Blunted, Flat Speech: WNL Neuro-vegetative: WNL Appearance Appearance- Dress/Hygiene: Pt dressed in his clothing. Hygiene appears wnl. Behaviors Thought Process: WNL Thought Content: Paranoid (guarded/paranoid) Memory: Impaired Insight: Fair SI/HI Risk Assessment Past Suicidal Ideation/Attempts No Current Suicidal Ideation/Att No Past Homicidal Ideation/Att: No Current Homicidal Ideation/Attempts No Degree of Intent: None Danger To: Others, Self Gravely Disabled: Lack of Insight, Poor Judgment Risk Factors: Hx of violence, Isolated/no social suppor, Male, Poor impulse control Lethality Ratin - Conclusion and Recommendations for treatment - and discharge planning Summary: This social history was obtained by Crisis internet marketing consultant Leila Maloney. Pt did not want to elaborate on what was asked and engaged enough to answer the questoins in one word.
[2017-10-06 15:57] VITALS: BP 126/70
--- NOTE | 2017-10-06 17:42 | SOCIAL WORKER PROG NOTE PSYCH ---
Social Work Progress Note Progress Note This appeals writer met with patient. He was in bed, refusing to sit up or get out of bed, however, agreed to having a conversation. Patient stated that he cannot return to his parents house and has called [address] about shelters. He stated that he plans to call 211 again once he is informed of his discharge date so he can schedule a CAN assessment. Patient was also interested in a referral to the [facility]. Patient stated that he would like to return to his parents home in order to clean up the basement "to how my dad wants it." He stated that he would like his parents to bring clothing to . This appeals writer encouraged him to call his parents regarding the request. Patient reported normal sleep and appetite. He first stated that he does not often brush his teeth and later stated that he does so daily. He stated that he has not showered in a few days. It did not appear that he had intention of showering. Patient was agreeable toa family meeting with his parents. He denied SI/HI/AH/ VH. This appeals writer called the patient's parents, Janelle and James, in interest of scheduling a meeting. They refused to do so "until he's better." Patient's parents struggled to define "better", however described the patient's behavior prior to admission: no communication, hoarding, talking to himself, manic behavior at times, "rituals" (did not expand). Mr. Roque stated that the patient would not take his medications and that Mr. Roque found pills in a jar in his room - "a couple hundred." He stated that the patient has not contacted them since he has been in the hospital. Mr. Roque requested that this appeals writer speak with [facility]. A vm was left for Fina at [facility] ([phone]) with a call back number. Regarding patient's insurance, this appeals writer confirmed that his review date for [place] (carve out for [employer]) is 10/10/17 with [facility] ([phone], ext. [phone]).
[2017-10-06 20:05] VITALS: BP 132/60
[2017-10-07 07:55] VITALS: BP 128/89
--- NOTE | 2017-10-07 12:06 | CP SOUTH PROGRESS NOTE PSYCH ---
Psych (Inpt) Progress Note Progress Note Include the following elements, when applicable: Involvement in the active treatment of the patient with behavioral observations of the patient and the patient's response to the treatment. Review of the ongoing treatment process in the context of the treatment plan. Indication of how multi-disciplinary staff members are carrying out the treatment plan. Plans for future interventions and recommendations for revision of the treatment plan. Liaison with other physicians/providers. Progress Note: Pt found sitting in corner of his room writing very long list. Very irritable and suspicious when approached. Denies psychotic sx and denied SI or HI. Current Medications Sig/Fran Start time Last Medication Dose Route Stop Time Status Admin Acetaminophen 650 MG Q4P PRN 10/04 1345 AC PO Al Hydroxide/Mg 30 ML Q4-6 PRN PRN 10/04 1345 AC Hydroxide PO Benztropine Mesylate 1 MG Q6P PRN 10/04 1345 AC PO Clonazepam 1 MG AT BEDTIME 10/06 2100 AC 10/06 PO 10/11 2059 2106 Clonazepam 0.5 MG DAILY 10/06 1025 AC 10/07 PO 10/13 1024 1100 Clonazepam 0.5 MG Q6P PRN 10/05 0915 AC PO 10/11 1359 Fluphenazine 5 MG 0800,10/06 2000 AC 10/07 Enanthate PO 1059 Haloperidol 5 MG Q6P PRN 10/04 1345 AC PO Ibuprofen 600 MG Q4P PRN 10/04 1400 AC PO Lorazepam 2 MG Q6P PRN 10/04 1345 AC PO Magnesium Hydroxide 30 ML AT BEDTIME PRN 10/04 1345 AC PO Vital Signs Date Time Temp Pulse Resp B/P B/P Pulse O2 O2 Flow FiO2 Mean Ox Delivery Rate 10/07 075 97.8 84 128/89 10/06 2004 97.1 60 132/60 10/06 1557 63 126/70 10/06 1225 48 125/67 MSE General appearance: poor hygiene and grooming; Attitude: cooperative to a very limited degree; Eye contact: staring; Movement: no psychomotor agitation or slowing; Speech: nl fluency, nl rate/rhythm, nl volume, nl prosody; Mood: "fine" Affect: irritable, flat, appropriate, constricted, non-labile, congruent; Thought process: linear and goal-directed, slowed, bizzare; Thought content: denied SI or HI, ? ++ paranoid ideation; Perception: denied hallucinations- auditory, visual, + appear to be responding to internal stimuli; I/J: limited A/P: Pt with SAD with hx of medication noncpmliance with some limited response to medications thus far. -Continue current medication regimen -Encourage integration into the milieu
[2017-10-07 17:01] VITALS: BP 141/81
[2017-10-07 20:10] VITALS: BP 135/68
--- NOTE | 2017-10-08 11:55 | CP SOUTH PROGRESS NOTE PSYCH ---
Psych (Inpt) Progress Note Progress Note Include the following elements, when applicable: Involvement in the active treatment of the patient with behavioral observations of the patient and the patient's response to the treatment. Review of the ongoing treatment process in the context of the treatment plan. Indication of how multi-disciplinary staff members are carrying out the treatment plan. Plans for future interventions and recommendations for revision of the treatment plan. Liaison with other physicians/providers. Progress Note: Pt notes that "working on stuff." Declined to give further details. Very suspicious. Denies SI or HI. Denied psychotic sx. Current Medications Sig/Fran Start time Last Medication Dose Route Stop Time Status Admin Acetaminophen 650 MG Q4P PRN 10/04 1345 AC PO Al Hydroxide/Mg 30 ML Q4-6 PRN PRN 10/04 1345 AC Hydroxide PO Benztropine Mesylate 1 MG Q6P PRN 10/04 1345 AC PO Clonazepam 1 MG AT BEDTIME 10/06 2100 AC 10/07 PO 10/11 2059 2158 Clonazepam 0.5 MG DAILY 10/06 1025 AC 10/08 PO 10/13 1024 1027 Clonazepam 0.5 MG Q6P PRN 10/05 0915 AC PO 10/11 1359 Fluphenazine 5 MG 0800,10/06 2000 AC 10/08 Enanthate PO 1030 Haloperidol 5 MG Q6P PRN 10/04 1345 AC PO Ibuprofen 600 MG Q4P PRN 10/04 1400 AC PO Lorazepam 2 MG Q6P PRN 10/04 1345 AC PO Magnesium Hydroxide 30 ML AT BEDTIME PRN 10/04 1345 AC PO Vital Signs Date Time Temp Pulse Resp B/P B/P Pulse O2 O2 Flow FiO2 Mean Ox Delivery Rate 10/07 2009 96.3 81 135/68 10/07 1701 70 141/81 MSE General appearance: poor hygiene and grooming; Attitude: cooperative to a very limited degree; Eye contact: staring; Movement: no psychomotor agitation or slowing; Speech: nl fluency, nl rate/rhythm, nl volume, nl prosody; Mood: "fine" Affect: irritable, flat, appropriate, constricted, non-labile, congruent; Thought process: linear and goal-directed, slowed, very bizzare; Thought content: denied SI or HI, ? ++ paranoid ideation; Perception: denied hallucinations- auditory, visual, + appear to be responding to internal stimuli; I/J: limited A/P: Pt with SAD with hx of medication noncpmliance with some limited response to medications thus far. -Continue current medication regimen -Encourage integration into the milieu
[2017-10-08 12:25] VITALS: BP 111/62
[2017-10-08 15:46] VITALS: BP 127/62
[2017-10-08 19:52] VITALS: BP 124/69
[2017-10-09 08:37] VITALS: BP 114/67
--- NOTE | 2017-10-09 09:10 | CP SOUTH PROGRESS NOTE PSYCH ---
Psych (Inpt) Progress Note Progress Note I reviewed Dr. Chloé Hampton MD's notes from and Monday (10/07 and 2017). Vital Signs Date Time Temp Pulse Resp B/P B/P Pulse O2 O2 Flow FiO2 10/09 1222 82 128/58 10/09 0837 97.2 65 114/67 10/08 1952 96.5 79 124/69 10/08 1546 68 127/62 Mental Status Examination Dominik was alert and oriented to time, place, and person. He was steady on his feet, he was slightly disheveled and malodorous. He was calm and marginally cooperative. He showed normal psychomotor activity. There were no abnormal or bizarre behaviors, his speech was reduced in rate and quantity. His affect was flat. He denied feeling depressed, denied thinking of suicide, and denied violent thoughts or thinking of homicide. He denied hallucinations, denied feeling paranoid, there were no specific delusions during the interview, however , thought process and thought content remains difficult to research worker kitchen as he speaks very tersely. He did not seem to have difficulties with attention and concentration during the interview and did not seem to have any gross difficulties with short-term memory during the interview. Assessment: Dominik Roque is a 37-year-old Single white male who presents with an acute psychotic decompensation of chronic schizophrenia, paranoid type. He claims that he has been taking his medications as prescribed. He claims that he has been smoking minimal amount of cannabis Diagnoses: Schizophrenia, in acute exacerbation, paranoid type Cannabis use disorder, mild Treatment Plan Update: Continue fluphenazine liquid (5 mg twice daily Continue Klonopin 0.5 mg in AM and 1 mg at bedtime Continue PRN Klonopin 0.5 mg for anxiety agitation or insomnia
[2017-10-09 12:22] VITALS: BP 128/58
--- NOTE | 2017-10-09 15:25 | SOCIAL WORKER PROG NOTE PSYCH ---
Social Work Progress Note Progress Note Determination Status: PENDED The services requested require additional review. You will be contacted regarding the status of this request if further information is needed. An authorization decision will be made within the required timeframes and details of that decision may be found under the member's authorization history. Member Name Member ID Member Subscriber Name Subscriber ID RYDER CLEMONS [id number] 1980 RYDER CLEMONS [id number] Pended Authorization # Client Authorization # Type of Request [id number] CONCURRENT Date of Admission/ Start of Services Requested From Submission Date 10/04/2017 10/09/2017 10/09/2017 Level of Service Type of Service Level of Care Type of Care INPATIENT/[facility] MENTAL HEALTH [facility]IENT [facility]IENT [facility] Reason Code P76 Provider Name & Address Provider ID Provider Alternate ID NPI # for Authorization HUSEYIN MCGRATH [address] [place] [id number]
[2017-10-09 15:47] VITALS: BP 132/65
--- NOTE | 2017-10-09 17:28 | SOCIAL WORKER PROG NOTE PSYCH ---
Social Work Progress Note Progress Note This copywriter met with patient. He reported his mood as "good" and denied SI/HI/ AH/VH. Patient stated that he has plans not to return to his parent's home after discharge and will utilize the correction system. He stated that he would like to meet with his parents to discuss moving out, obtaining his beloningings and assisting his father in cleaning up the basement. Pateint reported no difficulty with ADL's and stated that he has good sleep and appetite. This copywriter spoke with Fina at [facility]. She stated that the patient may return to their IOP upon discharge. This copywriter spoke with patient's parents in response to their vm in which they were inquiring about the time of the family meeting. Patient's parents were reminded that they refused the meeting when we spoke on Monday. It was still unclear as to whether or not they would like a meeting. They also stated that they are interested in conservatorship.
[2017-10-09 19:45] VITALS: BP 125/69
[2017-10-10 07:56] VITALS: BP 120/76
--- NOTE | 2017-10-10 08:44 | CP SOUTH PROGRESS NOTE PSYCH ---
Psych (Inpt) Progress Note Progress Note The treatment team discussed the patient's progress, treatment plan, and aftercare plans. The treatment team included: PLASTIC SURGERY ASSISTANT, RNs, Group Therapy staff, and psychiatrist. Vital Signs Date Time Temp Pulse B/P 10/09 1222 82 128/58 10/09 0837 97.2 65 114/67 10/08 1952 96.5 79 124/69 Mental Status Examination: Dominik was alert and oriented to time, place, and person. He was calm and cooperative. He showed normal psychomotor activity. There were no abnormal or bizarre behaviors, his speech was reduced in rate and quantity. His affect was flat but he denied feeling depressed, denied thinking of suicide, and denied violent thoughts or thinking of homicide. 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 He did not seem to have difficulties with attention and concentration during the interview. Assessment: Dominik Roque is a 37-year-old Single White male who was admitted to the inpatient unit on 10/04/2017 after he presented with an acute psychotic decompensation of chronic schizophrenia, paranoid type. He claims that he has been taking his medications as prescribed. He claims that he has been smoking minimal amounts of cannabis. Dominik showed reasonable improvement so far Diagnoses: Schizophrenia, in acute exacerbation, paranoid type Cannabis use disorder, mild Treatment Plan Update: 1) Continue fluphenazine but change from liquid to crushed tablets in flavored yogurt (5 mg twice daily) 2) Continue Klonopin 0.5 mg in AM and 1 mg at bedtime Continue PRN Klonopin 0.5 mg for anxiety agitation or insomnia
[2017-10-10 11:49] VITALS: BP 125/67
[2017-10-10 15:42] VITALS: BP 130/68
--- NOTE | 2017-10-10 18:56 | SOCIAL WORKER PROG NOTE PSYCH ---
Social Work Progress Note Progress Note This play writer met with patient. He reported his mood as "good" and denied SI/HI/ AH/VH. Patient stated that he has plans not to return to his parent's home after discharge and [facility] the [facility]. He stated that he would like to meet with his parents to discuss moving out, obtaining his beloningings and assisting his father in cleaning up the basement. Pateint reported no difficulty with ADL's and stated that he has good sleep and appetite. This play writer spoke with Fina at [facility]. She stated that the patient may return to their IOP upon discharge. This play writer spoke with patient's parents in response to their vm in which they were inquiring about the time of the family meeting. Patient's parents were reminded that they refused the meeting when we spoke on Monday. It was still unclear as to whether or not they would like a meeting. They also stated that they are interested in conservatorship.
--- NOTE | 2017-10-10 18:58 | SOCIAL WORKER PROG NOTE PSYCH ---
Social Work Progress Note Progress Note This teletypewriter installer met with patient and his rn case management, Juan Valadez. Patient discussed plans to utilize the care home upon discharge for housing and stated that he has friends that he could stay with temprorarily if needed until a bed is available. He stated that he will schedule a CAN assessment once he knows the date of his discharge from [facility]. He stated that he is on the wait list for government housing through [facility]. He was informed of [facility]. While he does not want a referral to be made, he is interested in speaking with [place] at [facility] to learn about the program. He was agreeable to considering [facility], but did not want a referral to their programs at this time either. Patient plans to continue with outpatient services through [facility]. He stated that he does not want injectable medications as they cause increased anxiety and impotence. 3:15pm: A vm was left for Jesika alexander [place] ([facility]) , ext. [phone]) for concurrent review requesting additional days authorized for this admission.
[2017-10-10 19:53] VITALS: BP 129/58
--- NOTE | 2017-10-11 12:26 | CP SOUTH PROGRESS NOTE PSYCH ---
Psych (Inpt) Progress Note Progress Note Diagnoses (Last updated 10/11/2017): F20.9: Schizophrenia, multiple episodes, currently in partial remission Cannabis use disorder, mild The treatment team discussed the Pt's progress, treatment plan, and aftercare plans. The treatment team included: LCSWs, RNs, Group Therapy staff, and psychiatrist. Vital Signs: Temp: 98.3; Pulse: 84/min; B/P: 129/58 mmHg Mental Status Examination: Dominik was calm and cooperative. He said he told Jesika Lundy LCSW to cancel the family meeting with his parents. He feels it is going to be counter- productive and that he has no intention of going back to living with them. Dominik was alert and oriented to time, place, and person. He showed normal psychomotor quantity. There were no abnormal or bizarre behaviors, his speech was reduced in rate and quantity. His affect was flat but he denied feeling depressed, denied thinking of suicide, and denied violent thoughts or thinking of homicide. He denied hallucinations, denied feeling paranoid, there were no specific delusions during the interview. 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 Assessment: Dominik Roque is a 37-year-old Single White Male who was admitted to the inpatient psychiatric unit on 10/04/2017 due to acute psychotic decompensation. He claims that he was taking his medications as prescribed. He claims that he was smoking only minimal amounts of cannabis. Dominik showed reasonable improvement so far since his admission on 10/04/2017. Treatment Plan Update: 1) Change fluphenazine (Prolixin) as of tomorrow 10/12/2017 to 7.5 mg at bedtime (crushed tablets in flavored yogurt 2) Change Klonopin to 1.5 mg at bedtime
[2017-10-11 12:38] VITALS: BP 117/67
[2017-10-11 16:34] VITALS: BP 122/56
--- NOTE | 2017-10-11 18:03 | SOCIAL WORKER PROG NOTE PSYCH ---
Social Work Progress Note Progress Note This display card writer spoke with patient's parents and a family meeting is scheduled for 10/13/17 at 2:15pm. Patient's rn field case manager, Juan Valadez also plans to attend. Parents and Michelle Valadez were informed of possible discharge early next week. During discussion with Juan Palm, yesterday's meeting was summarized: -Patient will speak with [place] regarding [facility] (a vm was left for her at 10:10am ) -Patient plans to call [facility] for a CAN assessment and will stay with a friend if needed until a half-way bed is available -Patient is considering [facility], but not yet agreeable to a referral -Patient refused a [facility] referral -Patient will engage in outpatient services through [facility] after discharge from [facility] -This display card writer will speak with the patient about CCT 11:11am: This display card writer spoke with Fina at [facility] ([phone], ext. [phone]) by phone. She was informed that a family meeting is scheduled for Monday at 2:15, which has been coordinated with Juan Valadez. Fina was informed of possible discharge early next week. She asked that this display card writer discuss IOP with the patient. This display card writer met with patient. He expressed interest in discharging and was informed that a potential discharge date is being considered for early next week. Patient stated that he will discuss this further with Dr. Veliz. Patient was informed of the family meeting date/time and while he was agreeable to a meeting yesterday, he appeared resistant to this today. Patient maintains plans to go to a half-way/live with a friend and attend outpatient at [facility]. He refused to allow this display card writer to contact his friend(s) to confirm with them that he will stay there. He stated that he has been in contact with them during this hospitalization regarding the plans to stay with them. Patient refused a referral to [facility] today. He refused to sign the CCT SHEKHAR ("I don't want people talking about me."). Patient appeared more agitated/irritable today. This was observed with him, which he denied. (Nursing staff also communicated to this display card writer that patient appeared more agitated/irritable today than previous days.) Regarding IOP at [facility], patient stated that he was not interested and would like to continue with individual therapy and medication management (a vm was left for Fina at [facility] regareding this as well as the CCT refusal). Patient denied SI/HI/AH/VH.
[2017-10-11 20:07] VITALS: BP 111/76
[2017-10-11 22:48] VITALS: BP 92/62
[2017-10-11 22:52] VITALS: BP 110/57
[2017-10-12 07:55] VITALS: BP 121/67
[2017-10-12 12:12] VITALS: BP 110/56
--- NOTE | 2017-10-12 13:38 | CP SOUTH PROGRESS NOTE PSYCH ---
Psych (Inpt) Progress Note Progress Note Diagnoses (Last updated 10/11/2017): F20.9: Schizophrenia, multiple episodes, currently in partial remission Cannabis use disorder, mild The treatment team discussed the Pt's progress, treatment plan, and aftercare plans. The treatment team included: LCSWs, RNs, Group Therapy staff, and psychiatrist. Vital Signs: Date Time Temp Pulse B/P B/P Pulse O2 FiO2 10/12 1212 76 110/56 10/12 0755 97.2 69 121/67 10/11 2252 72 110/57 10/11 2249 96.6 10/11 2248 60 92/62 10/11 2006 97.4 72 111/76 Mental Status Examination: Dominik changed his mind and is now willing to have his parents come in for a family meeting. He was calm and cooperative. Dominik was alert and oriented to time, place, and person. He showed normal psychomotor quantity. There were no abnormal or bizarre behaviors, his speech was reduced in rate and quantity. His affect was flat but he denied feeling depressed, denied thinking of suicide, and denied violent thoughts or thinking of homicide. He denied hallucinations, denied feeling paranoid, there were no specific delusions during the interview. His thought process and thought content remain difficult to commercial insurance underwriter (speaks minimally and very tersely with one and 2 word answers to question and virtually no spontaneous speech). Assessment: Dominik Roque is a 37-year-old Single White Male who was admitted to the inpatient psychiatric unit on 10/04/2017 due to acute psychotic decompensation. He claims that he was taking his medications as prescribed. He claims that marijuana use was minimal amounts and not daily. Dominik showed reasonable improvement so far since his admission on 10/04/2017. Today, he said he is agreeable to taking Prolixin Decanoate injection and having family meeting Treatment Plan Update: 1) D/C oral fluphenazine (Prolixin) 2) Fluphenazine Decanoate 25 mg IM today Klonopin 1.5 mg at bedtime
--- NOTE | 2017-10-12 18:36 | SOCIAL WORKER PROG NOTE PSYCH ---
See Addendum Social Work Progress Note Progress Note Patient informed this editorial writer earlier this morning that he was not interested in a family meeting with his parents and that he would like to discharge tomorrow. Therefore, parents were contacted and informed of the cancelled meeting and of patient's request to d/c (message also relayed to Saroj Valadez at [facility]). Parents stated that he would not be able to return home upon discharge and did not feel that he was ready to discharge. Patient later informed this editorial writer that he would like to keep the family meeting and is agreeable to the injection. Patient also stated that he was willing to stay in the hospital through the weekend if needed and hopes to return home to his parents upon discharge. Patient denied SI/HI/AH/VH. This editorial writer informed Dr. Veliz of this discussion and patient's parents and Mikael Valadez were contacted to inform that the meeting was rescheduled for 10/13 at 2:15pm. All were in agreement with the plan to meet. They were also informed of patients agreement to the injection as well as his agreement to stay through the weekend if needed.
--- NOTE | 2017-10-12 19:04 | SOCIAL WORKER PROG NOTE PSYCH ---
Social Work Progress Note Progress Note Determination Status: PENDED The services requested require additional review. You will be contacted regarding the status of this request if further information is needed. An authorization decision will be made within the required timeframes and details of that decision may be found under the member's authorization history. Member Name Member ID Member Subscriber Name Subscriber ID RYDER CLEMONS [id number] 1980 RYDER CLEMONS [id number] Pended Authorization # Client Authorization # Type of Request [id number] CONCURRENT Date of Admission/ Start of Services Requested From Submission Date 10/04/2017 10/12/2017 10/12/2017 Level of Service Type of Service Level of Care Type of Care INPATIENT/[facility] MENTAL HEALTH INPATIENT [facility]PATIENT [facility] - INPATIENT HOSPITAL Reason Code P76 Provider Name & Address Provider ID Provider Alternate ID NPI # for Authorization HUSEYIN MCGRATH [address] [place] [id number]
[2017-10-12 20:20] VITALS: BP 132/67
[2017-10-13 08:20] VITALS: BP 128/55
--- NOTE | 2017-10-13 08:24 | CP SOUTH PROGRESS NOTE PSYCH ---
Psych (Inpt) Progress Note Progress Note Diagnoses (Last updated 10/11/2017): F20.9: Schizophrenia, multiple episodes, currently in partial remission. F12.10: Cannabis Use Disorder, mild Treatment team discussed Pt's progress, treatment plan, and aftercare plans. The treatment team included: LCSWs, RNs, Group & Activity Therapy staff, and psychiatrist. Vital Signs: Date Temp Pulse B/P 10/13 97.3 64 128/55 Mental Status Examination: Dominik was advocating for his own discharge today, he said he feels ready to go home today. He did, in fact, take Prolixin Decanoate injection 25 mg IM yesterday. He was calm and cooperative this morning. Dominik was alert and oriented to time, place, and person. He showed normal psychomotor activity, no dystonia and no abnormal or bizarre behaviors. Dominik's speech was reduced in rate and quantity. His affect was flat but he denied feeling depressed, denied thinking of suicide, and denied violent thoughts or thinking of homicide. He denied hallucinations, denied feeling paranoid, there were no specific delusions during the interview. His thought process and thought content remain difficult to guest request runner (speaks minimally and very tersely with one and 2 word answers to question and virtually no spontaneous speech). Assessment: A 37-year-old Single White Male who was admitted to the inpatient psychiatric unit on 10/04/2017 due to acute psychotic decompensation. Since then, Dominik has shown reasonable improvement and has been all along free of thoughts of suicide, violence or homicide. Treatment Plan Update: D/C Home today D/C Home today 2) Fluphenazine Decanoate 25 mg IM today Klonopin 1.5 mg at bedtime
--- NOTE | 2017-10-13 10:31 | DISCHARGE SUMMARY REPORT-PSYCH ---
Visit Information Visit Dates/Diagnosis' Admission Date: 10/04/17 Discharge Date: 10/13/17 Reason for Admission: The patient was admitted to the inpatient psychiatric unit because of what seemed to be an acute psychotic decompensation Psy Discharge Primary Diag: Schizophrenia Psy Discharge Secondary Diag: Cannabis Use Disorder Hospital Course Significant Lab Findings: Lab Cholesterol 195 MG/DL 10/13/17 1145 Cholesterol/HDL Ratio 3 % 10/13/17 1145 HDL Cholesterol 62 mg/dL H 10/13/17 1145 Hemoglobin A1c 5.6 % 10/13/17 1145 LDL Cholesterol, Calc 79 mg/dL 10/13/17 1145 Triglycerides 271 mg/dL H 10/13/17 1145 Course Complications: Did not have any complications while he was on the inpatient psychiatric unit. Consultations: The patient had a history and physical examination by the rn plasma center while he was on the inpatient psychiatric unit. Please refer to the patient's electronic health record for the details of the H&P. Allergies: Coded Allergies: NO KNOWN ALLERGIES (08/11/12) Hospital Course/TX Response: 10/05/2017: Impression and Plan: 37-year-old single white male who presents with an acute psychotic decompensation of chronic schizophrenia paranoid type. He claims that he has been taking his medications as prescribed. He claims that he has been smoking minimal amount of cannabis Diagnosis(es): Schizophrenia, in acute exacerbation, paranoid type Cannabis use disorder, mild Treatment Plan: Continue fluphenazine 5 mg twice daily Change Klonopin to 1.5 mg at bedtime Continue as needed doses of Klonopin 0.5 mg for anxiety agitation or insomnia 10/06/2017-10/12/2017: During the patient's stay medication regimen had stayed basically about the same the only changes were made in the formulation. Initially there was concern whether the patient was cheeking his medication as 1 of the pills for Prolixin was found in his pocket. Therefore he was switched to liquid. He however complained about the extreme unpleasantness of the taste of the liquid Prolixin and was therefore switched to crushed tablets. On 10/12/2017 he agreed to taking the Prolixin decanoate injection and he was giving 25 mg intramuscularly 10/13/2017: Diagnoses (Last updated 10/11/2017): F20.9: Schizophrenia, multiple episodes, currently in partial remission. F12.10: Cannabis Use Disorder, mild Treatment team discussed Pt's progress, treatment plan, and aftercare plans. The treatment team included: LCSWs, RNs, Group & Activity Therapy staff, and psychiatrist. Vital Signs: Temp: 97.3 degrees, Pulse: 64/min, B/P: 128/55 Mental Status Examination: Dominik was advocating for his own discharge today, he said he feels ready to go home today. He did, in fact, take Prolixin Decanoate injection 25 mg IM yesterday. He was calm and cooperative this morning. Dominik was alert and oriented to time, place, and person. He showed normal psychomotor activity, no dystonia and no abnormal or bizarre behaviors. Dominik's speech was reduced in rate and quantity. His affect was flat but he denied feeling depressed, denied thinking of suicide, and denied violent thoughts or thinking of homicide. He denied hallucinations, denied feeling paranoid, there were no specific delusions during the interview. His thought process and thought content remain difficult to valve repairer (speaks minimally and very tersely with one and 2 word answers to question and virtually no spontaneous speech). Assessment: A 37-year-old Single White Male who was admitted to the inpatient psychiatric unit on 10/04/2017 due to acute psychotic decompensation. Since then, Dominik has shown reasonable improvement and has been all along free of thoughts of suicide, violence or homicide. Treatment Plan Update: D/C Home today Discharge HBIPS - Tobacco Use Treatment Offered Post DC Medications Offered: Refused Tob Medication Tx Post DC Tobacco Treatment Plan: Refused Tobacco Tx Pgm - EtOH/Drug Use D/O Treatment Offered Post DC Medications Offered: Med Not Indicated for D/O Post DC EtOH/SubAbuse TX Plan: Other SubAbuse/Dual Pgm Metabolic Screening - Screen if on a Neuroleptic Medication - Metabolic screening should include: - Blood Pressure, BMI, Glucose or Hgb A1c, & a - Lipid profile from within the past 365 days. Metabolic Screening Patient on a neuroleptic(s) . Enter below results for Hemoglobin A1C, and lipid panel if obtained during the last 365 days. BMI: 22.900 Blood Pressure: 109/67 Laboratory Results From [facility] (If applicable): Lab Cholesterol 195 MG/DL 10/13/17 1145 Cholesterol/HDL Ratio 3 % 10/13/17 1145 HDL Cholesterol 62 mg/dL H 10/13/17 1145 Hemoglobin A1c 5.6 % 10/13/17 1145 LDL Cholesterol, Calc 79 mg/dL 10/13/17 1145 Triglycerides 271 mg/dL H 10/13/17 1145 Discharge Instructions General Discharge Information Multiple Neuroleptics: ([X]) Not Applicable Discharge Diet Regular Discharge Activity Normal DC Disposition: Self-care Referrals Ordered Referrals Provider Referral 10/31/17 For Groups: [[facility]] [address] [phone] Individual therapy appointment: 10/31/17, at 9am with Verito Jenkins LPC Provider Referral 11/03/17 For Groups: [[address] [phone] Medication appointment: 11/03/17, at 12:30pm with Emeli Charles APRN Provider Referral For Groups: [[address] [phone] Patient will contact Juan Valadez to schedule case management appointments. Provider Referral For Groups: [[facility]] [facility] [phone] Provider Referral 10/18/17 For Providers: [[facility]] For Groups: [Sm[facility]essation Group] [facility] [address] [phone] Group meets every other Monday at 4pm Next Group: 10/18/17, at 4pm Provider Referral 10/18/17 For Groups: [[address] [phone] IOP Intake/orientation: 10/18/17, at 2pm Prescriptions Stop taking the following medications: Clonazepam (Klonopin) 0.5 MG TABLET ORAL 2 x Daily as needed [PROLIXIN] 5 MG ORAL TWICE DAILY Ibuprofen (Ibuprofen) 800 MG TABLET ORAL THREE TIMES DAILY as needed for PAIN Qty = 20 Start taking the following new medications: Clonazepam (Klonopin) 0.5 MG TABLET 3 Tablet ORAL AT BEDTIME Qty = 45 No Refills Comments: Last Taken:10/12/17 Time:9PM Fluphenazine Decanoate (Fluphenazine Decanoate) 25 MG/ML VIAL 1 Milliliters INTRAMUSC EVERY 2 WEEKS Qty = 1 No Refills Comments: Last Taken:10/12/17 Time:4:30PM Studies Pending at Discharge none Copies To: DOE Howe
[2017-10-13 12:10] VITALS: BP 109/67
[2017-10-13] MEDS ORDERED: KLONOPIN0.5 M1 PO (14:22)
[2017-10-13] MEDS ORDERED: FLUPHENAZI25 MG/1 ML IM (14:25)
--- NOTE | 2017-10-13 14:26 | Patient Discharge Instructions ---
Psych Discharge Inst General Discharge Information Reason for Admission: The patient was admitted to the inpatient psychiatric unit because of what seemed to be an acute psychotic decompensation Psy Discharge Primary Diag+ Schizophrenia, multiple e Psy Discharge Secondary Diag+ Cannabis Use Disorder Summary Tests/Major Procedures Lab Cholesterol 195 MG/DL 10/13/17 1145 Cholesterol/HDL Ratio 3 % 10/13/17 1145 HDL Cholesterol 62 mg/dL H 10/13/17 1145 Hemoglobin A1c 5.6 % 10/13/17 1145 LDL Cholesterol, Calc 79 mg/dL 10/13/17 1145 Triglycerides 271 mg/dL H 10/13/17 1145 Studies Pending at DC: none Patient Instructions Contact Information Your Psychiatrist on [facility] was Keren OJEDA,Javi * If you are experiencing an emergency related to this hospitalization, please call [phone] to contact the treating psychiatrist or the psychiatrist-on- call. * To Request a copy of your medical records, please contact the Medical Records Department at [phone]. * To request results of studies pending at the time of discharge, please call [phone]. * Continue your Medications until directed to stop by your Healthcare provider. General Medication Information Please continue to take your new medications and your continued home medications , unless otherwise indicated on your discharge medication list, or unless directed by your MD or MINING ENGINEER to stop them. Special Instructions Diet Regular Activity Normal - Tobacco Use Treatment Offered Post DC Medications Offered: Refused Tob Medication Tx Post DC Tobacco Treatment Plan: Refused Tobacco Tx Pgm - EtOH/Drug Use D/O Treatment Offered Post DC Medications Offered: Med Not Indicated for D/O Post DC EtOH/SubAbuse TX Plan: Other SubAbuse/Dual Pgm Metabolic Screening Patient on a neuroleptic(s) . Enter below results for Hemoglobin A1C, and lipid panel if obtained during the last 365 days. BMI: 22.900 Blood Pressure: 109/67 Laboratory Results From [facility] (If applicable): Lab Cholesterol 195 MG/DL 10/13/17 1145 Cholesterol/HDL Ratio 3 % 10/13/17 1145 HDL Cholesterol 62 mg/dL H 10/13/17 1145 Hemoglobin A1c 5.6 % 10/13/17 1145 LDL Cholesterol, Calc 79 mg/dL 10/13/17 1145 Triglycerides 271 mg/dL H 10/13/17 1145 Advance Directives Does the Patient have Medical Advance Directives No/Refused further info Does Pt have Psychiatric Advance Directives? No/Refused further info Does Patient have a Designated Surrogate Decision Maker: No Information About Psychiatric Advance Directives Provided? Refused Discharge Plan Post Hospital Treatment Plan: [facility] IOP-Dual track
[2017-10-13 15:58] VITALS: BP 128/67
--- NOTE | 2017-10-13 17:21 | SOCIAL WORKER PROG NOTE PSYCH ---
Social Work Progress Note Progress Note This sign writer letterer or painter was informed by Dr. Veliz that the patient would like to discharge today. This sign writer letterer or painter met with patient who maintained that he is not interested in remaining in the hospital and would like to discharge. He was agreeable to a visiting nurse as well as IOP at [facility]. [facility] IOP referral was faxed to Marlyn at [phone] at 11:04am, today, 10/13/17. He also accepted the information for the smoking cessation group. Patient identified a safety plan in which he would notify his parents and use the crisis numbers and warm line numbers that will be provided upon discharge. Patient was agreeable to discussing his interest in discharging during the family meeting today at 2: 15pm. This sign writer letterer or painter spoke with Patricia ([phone]) at [facility]. She confirmed that the patient had been referred in the past and that they would accept him again. Patricia was informed that she would be contacted following the family meeting to confirm whether discharge will take place today and services requested. This sign writer letterer or painter spoke with patient's parents approximately 1:15pm to confirm the 2: 15pm family meeting today and inform of patient's interest in discharging today. Dr. Veliz and this sign writer letterer or painter met with the patient, his parents and [facility] family independence case manager, Juan Valadez. Patient's parents expressed concerns about discharge and felt that the patient was no ready to do so. They were informed that the patient accepted the injection and has appointments scheduled with [facility] ( individual therapy, medication management and IOP). Patient's parents stated that they were unwilling to allow the patient to return home at this time and would call the police if he did return. Patient stated that he would stay with friends temporarily while he is waiting for a skilled nursing bed. He will call [phone] to schedule a CAN assessment. Patient also expressed interest in learning about [facility] and Mikael Valadez will assist in connecting him with [place]. Mikael informed him that a bed would not likely be available immediately. When asked about funds, patient stated that he has food stamps and is expecting his check at the end of next week. Patient's father stated that he would not be providing any financial assistance. This sign writer letterer or painter expressed concerns to the patient about discharging with the current plan. He was encouraged and offered to remain in the hospital in order to allow for more time and also submit referrals to Crisis and Respite as well as schedule a time for him to meet with [place]. Patient was not accepting of this and maintained that he would like to discharge today. Patient's parents agreed to bring his car to the hospital along with some belongings that the patient requested. Patient inquired about where he would be able to receive the next injection and if this could be done at [facility]. This sign writer letterer or painter would explore this option. Patient informed his parents that he is not interested in having any further contact with them and promptly left the room. This sign writer letterer or painter reviewed case with Iman Davis as well as Dr. Veliz and discharge will proceed at patient's request. Patient's parents continued to express concern about discharge, to include a phone call following the meeting. They were informed of the patient advocate at and given the number in order to contact the patient advocate if they were interested. During this call they also stated that they do not believe that the patient would be able to stay with his friends. This sign writer letterer or painter relayed this to the patient, who stated that he has spoken with his friends and they have confirmed that he may stay with them. Patient advocate, Abram, spoke with this sign writer letterer or painter. Patient's parents did contact her to express concerns. She followed up with Dr. Veliz and discharge will continue. This sign writer letterer or painter spoke with Patricia at [facility] to inform that discharge will take place today. Regarding a location to meet the patient for the next injection, she stated that they would be able to meet him at [facility] if [facility] approves of this. Per Dr. Veliz, Patricia was informed that visiting nurse services requested are only to give the injection in 2 weeks. This sign writer letterer or painter spoke parul Cline at [facility] to inform of discharge. She was also informed of the questions regarding [facility] meeting the patient at [facility] for the injection. Marlyn will discuss this with the team on Monday (clinic is closed on Monday due to holiday) and call [facility] as well as this sign writer letterer or painter to inform if they can schedule a time to meet the patient at [facility]. This sign writer letterer or painter left discharge clinical for Jesika at [place] (carve out for [facility]) ([phone], ext. [phone]) Faxed Referral(s) 1 Referred To: [facility] Transition of Care Documents sent: Health Summary Faxed to: Shyam, attn: Marlyn Fax #: [phone] Faxed by: Anoop Lundy LCSW Date faxed: 10/13/17 Time Faxed: [phone] Faxed Referral(s) 2 Referred To: [facility] Transition of Care Documents sent: Health Summary, W10 Faxed to: [facility] Fax #: [phone] Faxed by: Anoop Lundy LCSW Date faxed: 10/13/17 Time Faxed: [phone] Comment: fax number provided by [facility] computer applications engineer service
--- NOTE | 2017-10-18 13:15 | IP INCIDENTAL NOTE PSYCH ---
See Addendum Incidental Note Notation: Call returned to patient's mother, and we discussed her concerns about the patient's care.
== END 2017-10-13 17:13 | DRG 885 ==
LOC: ERH 20:45 → CP SOUTH 10-04 12:21 → ERHI 10-04 12:21 → ENTRNSPT 10-04 13:15 → EDTRNSPTSTS 10-04 13:16 → EDTRNSPT 10-04 13:16 → CP SOUTH 10-04 13:21 → CMPTRNSPT 10-04 13:35 → ENRESERV 10-04 23:59 → CP SOUTH 10-06 10:08
PROVIDERS: Physician Assistant Medical; Psychiatry & Neurology Psychiatry
DX: F20.9 Schizophrenia, unspecified (principal); F12.90 Cannabis use, unspecified, uncomplicated
CPT/HCPCS: 36415; 80307; 81001; G0463; G0480; J2680

== ENCOUNTER 2017-10-19 20:37 | Inpatient (IN) | payer OTHER ==
[~2017-10-19] VITALS: Ht 177.8 cm; Wt 69.6 kg
[~2017-10-19 20:37] MED LIST changes: +FLUPHENAZI25 MG/1 ML IM
--- NOTE | 2017-10-19 20:51 | ED PSYCHIATRIC COMPLAINT ---
See Addendum History of Present Illness General Chief Complaint: General Adult Stated Complaint: "PER MOM REACTION TO MEDS/ ANXIETY " Source: patient Exam Limitations: confusion, poor historian Vital Signs & Intake/Output Vital Signs & Intake/Output Vital Signs Date Time Temp Pulse Resp B/P B/P Pulse O2 O2 Flow FiO2 Mean Ox Delivery Rate 10/20 0103 97.7 74 18 118/77 99 Room Air 10/19 2045 98.1 76 18 133/78 98 Room Air ED Intake and Output 10/20 0000 10/19 1200 Intake Total 1000 Output Total Balance 1000 Intake, IV 1000 Patient 160 lb Weight Weight Reported by Patient Measurement Method Allergies Coded Allergies: fluphenazine (From PROLIXIN) (ANEXITY PER PT 10/19/17) Reconcile Medications Clonazepam (Klonopin) 0.5 MG TABLET 3 TAB PO AT BEDTIME anxiety Fluphenazine Decanoate 25 MG/ML VIAL 1 ML IM Q 2 WEEKS schizophrenia Triage Note: PT FROM HOME C/O ANXIETY PER PT FROM PROLIXIN INJECTION RECIEVED IN CPS ON MONDAY. PT STATES SINCE THEN HE HAS BEEN CRAWLING OUT OF HIS SKIN "SURYA BEEN ROLLING AROUND ON MY BASEMENT FLOOR HAVING A SEIZURE FOR 2 HRS" UNWITNESSED. PT BECOMING VERBALLY AGGRESSIVE, ANXIOUS, TAPPING FEET IN TRIAGE. DR GROVES IN FOR EVAL. PT HAS HX OF SCHIZOAFFECTIVE DISORDER. VSS. Triage Nurses Notes Reviewed? yes Onset: Abrupt Duration: hour(s): Timing: recent history HPI: 10/20/17 1:28 AM 37-year-old male presents to the emergency department acutely agitated brought in by his parents. He apparently received an IM injection of Prolixin and states that he's had multiple seizures and is not feeling right since the injection. On arrival he was threatening and acutely agitated. He was treated with Ativan and Benadryl and slept calmly. He is currently awake and alert and oriented 3. He has a past medical history of schizoaffective disorder. Past History Travel History Traveled to [place] past 21 day No Medical History Any Pertinent Medical History? see below for history Neurological: History of Lyme disease 3-4 years ago. EENT: allergies Cardiovascular: NONE Respiratory: childhood asthma (diagnosed age 9 yrs) Gastrointestinal: NONE Hepatic: NONE Renal: NONE Musculoskeletal: plantar fasciitis, right foot. 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 MOTHER (HTN.). SISTER (HTN.). Maternal grandfather (Lung cancer). Uncle (CAD s/p stent.). Relation not specified for: *No pertinent family history Hx Contributory? No Review of Systems Review of Systems Constitutional: Denies: fever. EENTM: Reports: no symptoms. Respiratory: Reports: no symptoms. Cardiovascular: Reports: no symptoms. GI: Reports: no symptoms. Genitourinary: Reports: no symptoms. Musculoskeletal: Reports: no symptoms. Skin: Reports: no symptoms. Neurological/Psychological: Reports: anxiety, other (agitated). Hematologic/Endocrine: Reports: no symptoms. Immunologic/Allergic: Reports: no symptoms. Physical Exam Physical Exam General Appearance: alert, awake, anxious, moderate distress Head: atraumatic, normal appearance Eyes: Bilateral: normal appearance, PERRL, EOMI. Ears, Nose, Throat: normal pharynx, normal ENT inspection Neck: normal inspection, supple, full range of motion Respiratory: normal breath sounds, chest non-tender, no respiratory distress Cardiovascular: regular rate/rhythm Gastrointestinal: non-tender Extremities: normal range of motion Neurological/Psychiatric: no motor/sensory deficits, awake, agitated, alert Appearance/Memory/Insight: disheveled Behavoir/Eye Contact/Speech: uncooperative Thoughts/Hallucinations: paranoid Skin: intact, normal color, warm/dry SAD PERSONS SAD PERSONS Response Value Male Sex? yes 1 Depression/Hopelessness? yes 2 Previous Attempts/Psych Care yes 1 Rational Thinking Loss? yes 2 Social Support? has support 0 Total 6 SAD PERSONS Done? yes Progress Differential Diagnosis: drug intoxication, drug overdose, SCHIZOEFFECTIVE DISORDER, AGIATTION, INTOXICATION Plan of Care: Orders Procedure Date/time Status URINE DRUG SCREEN FOR ER ONLY 10/20 2051 Active ETHANOL 10/20 2051 Complete COMPREHENSIVE METABOLIC PANEL 10/20 2051 Complete CBC WITHOUT DIFFERENTIAL 10/20 2051 Complete Laboratory Tests 10/19/172107: Anion Gap 11, Estimated GFR > 60, BUN/Creatinine Ratio 14.4, Glucose 105 H, Calcium 8.8, Total Bilirubin 0.3, AST 19, ALT 24, Alkaline Phosphatase 55, Total Protein 6.3, Albumin 3.7, Globulin 2.6, Albumin/Globulin Ratio 1.4, CBC w Diff NO MAN DIFF REQ, RBC 4.49 L, MCV 87.4, MCH 28.9, MCHC 33.1, RDW 13.7, MPV 10.2, Gran % 60.9, Lymphocytes % 28.1, Monocytes % 7.3, Eosinophils % 3.3, Basophils % 0.4, Absolute Granulocytes 6.2, Absolute Lymphocytes 2.9, Absolute Monocytes 0.7 H, Absolute Eosinophils 0.3, Absolute Basophils 0, Serum Alcohol < 10.0 Initial ED EKG: none Departure Departure Disposition: STILL A PATIENT Condition: Stable Clinical Impression Primary Impression: Agitation Secondary Impressions: Schizoaffective disorder Referrals: Kaden Velazquez MD (PCP/Family) Departure Forms: Customer Survey General Discharge Information Comments 10/20/17 1:32 am The patient slept after getting, IVF, Ativan, and Benadryl The patient was signed out to Dr. Allen at 1 AM. Critical Care Note Critical Care Note Critical Care Time: 30-74 min
[2017-10-19 21:17] LABS: ABSOLUTE BASOPHIL COUNT 0 /CUMM (0.0-0.2); ABSOLUTE EOSINOPHIL COUNT 0.3 /CUMM (0.0-0.7); ABSOLUTE GRANULOCYTE CT 6.2 /CUMM (1.4-6.5); ABSOLUTE LYMPH COUNT 2.9 /CUMM (1.2-3.4); ABSOLUTE MONOCYTE COUNT 0.7 /CUMM (0.10-0.60); BASOPHIL % 0.4 % (0.0-2.0); EOSINOPHIL % 3.3 % (0-5); GRANULOCYTE % 60.9 % (42.2-75.2); HEMATOCRIT 39.2 % (42-52); MEAN CORPUSCULAR HGB 28.9 PG (27.0-31.0); MEAN CORPUSCULAR HGB CONC 33.1 G/DL (33.0-37.0); MEAN CORPUSCULAR VOLUME 87.4 FL (80.0-94.0); MEAN PLATELET VOLUME 10.2 FL (7.4-10.4); PLATELET COUNT 235 /CUMM (130-400); RBC DISTRIBUTION WIDTH 13.7 % (11.5-14.5); RED BLOOD CELL CT 4.49 /CUMM (4.70-6.10); WHITE BLOOD CELL COUNT 10.2 /CUMM (4.8-10.8)
--- NOTE | 2017-10-20 12:33 | ED PSYCH CRISIS CONSULTATION ---
Crisis Consult Basic Assessment Date of Consult: 10/20/17 Responsible Person/Accompanied By: self/parents Insurance Authorization: Insurance #1: Insurance name: [employer] Phone number: Policy number: [id number] Group number: [id number] Authorization number: ED Provider: Patient's ED Provider: Stoney Theodore MD Primary Care Physician: Patient's PCP: Kaden Velazquez MD PCP's Current Psychiatrist: Emeli Bazzi APRN Chief Complaint: Psychiatric Related Complaint Patient's Quote: I'm having anxiety attacks from the injection. Present Illness: Pt is a 37 yo make presenting to [place] ED last evening with reports of having seizures and anxiety. Pt was discharged from [facility] last Monday and has a hx of multiple prior psychiatric admissions and a diagnosis of schizophrenia. Pt denies SI/HI/AH/VH. Pt is reporting severe panic attacks and possible recent seizures he is contributing to his recent fluphenazine decanoate injection last . Family reports pt is not well. They report he has been angry, agitated and threatening towards them. They report they are afraid of him and have been locking their bedroom door at night. Pt reports only having problems with anxiety and would like a medication change but is not in agreement with need for inpatient psychiatric admission. Since pt was a recent [facility] discharge he was seen by Dr Veliz in the ED and after assessment placed on a PEC for admission to [facility]. Patient's Address: [address] [place] [address] Other Phone Number: Who Do You Live With? Family Family/Informants Interviewed: Collateral provided by pt mother [phone]. She reports pt he not been well since discharge last Monday from [facility]. She reports pt has been angry and agitated past several days. She reports he has been yelling and making threats. She reports she and are scared and are sleeping with their bedroom door locked. She reports he appears to be responding to internal stimuli but always denies it. She reports she and her hear him talking to himself. She reports last night he was rolling around the floor saying he was having seizures and panic attacks and asked them to bring him to the hospital. She reports they are not sure if pt will be able to return to their home to live. Allergies - Coded Allergies: No Known Allergies (10/20/17) Current Medications - Scheduled Medications Clonazepam (Klonopin) 0.5 MG TABLET 3 TAB PO AT BEDTIME anxiety #45 TAB Prescribed by Javi Veliz MD on 10/13/17 Fluphenazine Decanoate 25 MG/ML VIAL 1 ML IM Q 2 WEEKS schizophrenia #1 VIAL Prescribed by Javi Veliz MD on 10/13/17 Discontinued Medications Clonazepam (Klonopin) 0.5 MG TABLET 1 TAB PO BIDP (Reported) Discontinued reason: Changed Dose Ibuprofen 800 MG TABLET 1 TAB PO TID PRN PAIN #20 TAB Discontinued reason: Per Doctor Decision [PROLIXIN] 5 MG 5 MG PO BID (Reported) Discontinued reason: Changed how to take Laboratory Results: Laboratory Tests 10/20/17 0647: Urine Opiates Screen < 100, Methadone Screen < 40, Barbiturate Screen < 60, Ur Phencyclidine Scrn < 6.00, Amphetamines Screen < 100, U Benzodiazepines Scrn < 85, Urine Cocaine Screen < 50, Urine Cannabis Screen 79.10 H 10/19/17 2108: Anion Gap 11, Estimated GFR > 60, BUN/Creatinine Ratio 14.4, Glucose 105 H, Calcium 8.8, Total Bilirubin 0.3, AST 19, ALT 24, Alkaline Phosphatase 55, Total Protein 6.3, Albumin 3.7, Globulin 2.6, Albumin/Globulin Ratio 1.4, CBC w Diff NO MAN DIFF REQ, RBC 4.49 L, MCV 87.4, MCH 28.9, MCHC 33.1, RDW 13.7, MPV 10.2, Gran % 60.9, Lymphocytes % 28.1, Monocytes % 7.3, Eosinophils % 3.3, Basophils % 0.4, Absolute Granulocytes 6.2, Absolute Lymphocytes 2.9, Absolute Monocytes 0.7 H, Absolute Eosinophils 0.3, Absolute Basophils 0, Serum Alcohol < 10.0 Past History Past Medical History Neurological: History of Lyme disease 3-4 years ago. EENT: allergies Cardiovascular: NONE Respiratory: childhood asthma (diagnosed age 9 yrs) Gastrointestinal: NONE Hepatic: NONE Renal: NONE Musculoskeletal: plantar fasciitis, right foot. 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 Physical Limitations (Interventions): Per history- Ambulatory, but demonstrates a limp, favoring his right foot. Psychiatric Treatment History Psych Treatment Psychiatric Treatment Yes Inpatient Treatment Yes Outpatient Treatment Yes Reason for Treatment psychosis/anxiety Response to Treatment Most recently has been attending [facility] outpatient and see his Elif mendez APRN His most recent admission at [facility] was October 2016 --multiple prior inpatient psychiatric hopsitalization on [facility], [place] and other hospital (last [facility], 10/15/16-10/21/16). --prior IOP/OPS --discharged from [facility] on 10/31/16 for dissruptive bx Diagnosis by History: schizoaffective disorder Substance Use/Abuse History Drug Use/Abuse Substances Used/Abused Yes Substance Used/Abused Marijuana How often unknown frequency as pt denies use despite positve tox screen Substance Abuse Treatment Substance Abuse Treatment Past Substance Abuse TX No Inpatient Treatment No Outpatient Treatment No Comments: pt denies etoh. Pt urine screen positive for cannabis. Current Mental Status Mental Status Orientation: Person, Place, Situation Affect: Anxious, Angry Speech: WNL Behaviors Thought Process: Irrational Memory: WNL Insight: Fair SI/HI Risk Assessment Past Suicidal Ideation/Attempts No Current Suicidal Ideation/Att No Past Homicidal Ideation/Att: No Current Homicidal Ideation/Attempts No Degree of Intent: None Danger To: Others, Self Gravely Disabled: Inability, Lack of Insight, Poor Impulse Control, Poor Judgment Risk Factors: high anxiety/distress, SA/MH hospitalized, substance abuse, isolate/no social support, poor impulse control, male Lethality Ratin PTSD Checklist PTSD Done? patient declined ED Management Sitter: Yes Restraints: No DSM5/PS Stressors/Medical Prob Diagnosis' (DSM 5, Stressors, Medical): Schizophrenia F29.0 Cannabis Use D/O F12.20 possible homelessness reaction to new medication Current GAF: 25 Comments: Pt is irritable, agitated, threatening, possibly responding to internal stimulation. Possible adverse reaction to new medications. Departure Disposition Psych Medical Clearance Date: 10/20/17 Medically Cleared at: 1015 Time Started: 1015 Time Ended: 1100 Psychiatrist Consulted: Xander Mays MD Date Disposition Established: 06/01/18 Time Disposition Established: 1100 Plan for Disposition - Modality: Inpatient Psychiatry Facility: [facility] Rationale for Disposition: Gravely disabled. Experiencing severe panic attacks and threatening harm to others Type of IP Admission: PEC Referrals Kaden Velazquez MD (PCP/Family)
--- NOTE | 2017-10-20 14:58 | CPS PROVIDER INIT ASMT PSYCH ---
Psychiatric Admission Hand Spring Repairer's Note Reviewed: Yes Patient Seen and Examined: Yes Identifying Information: Patient is a 37-year-old single white male Chief Complaint: "I had a panic attack because of the medication" Reaction to Hospitalization: The patient did not want to be hospitalized and put him on a physician emergency certificate because of agitation or threatening demeanor and possible underlying psychotic symptoms. The patient usually denies every single symptom he is asked about despite objective evidence to the contrary. He is well known to me from previous treatments both outpatient as well as inpatient including a very recent admission (discharge was only a week ago History of Present Illness Onset of Illness: The patient with was discharged last Monday his intention was to walk to his parent's home and cone picker his car and go stay with a friend. There was a lot of skepticism whether there is actually a friend that he can stay with. And it looks like he ended up staying in the basement of his parents he blames the Prolixin Decanoate injection that he was given 8 days ago for experiencing "panic attack" yesterday and elsewhere in the record he claims that he was having seizures because of the injection that he received a days ago Circumstances Leading to Admission: The patient was brought in to the emergency room reportedly because of concern about side effects from his injection (the injection was given on the inpatient psychiatric unit 8 days earlier" Peer the ED Triage notes: PT FROM HOME C/O ANXIETY PER PT FROM PROLIXIN INJECTION RECIEVED IN CPS ON MONDAY. PT STATES SINCE THEN HE HAS BEEN CRAWLING OUT OF HIS SKIN "SURYA BEEN ROLLING AROUND ON MY BASEMENT FLOOR HAVING A SEIZURE FOR 2 HRS" UNWITNESSED. PT BECOMING VERBALLY AGGRESSIVE, ANXIOUS, TAPPING FEET IN TRIAGE. DR GROVES IN FOR EVAL. . Problem(s) Justifying Need for Admission: Agitation, possible side effects, most likely cannabis induced decompensation of underlying psychotic symptoms, disorganized behavior at the parent's basement Past Psychiatric History Past Diagnosis(es)- if any: Schizophrenia spectrum disorder most likely chronic paranoid schizophrenia Cannabis use disorder The patient has also been given a diagnosis of schizoaffective disorder, bipolar type Past Precipitating Factors- if any: Cannabis use, stopping medications without medical advice - Include inpatient and outpatient treatment Treatment History: Patient was discharged from the inpatient psychiatric unit exactly a week ago Most recently has been attending [facility] outpatient and see his Elif mendez APRN His most recent admission at [facility] was October 2016 --multiple prior inpatient psychiatric hopsitalization on [facility], [place] and other hospital (last [facility], 10/15/16-10/21/16). --prior [facility] IOP/OPS --discharged from [facility] on 10/31/16 for dissruptive bx History of Suicide Attempts or Gestures Pt denies. Per chart, review, his former ex-girlfriend (a very unreliable woman) believed that he intentionally self-injured himself with a knife in a suicidal gesture. Substance Abuse History: Chronic cannabis use Denies alcohol or other substances Tobacco use disorder Allergies: Coded Allergies: No Known Allergies (10/20/17) Home Med List: Patient was discharged on Prolixin Decanoate 25 mg intramuscularly every 2 weeks the last injection he received was 8 days ago exactly Klonopin on it 1-1/2 mg at bedtime - Include any medical condition(s) that may - impact the patient's recovery/remission Past Medical History: The patient reported in a previous admission that he had Lyme disease in 2013 Past History Medical History Neurological: History of Lyme disease 3-4 years ago. EENT: allergies Cardiovascular: NONE Respiratory: childhood asthma (diagnosed age 9 yrs) Gastrointestinal: NONE Hepatic: NONE Renal: NONE Musculoskeletal: plantar fasciitis, right foot. Psychiatric: schizo affective disorder Endocrine: NONE Blood Disorders: NONE Cancer(s): NONE TOP CAGER/Reproductive: NONE Other Medical Hx: Acne, he reported history of Lyme in 2012 or thereabouts History of MRSA: No History of VRE: No History of CDIFF: No Isolation History: Standard Surgical History Surgical History: appendectomy Psychiatric Family/Social Hx Family History Psychiatric Illness: The patient denies psychiatric history in the family Substance Use: Patient denied substance abuse history in the family Suicides: Denied suicides in the family Social History Living Situation: Was living in the parent's basement Significant Relationships (family/friends): Parents Education: Reportedly has a bachelor's degree Vocation/Occupation: Unemployed Legal: He denies legal entanglements or history of incarcerations Healthly Behaviors Screening Tobacco Screening Tobacco Use from ED Docu: Current Daily Use Daily Tobacco Use Amount/Type: => 5 Cigarettes daily - If tobacco counseling indicated - the following topics are required. - #1 Recognizing dangerous situations. - #2 Coping Skills. - #3 Basic information about quitting. Status of Tobacco Cessation Counseling: #1, #2 AND #3 Completed Cessation Med Status Nicotine Patch Ordered Alcohol Screening - ETOH screen POS if BAL >=80 or Audit-C>= M4/F3 Audit-C Score from Diag Assess: 0 Blood Alcohol Level: Laboratory Tests 10/20 2107 Toxicology Serum Alcohol (<10 MG/DL) < 10.0 Alcohol Use Screening Results: Neg per Audit C &/or BAL - If ETOH counseling indicated - the following topics are required. - #1 Express concern about the patient's - drinking at unhealthy levels, include informing - of national norms for moderate drinking: - men <= 14 drinks/week, max 4 drinks/occasion - women <= 7 drinks/week, max 3 drinks/occasion - #2 Providing feedback, including linking alcohol to - negative physical effects (liver injury, hypertension) - negative emotional effects (relationship problems and - depression) - negative occupational consequences (reduced work - performance) - #3 Advising the patient to abstain from alcohol or - to drink below national norms for moderate drinking - (as listed above). Status of ETOH Use Counseling: N/A B/C NO ETOH Use Metabolic Screening - Screen if on a Neuroleptic Medication - Metabolic screening should include: - Blood Pressure, BMI, Glucose or Hgb A1c, & a - Lipid profile from within the past 365 days. Metabolic Screening Patient on a neuroleptic(s) . Enter below results for Hemoglobin A1C, and lipid panel if obtained during the last 365 days. BMI: 22.9 Blood Pressure: 98/54 Laboratory Results From [facility] (If applicable): Lab Cholesterol 195 MG/DL 10/13/17 1145 Cholesterol/HDL Ratio 3 % 10/13/17 1145 HDL Cholesterol 62 mg/dL H 10/13/17 1145 Hemoglobin A1c 5.6 % 10/13/17 1145 LDL Cholesterol, Calc 79 mg/dL 10/13/17 1145 Triglycerides 271 mg/dL H 10/13/17 1145 Exam and Plan Mental Status Examination Ambulation Status: The patient was steady on his feet Appearance: Unremarkable Attitude towards examiner: Hostile and threatening Psychomotor activity: Increased psychomotor activity Behavior: His been exhibiting bizarre behavior at his parent's house Quality of speech: Slightly pressured and loud with an angry tone Affect: Irritable and angry Mood: Denied feeling depressed Suicidal Ideation: Denied thoughts of suicide Homicidal Ideation: Denied thoughts of homicide Hallucinations: He denies hallucinations, is always denied hallucinations, his denial in my opinion is unreliable. Paranoid/Delusional Material: He denied feeling paranoid, the patient speaks with 1 or 2 word answers and therefore impossible to determine whether he has delusions, typically does not have any spontaneous speech unless he is asked a question Difficulties with thought organization: Again it is almost impossible to veterinary pathologist whether he has a thought disorder at this point or not Insight: poor Judgment: poor Orientation: poor Cognition: Does not have cognitive impairments Memory Function: No evidence of short-term memory impairment Estimate of intellectual functioning: Average Assets/Strengths Patient Identified Assets/Strengths: The patient is intelligent, he has very supportive parents, and self advocates Impression/Plan Impression and Plan: 37-year-old single white male with history of schizophrenia paranoid type. He was discharged a week ago from the inpatient psychiatric unit. He returned yesterday to the emergency department suggesting that he was having side effects from the injection that he received a days ago. He first reported to the tryouts that he was here having seizures for because of the injection. When I met with him he claimed that he only had a panic attack that he thinks is because of the medication. His urine toxicology was positive for cannabis. The patient is known to me from previous admission and a very recent discharge. - Include all active medical diagnosis that require tx DSM 5 Diagnosis(es): Schizophrenia, chronic with multiple episodes Cannabis use disorder - Initial Tx Plan for Active Psych & Medical Conditions Treatment Plan: Inpatient psychiatric care with safety checks every 15 minutes and Resume Klonopin 1-1/2 mg at bedtime and resume Prolixin 5 mg at bedtime - Factors that would help patient function - in a less restrictive setting. Factors: The patient will be discharged once there is a solid discharge plan and if he does not display any further episodes of agitation or disorganized behavior
--- NOTE | 2017-10-20 17:15 | IP CRISIS DIAG ASSESS PSYCH ---
Christopher Del Cid 10/20/17 1709: Diagnostic Assessment Basic Assessment Insurance Authorization: Insurance #1: Insurance name: [facility] Phone number: Policy number: [id number] Group number: [id number] Authorization number: Primary Care Physician: Patient's PCP: Kaden Velazquez MD PCP's Patient's Quote: I'm having anxiety attacks from the injection. Present Illness: Pt is a 37 yo make presenting to [place] ED last evening with reports of having seizures and anxiety. Pt was discharged from [facility] last Monday and has a hx of multiple prior psychiatric admissions and a diagnosis of schizophrenia. Pt denies SI/HI/AH/VH. Pt is reporting severe panic attacks and possible recent seizures he is contributing to his recent fluphenazine decanoate injection last . Family reports pt is not well. They report he has been angry, agitated and threatening towards them. They report they are afraid of him and have been locking their bedroom door at night. Pt reports only having problems with anxiety and would like a medication change but is not in agreement with need for inpatient psychiatric admission. Since pt was a recent [facility] discharge he was seen by Dr Veliz in the ED and after assessment placed on a PEC for admission to [facility]. Patient's Address: [address] [place] [address] Other Phone Number: Who Do You Live With? Family Feel Safe Where You Live? Yes Feel Safe in Your Relationship Yes Marital Status: single Do You Have Children? No Primary Language? Moldovan Language(s) Spoken At Home: Moldovan Family/Informants Interviewed: Collateral provided by pt mother [phone]. She reports pt he not been well since discharge last Monday from [facility]. She reports pt has been angry and agitated past several days. She reports he has been yelling and making threats. She reports she and are scared and are sleeping with their bedroom door locked. She reports he appears to be responding to internal stimuli but always denies it. She reports she and her hear him talking to himself. She reports last night he was rolling around the floor saying he was having seizures and panic attacks and asked them to bring him to the hospital. She reports they are not sure if pt will be able to return to their home to live. Allergies - Coded Allergies: No Known Allergies (10/20/17) Consequences of Psych Med Use: pt reports recent injectable is causing increased anxiety Lab Results: Laboratory Tests 10/20/17 0647: Urine Opiates Screen < 100, Methadone Screen < 40, Barbiturate Screen < 60, Ur Phencyclidine Scrn < 6.00, Amphetamines Screen < 100, U Benzodiazepines Scrn < 85, Urine Cocaine Screen < 50, Urine Cannabis Screen 79.10 H 10/19/17 2108: Anion Gap 11, Estimated GFR > 60, BUN/Creatinine Ratio 14.4, Glucose 105 H, Calcium 8.8, Total Bilirubin 0.3, AST 19, ALT 24, Alkaline Phosphatase 55, Total Protein 6.3, Albumin 3.7, Globulin 2.6, Albumin/Globulin Ratio 1.4, CBC w Diff NO MAN DIFF REQ, RBC 4.49 L, MCV 87.4, MCH 28.9, MCHC 33.1, RDW 13.7, MPV 10.2, Gran % 60.9, Lymphocytes % 28.1, Monocytes % 7.3, Eosinophils % 3.3, Basophils % 0.4, Absolute Granulocytes 6.2, Absolute Lymphocytes 2.9, Absolute Monocytes 0.7 H, Absolute Eosinophils 0.3, Absolute Basophils 0, Serum Alcohol < 10.0 Toxicology Screen Completed? Yes Results: positive Symptoms of Use: cannabis use Past History Past Medical History Medical History: Asthma, Psychiatric history, Schizoaffective disorder, Pt reports plantar fasciitis, right heel Past Surgical History Surgical History appendectomy Abuse/Trauma History Trauma History/Current Trauma: Denies Patient's Age at Time of Trauma: 1 Abuse/Trauma Treatment: none Legal History Current Legal Status: none Psychosocial History Strengths/Capabilities: The patient does appear to have supportive parents and is on social security disability. Physical Limitations (Interventions): Per history- Ambulatory, but demonstrates a limp, favoring his right foot. Psychiatric Treatment History Psych Treatment Psychiatric Treatment Yes Inpatient Treatment Yes Outpatient Treatment Yes Reason for Treatment psychosis/anxiety Response to Treatment Most recently has been attending [facility] outpatient and see his Elif mendez APRN His most recent admission at was October 2016 --multiple prior inpatient psychiatric hopsitalization on [facility], [place] and other hospital (last [facility], 10/15/16-10/21/16). --prior IOP/OPS --discharged from [facility] on 10/31/16 for dissruptive bx Diagnosis by History: schizoaffective disorder Risk Factors: high anxiety/distress, SA/MH hospitalized, substance abuse, isolate/no social support, poor impulse control, male Substance Use/Abuse History Drug Use/Abuse minimum 12mo Hx Substances Used/Abused Yes Substance Used/Abused Marijuana How often unknown frequency as pt denies use despite positve tox screen Substance Abuse Treatment Substance Abuse Treatment Past Substance Abuse [place] No Inpatient Treatment No Outpatient Treatment No Sexual History Sexual Concerns: * Per records, his ex-girlfriend has noted that he can be sexually inappropriate in public. Education History Highest Level of Education: bachelor's degree Preferred Learning Style: visual, auditory, experiential Current Mental Status Mental Status Orientation: Person, Place, Situation Affect: Anxious, Angry Speech: WNL Behaviors Thought Process: Irrational Memory: WNL Insight: Fair SI/HI Risk Assessment - Minimum 6mo History- Past Suicidal Ideation/Attempts No Current Suicidal Ideation/Att No Past Homicidal Ideation/Att: No Current Homicidal Ideation/Attempts No Degree of Intent: None Danger To: Others, Self Gravely Disabled: Inability, Lack of Insight, Poor Impulse Control, Poor Judgment Risk Factors: high anxiety/distress, SA/MH hospitalized, substance abuse, isolate/no social support, poor impulse control, male Lethality Ratin Needs/Init [place] Plan/Goals: Psychiatric assessment Medication evaluation Individual, group and family meetings Coordinated discharge planning AUDIT-C Questionnaire: AUDIT-C Questionnaire: Response Value ETOH use in the past year Never 0 # drinks typical/day Doesn't Drink 0 6 or > drinks per occasion Never 0 Total 0 DSM5/PS Stressors/Medical Prob Diagnosis' (DSM 5, Stressors, Medical): Schizophrenia F29.0 Cannabis Use D/O F12.20 possible homelessness reaction to new medication Current GAF: 25 Comments: Pt is irritable, agitated, threatening, possibly responding to internal stimulation. Possible adverse reaction to new medications. Janice Currie 10/21/17 1820: Diagnostic Assessment Current Medications - Scheduled Medications Clonazepam (Klonopin) 0.5 MG TABLET 3 TAB PO AT BEDTIME anxiety #45 TAB Prescribed by Javi Veliz MD on 10/13/17 Fluphenazine Decanoate 25 MG/ML VIAL 1 ML IM Q 2 WEEKS schizophrenia #1 VIAL Prescribed by Javi Veliz MD on 10/13/17 Addendum Note Addendum Spoke to [facility] and obtained insurance authorization for [facility] policy# [id number]. Authorization is: Effectve 10/20 for 4 days. Review Date 10/23 #[id number] Chasity Herman Current Mental Status SI/HI Risk Assessment - Minimum 6mo History-
[2017-10-20 18:15] VITALS: BP 134/86
[2017-10-20 22:36] VITALS: BP 123/69
[2017-10-21 07:53] VITALS: BP 120/60
--- NOTE | 2017-10-21 09:59 | SOCIAL WORKER SOCIAL HX PSYCH ---
Social History Basic Assessment Insurance Authorization: Insurance #1: Insurance name: [employer] Phone number: Policy number: [id number] Group number: [id number] Authorization number: Curr Source of Income/Entitlements: [facility] Primary Care Physician: Patient's PCP: Kaden Velazquez MD PCP's Present Problem: Pt is a 37 yo make presenting to [place] ED last evening with reports of having seizures and anxiety. Pt was discharged from [facility] last Monday and has a hx of multiple prior psychiatric admissions and a diagnosis of schizophrenia. Pt denies SI/HI/AH/VH. Pt is reporting severe panic attacks and possible recent seizures he is contributing to his recent fluphenazine decanoate injection last . Family reports pt is not well. They report he has been angry, agitated and threatening towards them. They report they are afraid of him and have been locking their bedroom door at night. Pt reports only having problems with anxiety and would like a medication change but is not in agreement with need for inpatient psychiatric admission. Since pt was a recent [facility] discharge he was seen by Dr Veliz in the ED and after assessment placed on a PEC for admission to [facility]. Primary Language? South Sudanese Language(s) Spoken At Home: South Sudanese Living Situation Other Living Arrangement: relative's/guardian's libertad Feel Safe Where You Are Living Yes Feel Safe in Relationships? Yes Allergies - Coded Allergies: No Known Allergies (10/20/17) Current Medications - Scheduled Medications Clonazepam (Klonopin) 0.5 MG TABLET 3 TAB PO AT BEDTIME anxiety #45 TAB Prescribed by Javi Veliz MD on 10/13/17 Fluphenazine Decanoate 25 MG/ML VIAL 1 ML IM Q 2 WEEKS schizophrenia #1 VIAL Prescribed by Javi Veliz MD on 10/13/17 Consequences of Psych Med Use: pt has hx of medication non-compliance. received flufenazine dec injectable last also prescribed Klonopin. Past History Past Medical History Neurological: History of Lyme disease 3-4 years ago. EENT: allergies Cardiovascular: NONE Respiratory: childhood asthma (diagnosed age 9 yrs) Gastrointestinal: NONE Hepatic: NONE Renal: NONE Musculoskeletal: plantar fasciitis, right foot. Psychiatric: schizo affective disorder Endocrine: NONE Blood Disorders: NONE Cancer(s): NONE PELTS SKINNER/Reproductive: NONE Past Surgical History Surgical History: appendectomy, Closed reduction of right knee dislocation /Family History Place/Country of Origin: [place], [place] Childhood Family Constellation: Both parents and a sister Primary Childhood Caretakers: father, mother Family Life During Childhood: "normal" DCF Involvement? No Relationship w/Mother: He states that he never talks to her Relationship w/Father: The patient reports that he never talks to his father Any Sibling(s)? Yes Sibling's Gender(s)/Age(s): female Sibling 1: Relationship w/Sibling(s): He states that he does not have a relationship with his sister, noting that she resides in [place] and that they text occasionally. Relationship w/Friends: He states that he does have friend and that those relationship are "very good." Family Psych/Sub Abuse/Add Hx: None Abuse/Trauma History Trauma History/Current Trauma: Denies Patient's Age at Time of Trauma: 1 Abuse/Trauma Treatment: none Legal History Legal Guardian/Address/Phone: Self Hx of Juvenile Legal Charges? No Hx of Adult Legal Charges? Yes If Yes: The patient states that he has been arrested on 2-3 occasions and that one was at "[employer] in [facility], because the special education secretary was harrassing him." List/Date Most Recent Lgl Chgs: The patient states "that was 13 years ago in [place]." Chgs/Dts/Incarcerations/Sentnc Unknown Civil Proceedings: N/A Domestic Relations Court: N/A Child Protective Serv Involvmnt N/A Psychosocial History Primary Support System: " I support myself." The patient does state that his fish are his best friends. Strengths/Capabilities: The patient does appear to have supportive parents and is on social security disability. Physical Limitations (Interventions): Per history- Ambulatory, but demonstrates a limp, favoring his right foot. Last Physical: 2016 History of Blackouts? No Last Blackout: N/A ADL Limitations: None noted [place]/Social/Peer Relations The patient reports that he does have some friends and that those relationships are "very good." Meaningful Activities: Reading books, hiking, music, writting, going to the beach or going to the [place]. Childhood Druze: no anglican stated Current Buddhist Affiliation: no anglican stated Is Spirituality Important to You? "no" Patient's Ethnicity: "white" would not elaborate. Cultural/Ethnic Issues: None noted Are There Developmental Issues? No Milestones Achieved: WNL Psychiatric Treatment History Psych Treatment Inpatient Treatment Yes Outpatient Treatment Yes Reason for Treatment psychosis/anxiety Response to Treatment Most recently has been attending [facility] outpatient and see his Elifamanda mendez APRN His most recent admission at [facility] was October 2016 --multiple prior inpatient psychiatric hopsitalization on [facility], [place] and other hospital (last [facility], 10/15/16-10/21/16). --prior [facility] IOP/OPS --discharged from [facility] on 10/31/16 for dissruptive bx Treatment of Prior Episodes: The patient states that he has been in multiple treament episodes, however would not disclose them. Diagnosis: schizoaffective disorder Psychodynamic Issues: Chronic Mental Health issues Risk Factors: high anxiety/distress, SA/MH hospitalized, substance abuse, isolate/no social support, poor impulse control, male Substance Use/Abuse History Drug Use/Abuse:Min 12 mo hx Substance Used/Abused Marijuana How often unknown frequency as pt denies use despite positve tox screen Have Had Periods of Sobriety? No Explain: pt consistently tests positive for cannabis but pt denies use Have You Ever Attended AA? No Symptoms of Use: cannabis use Substance Abuse Treatment Substance Abuse Treatment Inpatient Treatment No Outpatient Treatment No Sexual History Sexual Concerns: * Per records, his ex-girlfriend has noted that he can be sexually inappropriate in public. Education History Highest Level of Education: bachelor's degree Highest Grade Completed: College Bachelors in Physics and [place]ien Vocational Year Completed: N/A Number of College Years: 4 College Degree/Major: Physics and [place]ien BS Other Degree(s): Pt stated he got into [employer] for Masters but did not go Preferred Learning Style: visual, auditory, experiential HX of Learning Difficulties: None reported Barriers to Learning: None reported Special Communication Needs: None reported Employment History Not in Labor Force: Disabled No. of Jobs in Last 5 Years: 0 Attendance: N/A Comments: N/A History Have You Been in The ? No If Yes, Explain: N/A Type of Discharge: N/A Date of Discharge: N/A Current Mental Status Mental Status Orientation: Person, Place, Situation Affect: Anxious, Angry Speech: WNL Behaviors Thought Process: Irrational Memory: WNL Insight: Fair SI/HI Risk Assessment Past Suicidal Ideation/Attempts No Current Suicidal Ideation/Att No Past Homicidal Ideation/Att: No Current Homicidal Ideation/Attempts No Degree of Intent: None Danger To: Others, Self Gravely Disabled: Inability, Lack of Insight, Poor Impulse Control, Poor Judgment Lethality Ratin - Conclusion and Recommendations for treatment - and discharge planning Summary: Pt presents as difficult to engage. providing minimal answers. Pt expressing frustration that he doesn't need to be in the hospital. Pt advocating for med change and doesn't want to remain on dec injectable. Medications will need to be further assessed by his primary CPS team.
--- NOTE | 2017-10-21 11:18 | CP SOUTH PROGRESS NOTE PSYCH ---
Psych (Inpt) Progress Note Progress Note Include the following elements, when applicable: Involvement in the active treatment of the patient with behavioral observations of the patient and the patient's response to the treatment. Review of the ongoing treatment process in the context of the treatment plan. Indication of how multi-disciplinary staff members are carrying out the treatment plan. Plans for future interventions and recommendations for revision of the treatment plan. Liaison with other physicians/providers. Progress Note: Pt reports refused prolixin overnight as does not want depot. Pt amenable to taking prolixin for now with the hope that parents will change thier mind about having him only only on the condition that he takes a depot med. He feels that depot meds "give me panic attacks." Pt will take prolixin tonight. 5mg now dose given. Denies SI or HI. Does not feel anything is wrong with him. Current Medications Sig/Fran Start time Last Medication Dose Route Stop Time Status Admin Acetaminophen 650 MG Q4P PRN 10/20 1100 AC PO Al Hydroxide/Mg 30 ML Q4 HRS NEEDED PRN 10/20 1100 AC Hydroxide PO Benztropine Mesylate 1 MG Q6P PRN 10/20 0915 AC PO Clonazepam 1.5 MG AT BEDTIME 10/20 2100 AC 10/20 PO 10/278 Diphenhydramine HCl 50 MG AT BEDTIME 10/20 2100 AC PO Fluphenazine HCl 5 MG AT BEDTIME 10/20 2100 AC PO Haloperidol 5 MG Q6P PRN 10/20 0915 AC PO Lorazepam 0 .STK-MED ONE 10/20 1628 DC PO Lorazepam 1 MG Q6-PRN PRN 10/20 1030 AC PO Lorazepam 2 MG Q6P PRN 10/20 0915 AC 10/21 PO 0912 Magnesium Hydroxide 30 ML AT BEDTIME PRN 10/20 1100 AC PO Laboratory Tests 10/20 10/19 0647 2108 Chemistry Sodium (137 - 145 mmol/L) 143 Potassium (3.5 - 5.1 mmol/L) 4.1 Chloride (98 - 107 mmol/L) 105 Carbon Dioxide (22 - 30 mmol/L) 27 Anion Gap (5 - 16) 11 BUN (9 - 20 mg/dL) 13 Creatinine (0.7 - 1.2 mg/dL) 0.9 Estimated GFR (>60 ml/min) > 60 BUN/Creatinine Ratio (7 - 25 %) 14.4 Glucose (65 - 99 mg/dL) 105 H Calcium (8.4 - 10.2 mg/dL) 8.8 Total Bilirubin (0.2 - 1.3 mg/dL) 0.3 AST (17 - 59 U/L) 19 ALT (21 - 72 U/L) 24 Alkaline Phosphatase (< 127 U/L) 55 Total Protein (6.3 - 8.2 g/dL) 6.3 Albumin (3.5 - 5.0 g/dL) 3.7 Globulin (1.9 - 4.2 gm/dL) 2.6 Albumin/Globulin Ratio (1.1 - 2.2 %) 1.4 Hematology CBC w Diff NO MAN DIFF REQ WBC (4.8 - 10.8 /CUMM) 10.2 RBC (4.70 - 6.10 /CUMM) 4.49 L Hgb (14.0 - 18.0 G/DL) 13.0 L Hct (42 - 52 %) 39.2 L MCV (80.0 - 94.0 FL) 87.4 MCH (27.0 - 31.0 PG) 28.9 MCHC (33.0 - 37.0 G/DL) 33.1 RDW (11.5 - 14.5 %) 13.7 Plt Count (130 - 400 /CUMM) 235 MPV (7.4 - 10.4 FL) 10.2 Gran % (42.2 - 75.2 %) 60.9 Lymphocytes % (20.5 - 51.1 %) 28.1 Monocytes % (1.7 - 9.3 %) 7.3 Eosinophils % (0 - 5 %) 3.3 Basophils % (0.0 - 2.0 %) 0.4 Absolute Granulocytes (1.4 - 6.5 /CUMM) 6.2 Absolute Lymphocytes (1.2 - 3.4 /CUMM) 2.9 Absolute Monocytes (0.10 - 0.60 /CUMM) 0.7 H Absolute Eosinophils (0.0 - 0.7 /CUMM) 0.3 Absolute Basophils (0.0 - 0.2 /CUMM) 0 Toxicology Urine Opiates Screen (>2000 NG/ML) < 100 Methadone Screen (>300 NG/ML) < 40 Barbiturate Screen (>200 NG/ML) < 60 Ur Phencyclidine Scrn (>25 NG/ML) < 6.00 Amphetamines Screen (>1000 NG/ML) < 100 U Benzodiazepines Scrn (>200 NG/ML) < 85 Urine Cocaine Screen (>300 NG/ML) < 50 Urine Cannabis Screen (>50 NG/ML) 79.10 H Serum Alcohol (<10 MG/DL) < 10.0 Vital Signs Date Time Temp Pulse Resp B/P B/P Pulse O2 O2 Flow FiO2 Mean Ox Delivery Rate 10/21 0753 97.1 71 120/60 10/20 2236 73 123/69 10/20 1815 97.8 92 134/86 10/20 1743 98.2 81 18 131/78 99 10/20 1121 98.7 61 18 98/54 98 Room Air MSE General appearance: good hygiene and grooming; Attitude: cooperative; Eye contact: none; Movement: no psychomotor agitation or slowing; Speech: nl fluency, nl rate/rhythm, nl volume, nl prosody; Mood: "fine" Affect: extremely irritable, very flat, appropriate, constricted, non-labile, congruent; Thought process: linear and goal-directed; Thought content: denied SI or HI, no paranoid ideation; Perception: denied hallucinations- auditory, visual, does not appear to be responding to internal stimuli; I/J: limited A/P:Pt with hx of schizoaffective disorder now with medication noncompliance. - 5mg prolixin now and 5mg at bedtime. -Continue current medication regimen -Encourage integration into the milieu
[2017-10-21 12:48] VITALS: BP 128/75
[2017-10-21 16:18] VITALS: BP 135/67
--- NOTE | 2017-10-21 19:01 | PN- Gen Med ---
Assessment/Plan Medical Assessment: 36 yo M admitted for recurrent panic attacks. Supposedly was prescribed injections that didn't help much 1. Panic attacks - Management per Psych team. 2. Albuterol inhaler as needed for asthma. 3. Smoking cessation counseling, nicotine patch - patient does not wish to quit smoking 4. Patient to resume acne medication and allergy pills when he is discharged back home. DVT prophylaxis - low risk, early ambulation. Problem List: 1. Schizoaffective disorder 2. Cigarette smoker 3. Asthma Subjective Follow-up For: Panic attacks Complaints: no complaints Review of Systems Constitutional: Reports: no symptoms. Cardiovascular: Reports: no symptoms. Respiratory: Reports: no symptoms. Gastrointestinal: Reports: no symptoms. Genitourinary: Reports: no symptoms. Objective Last 24 Hrs of Vital Signs/I&O Vital Signs Date Time Temp Pulse Resp B/P B/P Pulse O2 O2 Flow FiO2 Mean Ox Delivery Rate 10/21 1618 77 135/67 10/21 1248 84 128/75 10/21 0753 97.1 71 120/60 10/20 2236 73 123/69 Intake & Output 10/21 1600 10/21 0800 10/21 0000 Intake Total Output Total Balance Patient 153 lb Weight Physical Exam General Appearance: Alert, Oriented X3 Neck: Supple Cardiovascular: Normal S1, Normal S2 Lungs: Clear to Auscultation Abdomen: Soft Neurological: No focal neurological deficit Current Medications: Current Medications Sig/Fran Start time Last Medication Dose Route Stop Time Status Admin Acetaminophen 650 MG Q4P PRN 10/20 1100 AC PO Al Hydroxide/Mg 30 ML Q4 HRS NEEDED PRN 10/20 1100 AC Hydroxide PO Benztropine Mesylate 1 MG Q6P PRN 10/20 0915 AC PO Clonazepam 1.5 MG AT BEDTIME 10/20 2100 AC 10/20 PO 10/27 2059 2238 Diphenhydramine HCl 50 MG AT BEDTIME 10/20 2100 AC PO Fluphenazine HCl 5 MG ONCE ONE 10/21 1130 DC 10/21 PO 10/21 1131 1403 Fluphenazine HCl 5 MG AT BEDTIME 10/20 2100 AC PO Haloperidol 5 MG Q6P PRN 10/20 0915 AC PO Lorazepam 1 MG Q6-PRN PRN 10/20 1030 AC 10/21 PO 1814 Lorazepam 2 MG Q6P PRN 10/20 0915 AC 10/21 PO 0912 Magnesium Hydroxide 30 ML AT BEDTIME PRN 10/20 1100 AC PO
[2017-10-21 19:58] VITALS: BP 118/66
[2017-10-22 07:43] VITALS: BP 113/78
--- NOTE | 2017-10-22 11:12 | CP SOUTH PROGRESS NOTE PSYCH ---
Psych (Inpt) Progress Note Progress Note Include the following elements, when applicable: Involvement in the active treatment of the patient with behavioral observations of the patient and the patient's response to the treatment. Review of the ongoing treatment process in the context of the treatment plan. Indication of how multi-disciplinary staff members are carrying out the treatment plan. Plans for future interventions and recommendations for revision of the treatment plan. Liaison with other physicians/providers. Progress Note: Pt did take prolixin yesterday. Still maintained that does not want depot in future. Denies SI or HI. Did speak to family yesterday. Current Medications Sig/Fran Start time Last Medication Dose Route Stop Time Status Admin Acetaminophen 650 MG Q4P PRN 10/20 1100 AC PO Al Hydroxide/Mg 30 ML Q4 HRS NEEDED PRN 10/20 1100 AC Hydroxide PO Benztropine Mesylate 1 MG .STK-MED ONE 10/21 1917 DC PO 10/21 1918 Benztropine Mesylate 1 MG Q6P PRN 10/20 0915 AC 10/21 PO 191 Clonazepam 1.5 MG AT BEDTIME 10/20 2100 AC 10/21 PO 10/27 2058 222 Diphenhydramine HCl 50 MG AT BEDTIME 10/20 2100 AC 10/21 PO 222 Fluphenazine HCl 5 MG ONCE ONE 10/21 1130 DC 10/21 PO 10/21 1131 1403 Fluphenazine HCl 5 MG AT BEDTIME 10/20 2100 AC 10/21 PO 222 Haloperidol 5 MG .STK-MED ONE 10/21 1917 DC PO 10/21 191 Haloperidol 5 MG Q6P PRN 10/20 0915 AC 10/21 PO 1918 Lorazepam 1 MG Q6-PRN PRN 10/20 1030 AC 10/21 PO 1814 Lorazepam 2 MG Q6P PRN 10/20 0915 AC 10/21 PO 0912 Magnesium Hydroxide 30 ML AT BEDTIME PRN 10/20 1100 AC PO Laboratory Tests 10/20 10/19 0647 2108 Chemistry Sodium (137 - 145 mmol/L) 143 Potassium (3.5 - 5.1 mmol/L) 4.1 Chloride (98 - 107 mmol/L) 105 Carbon Dioxide (22 - 30 mmol/L) 27 Anion Gap (5 - 16) 11 BUN (9 - 20 mg/dL) 13 Creatinine (0.7 - 1.2 mg/dL) 0.9 Estimated GFR (>60 ml/min) > 60 BUN/Creatinine Ratio (7 - 25 %) 14.4 Glucose (65 - 99 mg/dL) 105 H Calcium (8.4 - 10.2 mg/dL) 8.8 Total Bilirubin (0.2 - 1.3 mg/dL) 0.3 AST (17 - 59 U/L) 19 ALT (21 - 72 U/L) 24 Alkaline Phosphatase (< 127 U/L) 55 Total Protein (6.3 - 8.2 g/dL) 6.3 Albumin (3.5 - 5.0 g/dL) 3.7 Globulin (1.9 - 4.2 gm/dL) 2.6 Albumin/Globulin Ratio (1.1 - 2.2 %) 1.4 Hematology CBC w Diff NO MAN DIFF REQ WBC (4.8 - 10.8 /CUMM) 10.2 RBC (4.70 - 6.10 /CUMM) 4.49 L Hgb (14.0 - 18.0 G/DL) 13.0 L Hct (42 - 52 %) 39.2 L MCV (80.0 - 94.0 FL) 87.4 MCH (27.0 - 31.0 PG) 28.9 MCHC (33.0 - 37.0 G/DL) 33.1 RDW (11.5 - 14.5 %) 13.7 Plt Count (130 - 400 /CUMM) 235 MPV (7.4 - 10.4 FL) 10.2 Gran % (42.2 - 75.2 %) 60.9 Lymphocytes % (20.5 - 51.1 %) 28.1 Monocytes % (1.7 - 9.3 %) 7.3 Eosinophils % (0 - 5 %) 3.3 Basophils % (0.0 - 2.0 %) 0.4 Absolute Granulocytes (1.4 - 6.5 /CUMM) 6.2 Absolute Lymphocytes (1.2 - 3.4 /CUMM) 2.9 Absolute Monocytes (0.10 - 0.60 /CUMM) 0.7 H Absolute Eosinophils (0.0 - 0.7 /CUMM) 0.3 Absolute Basophils (0.0 - 0.2 /CUMM) 0 Toxicology Urine Opiates Screen (>2000 NG/ML) < 100 Methadone Screen (>300 NG/ML) < 40 Barbiturate Screen (>200 NG/ML) < 60 Ur Phencyclidine Scrn (>25 NG/ML) < 6.00 Amphetamines Screen (>1000 NG/ML) < 100 U Benzodiazepines Scrn (>200 NG/ML) < 85 Urine Cocaine Screen (>300 NG/ML) < 50 Urine Cannabis Screen (>50 NG/ML) 79.10 H Serum Alcohol (<10 MG/DL) < 10.0 Vital Signs Date Time Temp Pulse Resp B/P B/P Pulse O2 O2 Flow FiO2 Mean Ox Delivery Rate 10/22 0643 97.9 82 113/78 10/21 1958 97.7 68 118/66 10/21 1618 77 135/67 10/21 1248 84 128/75 MSE General appearance: good hygiene and grooming; Attitude: cooperative; Eye contact: none; Movement: no psychomotor agitation or slowing; Speech: nl fluency, nl rate/rhythm, nl volume, nl prosody; Mood: "ummmmm,,," Affect: extremely irritable, very flat, appropriate, constricted, non-labile, congruent; Thought process: linear and goal-directed; Thought content: denied SI or HI, no paranoid ideation; Perception: denied hallucinations- auditory, visual, does not appear to be responding to internal stimuli; I/J: limited A/P:Pt with hx of schizoaffective disorder now with medication noncompliance. -Continue current medication regimen -Encourage integration into the milieu
[2017-10-22 12:26] VITALS: BP 120/50
[2017-10-22 15:45] VITALS: BP 106/56
[2017-10-22 20:01] VITALS: BP 125/71
[2017-10-23 08:10] VITALS: BP 108/62
--- NOTE | 2017-10-23 10:24 | SOCIAL WORKER PROG NOTE PSYCH ---
Social Work Progress Note Progress Note Determination Status: PENDED The services requested require additional review. You will be contacted regarding the status of this request if further information is needed. An authorization decision will be made within the required timeframes and details of that decision may be found under the member's authorization history. Member Name Member ID Member Subscriber Name Subscriber ID RYDER CLEMONS [id number] RYDER CLEMONS [id number] Pended Authorization # Client Authorization # Type of Request [id number] CONCURRENT Date of Admission/ Start of Services Requested From Submission Date 10/20/2017 10/23/2017 10/23/2017 Level of Service Type of Service Level of Care Type of Care [facility]PATIENT/[facility] Reason Code P76 Provider Name & Address Provider ID Provider Alternate ID NPI # for Authorization HUSEYIN MCGRATH [address] [place] [id number]
--- NOTE | 2017-10-23 10:48 | CP SOUTH PROGRESS NOTE PSYCH ---
Psych (Inpt) Progress Note Progress Note Vital Signs Date Time Temp Pulse Resp B/P B/P Pulse O2 O2 Flow FiO2 10/23 1510 73 116/60 10/23 1217 73 116/60 10/23 0810 97.3 79 108/62 10/22 2000 97.7 90 125/71 10/22 1545 75 106/56 MSE The patient was alert and oriented to time, place, and person. He started off calm and cooperative and gradually became more and more argumentative. He reported that he is "100% sure" that the symptoms that he was having at home where because of his Prolixin injection. He described what sounded like akathisia which is reasonable but then he claimed that he was having seizures but he was awake and did not lose consciousness and he also insisted that he was panic having panic attacks because of it. The patient has been on Prolixin Decanoate injections for about 3 years in the past reportedly he did not have side effects from it back then. no psychomotor agitation or slowing; the patient was talkative as the interview progressed and had an angry tone. Memory details he would respond "rather not talk about that or let us not get into that." He denied that he is very depressed and he denied feeling hopeless or worthless denied wishing or thinking of suicide his affect was very irritable He was guarded but coherent, there were no specific delusions during the interview but it seems that he has like a paranoid attitude in general He seem to have reasonable attention and concentration and information processing and no evidence of short-term deficits. Assessment: Dominik Roque is a 37-year-old Single White Male who was admitted to the inpatient psychiatric unit on 10/20/2017 due to what he believes where side effects from the Prolixin decanoate injection that he received a days prior to that. The description in the crisis social staff worker's notes including that collateral from the parents suggest that the patient may have had some side effects but also was experiencing what sounded like acute psychotic decompensation with agitation paranoia and parents being fearful and locking their bedroom door and hitting him talking to himself in the basement. Today he indicated that he has no intention of taking the Prolixin decanoate injection again. I offered him some alternative but he stated that other alternatives as "him sexual side effects and that he is interested in continuing the Prolixin orally and that he is agreeable to having a visiting nurse come every day to see him take his oral Prolixin Plan: Change Prolixin to 7.5 mg every morning Add propranolol 20 mg 3 times a day because the patient is complaining about restlessness and may be some akathisia although that was not evident during the session. Laboratory Tests 10/20 10/19 0647 2108 Chemistry Sodium (137 - 145 mmol/L) 143 Potassium (3.5 - 5.1 mmol/L) 4.1 Chloride (98 - 107 mmol/L) 105 Carbon Dioxide (22 - 30 mmol/L) 27 Anion Gap (5 - 16) 11 BUN (9 - 20 mg/dL) 13 Creatinine (0.7 - 1.2 mg/dL) 0.9 Estimated GFR (>60 ml/min) > 60 BUN/Creatinine Ratio (7 - 25 %) 14.4 Glucose (65 - 99 mg/dL) 105 H Calcium (8.4 - 10.2 mg/dL) 8.8 Total Bilirubin (0.2 - 1.3 mg/dL) 0.3 AST (17 - 59 U/L) 19 ALT (21 - 72 U/L) 24 Alkaline Phosphatase (< 127 U/L) 55 Total Protein (6.3 - 8.2 g/dL) 6.3 Albumin (3.5 - 5.0 g/dL) 3.7 Globulin (1.9 - 4.2 gm/dL) 2.6 Albumin/Globulin Ratio (1.1 - 2.2 %) 1.4 Hematology CBC w Diff NO MAN DIFF REQ WBC (4.8 - 10.8 /CUMM) 10.2 RBC (4.70 - 6.10 /CUMM) 4.49 L Hgb (14.0 - 18.0 G/DL) 13.0 L Hct (42 - 52 %) 39.2 L MCV (80.0 - 94.0 FL) 87.4 MCH (27.0 - 31.0 PG) 28.9 MCHC (33.0 - 37.0 G/DL) 33.1 RDW (11.5 - 14.5 %) 13.7 Plt Count (130 - 400 /CUMM) 235 MPV (7.4 - 10.4 FL) 10.2 Gran % (42.2 - 75.2 %) 60.9 Lymphocytes % (20.5 - 51.1 %) 28.1 Monocytes % (1.7 - 9.3 %) 7.3 Eosinophils % (0 - 5 %) 3.3 Basophils % (0.0 - 2.0 %) 0.4 Absolute Granulocytes (1.4 - 6.5 /CUMM) 6.2 Absolute Lymphocytes (1.2 - 3.4 /CUMM) 2.9 Absolute Monocytes (0.10 - 0.60 /CUMM) 0.7 H Absolute Eosinophils (0.0 - 0.7 /CUMM) 0.3 Absolute Basophils (0.0 - 0.2 /CUMM) 0 Toxicology Urine Opiates Screen (>2000 NG/ML) < 100 Methadone Screen (>300 NG/ML) < 40 Barbiturate Screen (>200 NG/ML) < 60 Ur Phencyclidine Scrn (>25 NG/ML) < 6.00 Amphetamines Screen (>1000 NG/ML) < 100 U Benzodiazepines Scrn (>200 NG/ML) < 85 Urine Cocaine Screen (>300 NG/ML) < 50 Urine Cannabis Screen (>50 NG/ML) 79.10 H Serum Alcohol (<10 MG/DL) < 10.0 Vital Signs Date Time Temp Pulse Resp B/P B/P Pulse O2 O2 Flow FiO2 Mean Ox Delivery Rate 10/22 0743 97.9 82 113/78 06/ 1958 97.7 68 118/66 06/02 1618 77 135/67 06/02 1248 84 128/75 MSE General appearance: good hygiene and grooming; Attitude: cooperative; Eye contact: none; Movement: no psychomotor agitation or slowing; Speech: nl fluency, nl rate/rhythm, nl volume, nl prosody; Mood: "ummmmm,,," Affect: extremely irritable, very flat, appropriate, constricted, non-labile, congruent; Thought process: linear and goal-directed; Thought content: denied SI or HI, no paranoid ideation; Perception: denied hallucinations- auditory, visual, does not appear to be responding to internal stimuli; I/J: limited A/P:Pt with hx of schizoaffective disorder now with medication noncompliance. -Continue current medication regimen -Encourage integration into the milieu
[2017-10-23 12:17] VITALS: BP 116/60
[2017-10-23 15:59] VITALS: BP 118/58
--- NOTE | 2017-10-23 18:38 | SOCIAL WORKER PROG NOTE PSYCH ---
Social Work Progress Note Progress Note This technical document writer met with patient. Patient presented as irritable and agitated, however, denied feeling so when asked by this technical document writer. Patient stated that he would like to receive visiting nurse services, "the pill delivery supervisor", when he discharges from [facility]. Patient stated that he no longer wants injections as he feels that it caused seizures. Patient stated that he did not attend the intake with [facility] following the last [facility] discharge as he was not feeling well due to the injection he received during last inpatient admission. Patient denied SI/HI/AH/VH. He reported occassional MJ use. He denied any other substance use. Patient was agreeable to a family meeting with his parents and this technical document writer left a vm for them in interest of scheduling one. This technical document writer contacted patient's insurance ([phone]) in interest of completing a concurrent review and spoke with Emeli Mckinley in customer service. She stated that a reviewer will contact this technical document writer for a review as Swathi Pizarro (who had initially been assigned as the reviewer) is no longer the reviewer. She stated that this technical document writer did not need to take any additional action until the assigned reviewer makes contact and that we will "not be penalized in any way shape or form." The reference number for this call is [id number]. For future calls, Emeli instructed this technical document writer to call [phone].
[2017-10-23 19:47] VITALS: BP 108/66
[2017-10-24 07:49] VITALS: BP 100/70
--- NOTE | 2017-10-24 09:50 | CP SOUTH PROGRESS NOTE PSYCH ---
Psych (Inpt) Progress Note Progress Note Vital Signs Date Time Temp Pulse Resp B/P B/P Pulse O2 Flow FiO2 10/24 1348 76 128/62 10/24 1201 76 128/62 10/24 0759 96.6 72 18 100/70 06 0749 96.6 72 100/70 10/23 2118 71 124/78 10/23 1947 96.7 79 108/66 10/23 1559 88 118/58 Mental status examination: Dominik reported that he feels that he does not to be on the inpatient psychiatric unit. The patient was alert and oriented to time, place, and person. Today he will continue to be somewhat argumentative about medications, discharge, whether he wants his parents involved or not, and aftercare plans. He remains convinced that the reason that he is back in the hospital be it is because of the side effects of the Prolixin injection. There was some mild akathisia today, and I explained to him that is the reason behind the propranolol and we do not think that he has blood pressure. He has refused this morning's dose but reported that he will consider taking it again. He also wanted the Klonopin to be given with the Prolixin because it was helping with the restlessness that comes from the Prolixin. The patient denies pretty much all symptoms. He denied that he is very depressed and he denied feeling hopeless or worthless denied wishing or thinking of suicide his affect was very irritable He was guarded but coherent, there were no specific delusions during the interview but it seems that he has like a paranoid attitude in general. He seem to have reasonable attention and concentration and information processing and no evidence of short-term deficits. Assessment: Dominik Roque is a 37-year-old Single White Male who was admitted to the inpatient psychiatric unit on 10/20/2017 due to what he believes where side effects from the Prolixin decanoate injection that he received 8 days prior to that. The patient is not much different than in the previous admissions. He remains guarded and argumentative and back to asking to be discharged to his friend and that he does not want to live with his parents. In the second breath however he is asking for a family meeting with his parents. He is not willing to consider alternatives to the Prolixin claiming that other medications have a lot of sexual side effects. I suggested clozapine but he did not seem to be open to the idea of doing blood work at this point for monitoring. Plan: continue Prolixin 7.5 mg every morning Continue propranolol 20 mg 3 times a day Change Klonopin to 1 mg in the morning with the Prolixin.
[2017-10-24 12:01] VITALS: BP 128/62
--- NOTE | 2017-10-24 13:09 | SOCIAL WORKER PROG NOTE PSYCH ---
See Addendum Social Work Progress Note Progress Note This typewriters functional tester met with patient. He presented as agitated/irritable, and while initially denying this, patient ultimately admitted to feeling annoyed about being admitted to the hospital. Patient stated that he is unsure as to why he is back in the hospital and why his parents brought him to the ER. He was agreeable to a family meeting. This typewriters functional tester informed patient that his parents will be called this afternoon in interest of scheduling a family meeting. Patient maintains that he does not want to continue with injections, but is agreeable to a visiting nurse. He also states that he would like to return home to his parents upon discharge. Patient stated that his parents visited last night and it was a "bad visit", however, could not identify why this was so. This typewriters functional tester spoke with and Mrs Roque ([phone]) by phone. They were not willing to schedule a family meeting at this time, but agreed to contact me should they wish to in the future. They expressed wishes for their son to be "better" which they defined as "not psychotic," improved communication with parents and showing respect. 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 They stated that they visited the patient on this unit last night and he was agitated and disrespectful. This typewriters functional tester inquired about interest in conservatorship, as both parents had expressed during the patient's previous admission. It appeared that they were hesitant about this. They were informed that this typewriters functional tester contacted the [place] [facility] for general information on conservatorship (no information was provided regarding this patient) and informed and Mrs Roque that information on petitioning for conservatorship could be obtained online. They thanked this typewriters functional tester for the call and will call should they wish to schedule a family meeting.
[2017-10-24 15:50] VITALS: BP 122/60
[2017-10-24 20:19] VITALS: BP 125/65
[2017-10-25 08:21] VITALS: BP 105/54
--- NOTE | 2017-10-25 10:40 | SOCIAL WORKER PROG NOTE PSYCH ---
Social Work Progress Note Progress Note Patient's BHP concurrent is not due today 10/25. IT is due Thurs. 10/26 - Auth -10/25/17, next review is 10/26/17 - AUTH [id number]. NOTE: There is an "AUTH" in the listing that is an ERROR - from admit 10/20/17-10/24/17 under ID#[id number] (NOT A MEDICAID ID). This may have caused confusion on which date AUTH is due. Please disregard this.
[2017-10-25 12:36] VITALS: BP 108/64
--- NOTE | 2017-10-25 12:38 | CP SOUTH PROGRESS NOTE PSYCH ---
Psych (Inpt) Progress Note Progress Note The patient's progress, current treatment plan, and aftercare plan were discussed and the treatment team meeting this morning. The treatment team meeting included: social work, nursing staff, therapy staff, and psychiatrist vital Signs Date Time Temp Pulse B/P B/P Pulse O2 10/25 1236 68 108/64 10/25 0821 97.3 68 105/54 10/24 2154 98.0 75 125/65 10/24 2019 98.0 75 125/65 Mental status examination: Dominik reported that he had a meeting with his parents last night and he reported that he change his mind and now wants to go to live with his parents again after his discharge. He reported that he is not interested in the crisis/ respite bed. Patient was alert and oriented to time, place, and person. He did not show any evidence of parkinsonian tremors and no evidence of dystonia or akathisia. He continued to refuse propranolol even after it was explained to him that it was not for a blood pressure but for the restlessness that he was feeling. He continues to to deny all symptoms. He denied that he is very depressed and he denied feeling hopeless or worthless denied wishing or thinking of suicide his affect was very irritable. He was guarded but coherent, there were no specific delusions during the interview but it seems that he has like a paranoid attitude in general. He denied hallucinations. Assessment: A 37-year-old Single White Male who was admitted to Inpatient psychiaty on 2017 due to what he believed to be side effects from the Prolixin decanoate injection that he received 8 days prior to that. The patient remains guarded. He has been back and forth about whether he wants to live with his parents after his discharge or not. Today he is back to saying that he does want to live with his parents after discharge and he is agreeable to his father getting conservatorship or petitioning for one at least Plan: continue Prolixin 7.5 mg every morning Discontinue propranolol as the patient refuses to take it Continue Klonopin 1 mg in the morning with the Prolixin. Plan: continue Prolixin 7.5 mg every morning Continue propranolol 20 mg 3 times a day Change Klonopin to 1 mg in the morning with the Prolixin.
--- NOTE | 2017-10-25 16:06 | SOCIAL WORKER PROG NOTE PSYCH ---
See Addendum Social Work Progress Note Progress Note This newspaper writer received call from Jesika alexander [place] ([phone], ext. [phone]) requesting additional information for the concurrent review (treatment plan, discharge plans and barriers to discharge). This newspaper writer returned the call and left a vm with this information and a call back number.
[2017-10-25 16:28] VITALS: BP 135/87
--- NOTE | 2017-10-25 17:35 | SOCIAL WORKER PROG NOTE PSYCH ---
See Addendum Social Work Progress Note Progress Note This typewriter operator automatic met with patient. He presented as agitated and irritable, though denying this when this typewriter operator automatic observed this with him. Patient provided very brief responses and limited engagement in the conversation. He is not refusing a referral to crisis and respite and stated that he would like to discharge to his parents. He stated that they visited last night and informed him that they would pursue conservatorship. He requested that this typewriter operator automatic contact them. 4:21pm This typewriter operator automatic spoke with Mrs. Roque in response to her vm and the patient's request to call his parents. She confirmed that they visited with the patient last night and will petition for conservatorship. She stated that she would like to see the patient in care home care to address his mental health. She felt that he was "a little bit better" last night though still "not thinking clearly" and agitated. She and her have not decided on whether they will request to be conservators or someone else, however, feels that it would be better if they were the conservators. This is something that they will consider and discuss further. Patient's parents will bring the document for Dr. Veliz to complete next time they visit and will leave it with the nurse's station (nursing staff was informed of this). They feel that it is too early to schedule a family meeting at this time and will contact this typewriter operator automatic when they are ready to schedule the family meeting. 5:33pm This typewriter operator automatic returned a call from Mikael Valadez in which he expressed interest in meeting with the patient on . Patient stated that he does want to meet with him and this was relayed to Mikael via ([phone]).
[2017-10-25 19:54] VITALS: BP 107/67
[2017-10-26 07:40] VITALS: BP 106/50
--- NOTE | 2017-10-26 09:11 | CP SOUTH PROGRESS NOTE PSYCH ---
Psych (Inpt) Progress Note Progress Note Treatment team [facility]FRANCIE, RN, [facility], and psychiatristdiscussed the patient 's progress, current treatment plan, and aftercare plan were discussed and the treatment team meeting this morning. Mental status examination: Dominik reported that he is no longer going to take fluphenazine He was willing to listen to some of the alternatives including the clozapine, olanzapine, and Trilafon Patient was alert and oriented to time, place, and person. He did not show any evidence of parkinsonian tremors and no evidence of dystonia . He continues to to deny hallucinations, denies feeling paranoid, denies feeling depressed. He denied feeling hopeless or worthless denied wishing or thinking of suicide his affect was very irritable. He was guarded but coherent, there were no specific delusions during the interview but it seems that he has like a paranoid attitude in general with extreme suspiciousness, guardedness, adversarial tone, irritability and argumentativeness. Assessment: A 37-year-old Single White Male who was admitted to Inpatient psychiaty on 2017 due to what he believed to be side effects from the Prolixin decanoate injection that he received 8 days prior to that. The patient remains guarded. He reported today that he is no longer interested in continuing fluphenazine. We discussed 3 alternatives. After it I explained the benefits and the side effects of all 3 of all alternatives, he opted to go with Trilafon (perphenazine) Plan: D/C Prolixin Start Perphenazine 4 mg BID Increase Klonopin to 1 mg BID Assessment: A 37-year-old Single White Male who was admitted to Inpatient psychiaty on 2017 due to what he believed to be side effects from the Prolixin decanoate injection that he received 8 days prior to that. The patient remains guarded. He has been back and forth about whether he wants to live with his parents after his discharge or not. Today he is back to saying that he does want to live with his parents after discharge and he is agreeable to his father getting conservatorship or petitioning for one at least Plan: continue Prolixin 7.5 mg every morning Discontinue propranolol as the patient refuses to take it Continue Klonopin 1 mg in the morning with the Prolixin.
[2017-10-26 12:28] VITALS: BP 119/48
[2017-10-26 16:17] VITALS: BP 135/70
--- NOTE | 2017-10-26 16:44 | SOCIAL WORKER PROG NOTE PSYCH ---
Social Work Progress Note Progress Note This technical writer and editor met with patient. He presented as irritated/agitated and argumentative. He asked if this technical writer and editor had submitted the referral to [facility]. This technical writer and editor reminded him that he had informed yesterday afternoon that he no longer wanted a referral to their program. Patient responded, "so you still didn't pursue it?" Patient and this technical writer and editor completed the referral packet for [facility] and requested that it is faxed to their programs. Patient stated that he no longer wanted a family meeting with his parents and plans to go to a group home. Patient appeared to go back and forth regarding the group home, first stating that he wanted to go and then appearing upset that we would "just let me do that." Patient insisted on calling the [facility] to inquire about the referral process stating that they would provide him with a bed off the street. We called together ([phone]) and were informed that he would need to call 211 to schedule a CAN assessment first. Patient stated that ultimately, he would call for a CAN assessment. Patient expressed anger about his parents petitioning for conservatorship. Patient appeared very disorganized during this meeting. He also informed this technical writer and editor that he would like to meet with Mikael Valadez, an acknowledged that he had stated yesterday that he did not want a meeting with his manager of case (Michelle Valadez).
--- NOTE | 2017-10-26 19:25 | SOCIAL WORKER PROG NOTE PSYCH ---
Social Work Progress Note Progress Note RYDER CLEMONS [id number] 1980 RYDER CLEMONS [id number] Pended Authorization # Client Authorization # Type of Request [id number] CONCURRENT Date of Admission/ Start of Services Requested From Submission Date 10/20/2017 10/26/2017 10/26/2017
[2017-10-26 20:16] VITALS: BP 118/61
[2017-10-27 07:44] VITALS: BP 95/56
--- NOTE | 2017-10-27 07:53 | CP SOUTH PROGRESS NOTE PSYCH ---
Psych (Inpt) Progress Note Progress Note Treatment team (FRANCIE, RN, OTR/L, and psychiatrist) discussed the patient's progress, current treatment plan, and aftercare plan were discussed and the treatment team meeting this morning. Mental status examination: Dominik was very argumentative and rude today which is not unusual for him. He reported that he had a difficult time with restlessness last night and the plumbing and heating contractor psychiatrist was called around 2:30 in the morning and Cogentin was prescribed. The patient claims that it was not helpful. He seems to be convinced that the only thing that is going to help his restlessness/akathisia are benzodiazepines. He was alert and oriented to time, place, and person. He did not show any evidence of parkinsonian tremors and no evidence of dystonia . He continues to to deny hallucinations, denies feeling paranoid, denies feeling depressed. He denied feeling hopeless or worthless denied wishing or thinking of suicide his affect was very irritable. He was guarded but coherent, there were no specific delusions during the interview but it seems that he has like a paranoid attitude in general with extreme suspiciousness, guardedness, adversarial tone, irritability and argumentativeness. Assessment: A 37-year-old Single White Male who was admitted to Inpatient psychiaty on 2017 due to what he believed to be side effects from the Prolixin decanoate injection that he received 8 days prior to that. The patient remains guarded. He reported today that he is no longer interested in continuing fluphenazine. We discussed 3 alternatives. After it I explained the benefits and the side effects of all 3 of all alternatives, he opted to go with Trilafon (perphenazine) Plan: After long discussion with the patient after he came back later on increased to twice to discuss medications again he agreed to the following: Change perphenazine to 12 mg every morning Change propranolol to 30 mg twice daily morning and afternoon and Increase Klonopin to 1 mg in the morning and 2 mg at bedtime Increase Benadryl to 75 mg at bedtime PRN's of gabapentin 900 mg as needed
--- NOTE | 2017-10-27 09:35 | SOCIAL WORKER PROG NOTE PSYCH ---
Social Work Progress Note Progress Note 10/27/17 - in AM (around 9:30-10am) Faxed to [facility] - referral form and clinical. Confirmation received for both and SHEKHAR 's (in chart).
[2017-10-27 12:12] VITALS: BP 111/60
--- NOTE | 2017-10-27 13:28 | SOCIAL WORKER PROG NOTE PSYCH ---
See Addendum Social Work Progress Note Progress Note This blurb writer met with patient. He described his mood as "alright" with some improvement. Patient attributed improvement with mood as due to the "prolixin pills." Patient denied SI/HI/AH/VH. He was informed that [facility] would be faxing the crisis and respite referral. Patient inquired about the [facility] and was informed that this blurb writer will be contacting his [facility] is ready to be picked up. Patient stated that he understood. He denied SI/HI/AH/ VH. Patient stated that he would like to meet with Mikael Valadez, geriatric case manager from [facility]. This blurb writer left a vm for Mikael Valadez ([phone]) informing him of patient' s interest in a meeting. A call back number was provided.
--- NOTE | 2017-10-27 15:09 | SOCIAL WORKER PROG NOTE PSYCH ---
Social Work Progress Note Progress Note This handbook writer left for Jesika alexander [place] ([phone], ext. [phone]) at 3:15pm requesting contiued authorization for inpatient stay. A call back number was provided.
[2017-10-27 16:31] VITALS: BP 106/50
[2017-10-27 19:46] VITALS: BP 106/67
[2017-10-28 08:04] VITALS: BP 123/57
--- NOTE | 2017-10-28 12:05 | CP SOUTH PROGRESS NOTE PSYCH ---
Psych (Inpt) Progress Note Progress Note Include the following elements, when applicable: Involvement in the active treatment of the patient with behavioral observations of the patient and the patient's response to the treatment. Review of the ongoing treatment process in the context of the treatment plan. Indication of how multi-disciplinary staff members are carrying out the treatment plan. Plans for future interventions and recommendations for revision of the treatment plan. Liaison with other physicians/providers. Progress Note: Pt notes that he is "not great." Upset that he does not understand what his parents want for him to come back home, "I'm tired of it." Plans to try for respite and then finding an apt using SSD money. Denies SI or HI. Feels trilafon better than proloxin. Current Medications Sig/Fran Start time Last Medication Dose Route Stop Time Status Admin Acetaminophen 650 MG Q4P PRN 06 1100 AC 10/27 PO 0133 Al Hydroxide/Mg 30 ML Q4 HRS NEEDED PRN 10/20 1100 AC Hydroxide PO Clonazepam 1 MG 0800 10/28 0800 AC 10/28 PO 11/04 0759 0822 Clonazepam 2 MG AT BEDTIME 10/27 2100 AC / PO 11/03 2058 212 Diphenhydramine HCl 75 MG AT BEDTIME /08 2100 AC 10/27 PO 2123 Gabapentin 900 MG Q4 HRS NEEDED PRN 10/27 1100 AC PO Magnesium Hydroxide 30 ML AT BEDTIME PRN 10/20 1100 AC PO Nicotine 4 MG Q2P PRN 10/22 1900 AC 10/28 PO 0824 Perphenazine 12 MG 0800 10/28 0800 AC 10/28 PO 0821 Propranolol HCl 30 MG BID 10/27 2100 DC PO Propranolol HCl 30 MG 0800,1400 10/27 1400 AC 10/28 PO 0821 Vital Signs Date Time Temp Pulse Resp B/P B/P Pulse O2 O2 Flow FiO2 Mean Ox Delivery Rate 10/28 820 58 123/57 / 0804 96.9 58 123/57 / 1946 98.2 83 106/67 06/08 1631 72 106/50 06/ 1338 96.8 67 18 111/60 06/08 1212 67 111/60 MSE General appearance: good hygiene and grooming; Attitude: cooperative; Eye contact: appropriate; Movement: no psychomotor agitation or slowing; Speech: nl fluency, nl rate/rhythm, nl volume, nl prosody; Mood: "fine" Affect: very irritable, flat, appropriate, constricted, non-labile, congruent; Thought process: linear and goal-directed; Thought content: denied SI or HI, no paranoid ideation; Perception: denied hallucinations- auditory, visual, does not appear to be responding to internal stimuli; I/J: limited A/P: Pt with psychosis now more adherent to treatment but hx of medication noncompliance when not supervised. -Continue current medication regimen -Encourage integration into the milieu
[2017-10-28 12:12] VITALS: BP 122/57
[2017-10-28 15:47] VITALS: BP 101/56
[2017-10-28 20:30] VITALS: BP 113/75
[2017-10-29 07:36] VITALS: BP 100/66
[2017-10-29 12:10] VITALS: BP 104/56
--- NOTE | 2017-10-29 14:59 | CP SOUTH PROGRESS NOTE PSYCH ---
Psych (Inpt) Progress Note Progress Note Include the following elements, when applicable: Involvement in the active treatment of the patient with behavioral observations of the patient and the patient's response to the treatment. Review of the ongoing treatment process in the context of the treatment plan. Indication of how multi-disciplinary staff members are carrying out the treatment plan. Plans for future interventions and recommendations for revision of the treatment plan. Liaison with other physicians/providers. Progress Note: Pt declined to be seen privately and was seen in group room. Denies SI or HI. Notes no side effects. Denies psychotic sx. Current Medications Sig/Fran Start time Last Medication Dose Route Stop Time Status Admin Acetaminophen 650 MG Q4P PRN 10/20 1100 AC 10/27 PO 0133 Al Hydroxide/Mg 30 ML Q4 HRS NEEDED PRN 10/20 1100 AC Hydroxide PO Clonazepam 1 MG 0800 10/28 0800 AC 10/29 PO 11/04 0759 0739 Clonazepam 2 MG AT BEDTIME 10/27 2100 AC 10/28 PO 11/03 Diphenhydramine HCl 75 MG AT BEDTIME 08 2100 AC 10/28 PO 2306 Gabapentin 900 MG Q4 HRS NEEDED PRN 10/27 1100 AC PO Magnesium Hydroxide 30 ML AT BEDTIME PRN 10/20 1100 AC PO Nicotine 4 MG Q2P PRN 10/22 1900 AC 10/29 PO 1438 Perphenazine 12 MG 0800 09 0800 AC 10/29 PO 0739 Propranolol HCl 30 MG 0800,1400 06/08 1400 AC 10/29 PO 1437 Vital Signs Date Time Temp Pulse Resp B/P B/P Pulse O2 O2 Flow FiO2 Mean Ox Delivery Rate 10/29 1437 80 104/60 10/29 1210 68 104/56 10/29 0739 60 100/66 10/29 0736 96.2 60 100/66 10/28 2030 96.3 73 113/75 10/28 1547 69 101/56 MSE General appearance: good hygiene and grooming; Attitude: cooperative; Eye contact: appropriate; Movement: no psychomotor agitation or slowing; Speech: nl fluency, nl rate/rhythm, nl volume, nl prosody; Mood: "alright" Affect: very irritable, flat, appropriate, constricted, non-labile, congruent; Thought process: linear and goal-directed; Thought content: denied SI or HI, no paranoid ideation; Perception: denied hallucinations- auditory, visual, does not appear to be responding to internal stimuli; I/J: limited A/P: Pt with psychosis now more adherent to treatment but hx of medication noncompliance when not supervised. -Continue current medication regimen -Encourage integration into the milieu
[2017-10-29 15:43] VITALS: BP 109/58
[2017-10-29 19:37] VITALS: BP 118/61
[2017-10-30 07:27] VITALS: BP 112/58
--- NOTE | 2017-10-30 10:29 | CP SOUTH PROGRESS NOTE PSYCH ---
Psych (In) Progress Note Progress Note Treatment team (FRANCIE, RN, OTR/L, and psychiatrist) discussed the patient's progress, current treatment plan, and aftercare plan were discussed and the treatment team meeting this morning. Mental status examination: Dominik was less irritable today. He was alert and oriented to time, place, and person. He reported that he has been sleeping better since Monday. He did not show any evidence of parkinsonian tremors and no evidence of dystonia . Pt. denied hallucinations, denied feeling paranoid, and denied feeling depressed. Pt. denied feeling hopeless or worthless, and he denied wishing or thinking of suicide. He was guarded but coherent, there were no specific delusions during the interview. He has an excessively suspicious/paranoid attitude in general with extreme suspiciousness, guardedness. However, today he was less adversarial in his tone, and less argumentative. Assessment: A 37-year-old Single White Male who was admitted to Inpatient Psych on 10/20/2017 due to what he believed to be side effects from the Prolixin decanoate injection that he received 8 days prior to that. Since his admission the patient's medication was changed from Prolixin to perphenazine (trilafon) and so far has been denying any major side effects with that. There has been no significant change in the patient's mental state. However today he was a little bit less argumentative less irritable and less adversarial. Plan: perphenazine 12 mg every morning propranolol 30 mg twice daily morning and afternoon and Klonopin 1 mg in the morning and 2 mg at bedtime Benadryl 75 mg at bedtime PRN's of gabapentin 900 mg as needed PRN's of gabapentin 900 mg as needed
[2017-10-30 12:28] VITALS: BP 111/65
--- NOTE | 2017-10-30 15:32 | SOCIAL WORKER PROG NOTE PSYCH ---
Social Work Progress Note Progress Note The services requested require additional review. You will be contacted regarding the status of this request if further information is needed. An authorization decision will be made within the required timeframes and details of that decision may be found under the member's authorization history. Member Name Member ID Member Subscriber Name Subscriber ID RYDER CLEMONS [id number] 1980 RYDER CLEMONS [id number] Pended Authorization # Client Authorization # Type of Request [id number] CONCURRENT Date of Admission/ Start of Services Requested From Submission Date 10/20/2017 10/30/2017 10/30/2017 Level of Service Type of Service Level of Care Type of Care INPATIENT/HLOC Mental [facility] Inpatient [facility]patient [facility] - Inpatient Hospital Reason Code P76 Provider Name & Address Provider ID Provider Alternate ID NPI # for Authorization ROBERT GALDAMEZ [id number] [address] [place] [id number]
[2017-10-30 15:58] VITALS: BP 121/69
--- NOTE | 2017-10-30 18:18 | SOCIAL WORKER PROG NOTE PSYCH ---
See Addendum Social Work Progress Note Progress Note This medical writer met with patient. He described his mood as "ok" and denied SI/HI/AH /VH. Patient stated that he felt the medications have been helpful as he is experiencing decrease akathesia. He was agreeable to a family meeting, to include Juan Valadez in the meeting. 1pm: This medical writer spoke with patient's parents by phone to schedule the family meeting and in response to their vm (in which they inquired about a family meeting). His parents also stated that they have submitted the documents in interest of filing for conservatorship. Family meeting has been scheduled for tomorrow, 10/31/17, at 1:30pm. A vm was left for Juan Valadez with [facility] ) inviting him to this meeting as well. This medical writer spoke with Fina at [facility] informing her of the family meeting. She was also informed that Michelle Valadez was invited. Fina stated that patient has an appointment with Michelle Charles on 11/03/17 for medication management, previously scheduled.
--- NOTE | 2017-10-30 18:20 | SOCIAL WORKER PROG NOTE PSYCH ---
Social Work Progress Note Progress Note 2:08pm This information writer left for Jesika at [place] [phone], ext. [phone], requesting a call back to schedule a live concurrent review. 4pm This information writer called Jesika back to leave a with clinical as the 2:08pm call had not yet been returned. A call back number was provided.
[2017-10-30 20:02] VITALS: BP 125/54
[2017-10-31 08:15] VITALS: BP 103/73
[2017-10-31 12:36] VITALS: BP 118/72
--- NOTE | 2017-10-31 14:40 | CP SOUTH PROGRESS NOTE PSYCH ---
Psych (In) Progress Note Progress Note Treatment team (FRANCIE, RN, OTR/L, and psychiatrist) discussed the patient's progress, current treatment plan, and aftercare plan were discussed and the treatment team meeting this morning. Mental Status examination: less irritable, alert and oriented to time, place, and person; sleeping better, still restless did not show any evidence of parkinsonian tremors and no evidence of dystonia, denied hallucinations, denied feeling paranoid, and denied feeling depressed, denied feeling hopeless or worthless, and he denied wishing or thinking of suicide, guarded but coherent, there were no specific delusions during the interview, suspicious/paranoid attitude in general with extreme suspiciousness, guardedness, less adversarial in his tone, and less argumentative. Assessment: A 37-year-old Single White Male who was admitted to Inpatient Psych on 10/20/2017 due to what he believed to be side effects from the Prolixin decanoate injection that he received 8 days prior to that. Plan: D/C perphenazine due to ongoing akathisia Start Olanzapine 5 mg at bedtime Continue propranolol 30 mg twice daily morning and afternoon and Klonopin 1 mg in the morning and 2 mg at bedtime Change Benadryl 75 mg to PRN PRN's of gabapentin 900 mg as needed ote:
[2017-10-31 16:40] VITALS: BP 122/67
--- NOTE | 2017-10-31 18:27 | SOCIAL WORKER PROG NOTE PSYCH ---
Social Work Progress Note Progress Note This administrative underwriter spoke with Eleanor at [facility] for a phone screening. Eleanor stated that the patient would not be accepted as she felt he needed a higher level of care. This administrative underwriter spoke parul Ardon at [facility]. She stated that she was unavailable at this time and would call later today for a screening. 1:30pm Dr. Veliz, this administrative underwriter met with the patient and his parents for a family meeting. 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 Patient identified a main/general goal as living independently (which he would consider successful), however, did not want to project into the future. Dr. Veliz addressed medications, as well as questions and concerns, by the patient and his parents. Dr. Veliz informed the family and the patient of Anil Enciso, all of whom were interested. Patient was agreeable to a referral to [facility] and signed an SHEKHAR. Patient approached this administrative underwriter multiple times this afternoon inquiring about [facility] and whether I thought he would be accepted. He appeared eager to have a phone screening.
[2017-10-31 19:31] VITALS: BP 117/85
[2017-11-01 08:30] VITALS: BP 113/55
--- NOTE | 2017-11-01 09:14 | CP SOUTH PROGRESS NOTE PSYCH ---
Psych (In) Progress Note Progress Note Treatment team (FRANCIE, RN, OTR/L, and psychiatrist) discussed the patient's progress, current treatment plan, and aftercare plan. Mental Status examination: The patient was less restless today reported that he tolerated the Zyprexa last night very well. He reported that he slept okay. He denied restless legs and was less irritable, patient was alert and oriented to time, place, and person; did not show any evidence of parkinsonian tremors and no evidence of dystonia, patient denied hallucinations, denied feeling paranoid, Patient denied feeling depressed, denied feeling hopeless or worthless, and he denied wishing or thinking of suicide, guarded but coherent, there were no specific delusions during the interview, patient is a bit obsessive today about showed much less suspiciousness and guardedness, He was polite and calm today. Assessment: A 37-year-old Single White Male who was admitted to Inpatient Psych on 10/20/2017 due to what he believed to be side effects from the Prolixin decanoate injection that he received 8 days prior to that. The patient started the Zyprexa and seems to be having much less side effects he seems to be calmer, less argumentative, polite, and seems to be motivated to pursue [facility] if he is accepted Plan: Continue olanzapine 5 mg at bedtime Continue propranolol 30 mg twice daily morning and afternoon and Klonopin 1 mg in the morning and 1 mg at bedtime Benadryl 75 mg PRN QHS PRN's of gabapentin 900 mg Q4 hours as needed PO 11/07 2058 Diphenhydramine HCl 75 MG AT BEDTIME NEED.. 10/31 1445 AC PO Gabapentin 900 MG Q4 HRS NEEDED PRN 10/27 1100 AC PO Magnesium Hydroxide 30 ML AT BEDTIME PRN 10/20 1100 AC Nicotine 4 MG Q2P PRN 10/22 1900 AC
[2017-11-01 12:04] VITALS: BP 129/73
--- NOTE | 2017-11-01 15:23 | SOCIAL WORKER PROG NOTE PSYCH ---
Social Work Progress Note Progress Note 3:20pm This telegraphic typewriter operator chief left vm for Jesika at [place] [phone], ext. [phone], requesting continued authorization for inpatient stay.
[2017-11-01 15:57] VITALS: BP 93/55
--- NOTE | 2017-11-01 18:06 | SOCIAL WORKER PROG NOTE PSYCH ---
Social Work Progress Note Progress Note This publications writer faxed clinical to [facility] [employer] [facility] at 11:23 am today, Patient was served documents related to the conservatorship hearing by katelyn acevedo today. They were placed in his chart, at his request. Patient reviewed the documents. This publications writer met with patient prior to his [facility] phone screening. He stated that he was feeling anxious, but hopeful that he would be accepted. Patient presented with less agitation today, more cooperative and calmer. 2pm This publications writer provided support as patient spoke with Dr. Gonzalez at the [facility] phone screening. Dr. Gonzalez and this publications writer spoke following the screening. As discussed with Dr. Veliz, Dr. Gonzalez was informed that while there is reports by parents in his records of threatening, patient has not demonstrated this on the unit. Dr. Gonzalez requested to speak with the patient's parents, to which patient was agreeable. He signed a [facility] SHEKHAR which was faxed back to [facility]. Dr. Gonzalez stated that they are "leaning towards yes" for acceptance, however, would like to speak with the patient's parents first. This publications writer and patient discussed the phone screening and his reactions to it. He expressed concern that he would not be accepted after Dr. Gonzalez speaks with his parents and worries that they will be dishonest. However, he expressed feeling hopeful overall and felt that the screening went well.
[2017-11-01 19:34] VITALS: BP 117/65
--- NOTE | 2017-11-02 02:53 | CP SOUTH PROGRESS NOTE PSYCH ---
Psych (In) Progress Note Progress Note Treatment team (FRANCIE, RN, OTR/L, and psychiatrist) discussed the patient's progress, current treatment plan, and aftercare plan. Mental Status Examination: alert and oriented to time, place, and person, coherent less restless, tolerated Zyprexa, slept well, denied restless legs less irritable, no Parkinsonian tremors and no evidence of dystonia, patient denied hallucinations, denied feeling paranoid, denied feeling depressed , denied feeling hopeless or worthless, denied wishing or thinking of suicide less guarded no specific delusions, less obsessive , polite and calm Assessment: A 37-year-old Single White Male who was admitted to Inpatient Psych on 10/20/2017 due to what he believed to be side effects from the Prolixin decanoate injection that he received 8 days prior to that. The patient started the Zyprexa and seems to be having much less side effects he seems to be calmer, less argumentative, polite Plan Update: Continue olanzapine 5 mg at bedtime Continue propranolol 30 mg twice daily morning and afternoon and Klonopin 1 mg in the morning and 1 mg at bedtime Benadryl 75 mg PRN QHS PRN's of gabapentin 900 mg Q4 hours as needed
[2017-11-02 07:55] VITALS: BP 110/68
[2017-11-02 11:51] VITALS: BP 116/60
[2017-11-02 15:51] VITALS: BP 133/66
--- NOTE | 2017-11-02 18:11 | SOCIAL WORKER PROG NOTE PSYCH ---
Social Work Progress Note Progress Note This handbook writer received call from Allison at [facility] stating that the patient has been accepted and may start their program next week. She stated that the cost for 30 days will be $4000 and that the patient and/or his parents may contact her to discuss further. This handbook writer met with patient. He described his mood as "good" and denied SI/HI/ AH/VH. He reported decreased akethesia and felt that this was due to the Zyprexa. Patient was informed of the call from Allison/[facility] and was agreeable to this handbook writer contacting his parents with the information. He stated that he preferred for them to speak with Allison rather than the patient calling. Patient expressed concerns about the financial component and how this might be a barrier to participating in their program. Patient stated that he would be agreeable to discussing other options and would also be interested in finding a room to rent on Jay[facility]'s list if [facility] does not work out. Patient appears much calmer, more engaged in conversation and did not demonstrate any irritability or argumentativeness during this meeting. This handbook writer spoke with patient's mother, Sigrid Roque, by phone ([phone]) and informed of the information provided by Allison at [facility]. She was interested in speaking with Allison and was provided with the contact number.
[2017-11-02 20:08] VITALS: BP 120/65
--- NOTE | 2017-11-03 08:22 | CP SOUTH PROGRESS NOTE PSYCH ---
Psych (Inpt) Progress Note Progress Note Vital Signs Date Time Temp Pulse B/P B/P Pulse O2 FiO2 11/03 1202 96 138/97 11/03 901 97.1 50 127/73 11/03 2007 98.1 86 120/65 Treatment team (FRANCIE, RN, OTR/L & Activities Therapist, Psychiatrist) discussed the Pt.'s progress, treatment plan, and aftercare plans. Mental Status Examination: The patient signed in voluntarily. He seemed to be in better spirits today and less irritable and this argumentative. He was alert, oriented, coherent less restless, slept well, denied restless legs, no Parkinsonian tremors and no evidence of dystonia, patient denied hallucinations, denied feeling paranoid, denied feeling depressed , denied feeling hopeless or worthless, denied wishing or thinking of suicide, less guarded , no specific delusions, less obsessive Assessment: A 37-year-old Single White Male who was admitted to Inpatient Psych on 10/20/2017 due to what he believed to be side effects from the Prolixin decanoate injection that he received 8 days prior to that. The patient started the Zyprexa and seems to be having much less side effects he seems to be calmer, less argumentative, polite Duration the patient was accepted to [facility] and may be discharged as soon as Monday depending on bed availability Plan Update: Increase olanzapine to 7.5 mg at bedtime Continue propranolol 30 mg twice daily morning and afternoon and Klonopin 1 mg in the morning and 1 mg at bedtime Benadryl 75 mg PRN QHS PRN's of gabapentin 900 mg Q4 hours as needed
[2017-11-03 09:02] VITALS: BP 127/73
--- NOTE | 2017-11-03 09:17 | SOCIAL WORKER PROG NOTE PSYCH ---
See Addendum Social Work Progress Note Progress Note This journalists and other writers left vm for Jesika at [facility] ([phone], ext. [phone]) last night to follow up on the review. This journalists and other writers received a vm from Jesika requesting additional clinical (med changes, information about [facility], and patient's baseline). A vm was left at 9:10am this morning with this requested information. Patient signed in voluntarily at 9am today. This journalists and other writers received a vm from Allison at [facility] stating that she spoke with the patient's parents and they are agreeable to [facility] and the cost. This journalists and other writers spoke with patient's parents as well. They were informed that the patient would discharge to [facility] sometime next week and that [facility] would, per Allison, provide transportation. Patient's parents were also informed that the patient signed in voluntarilly this morning, at 9am. Mrs. Roque requested an evaluation letter from the psychiatrist for [facility]. This request was relayed to Dr. Veliz. This journalists and other writers met with patient and informed of the [facility] acceptance and that Allison spoke with his parents. Patient was agreeable to going to [facility] next week and was informed that [facility] would provide transportation from the hospital. Per Jude, patient is requested to make a list of the belongings that he would like his parents to pack. He agreed to do so and will speak with his parents this weekend. He was also given the message from his mother to contact his ex-girlfriend if he is interested in coordinating a visit with her this weekend on [facility]. Patient stated that he has some questions about the program at [facility]. A message was left for Allison regarding this request to speak with someone. 10:40am This journalists and other writers left a vm for Allison regarding patients decision to be admitted to [facility] next week. Per Dr. Veliz, patient will discharge on Monday. Allison returned the call and stated that the patient will be picked up from the hospital on 11/07/17 at 1pm and that medications should be called in to [facility] pharmacy at [phone].
[2017-11-03 12:02] VITALS: BP 138/97
[2017-11-03 16:09] VITALS: BP 111/81
[2017-11-03 19:56] VITALS: BP 129/67
[2017-11-04 08:37] VITALS: BP 133/69
[2017-11-04 12:11] VITALS: BP 127/73
--- NOTE | 2017-11-04 15:21 | CP SOUTH PROGRESS NOTE PSYCH ---
Psych (Inpt) Progress Note Progress Note Include the following elements, when applicable: Involvement in the active treatment of the patient with behavioral observations of the patient and the patient's response to the treatment. Review of the ongoing treatment process in the context of the treatment plan. Indication of how multi-disciplinary staff members are carrying out the treatment plan. Plans for future interventions and recommendations for revision of the treatment plan. Liaison with other physicians/providers. Progress Note: Chart reviewed. Progress discussed with nursing staff. Interviewed patient this morning. Patient reports feeling "fine", denies any current complaints or needs. Denies SI/HI/AVH. Looks fwd to d/c this week. Vitals and labs reviewed. Findings are: vitals wnl Mental status exam: Well groomed CM, seen in hospital room however frequently pacing unit. No abn movmenets. Speech wnl. Mood "fine", affect mildly constricted, non-labile. TP was log/alesha. Content without SI/HI. Denies percept disturbance. Cog grossly intact. i/j fair. Assessment and plan: Continues to improve. Per notes plan for d/c this week. Continue current management as per primary team.
[2017-11-04 15:56] VITALS: BP 146/80
[2017-11-04 19:57] VITALS: BP 126/78
[2017-11-05 07:53] VITALS: BP 123/71
--- NOTE | 2017-11-05 11:18 | CP SOUTH PROGRESS NOTE PSYCH ---
Psych (Inpt) Progress Note Progress Note Include the following elements, when applicable: Involvement in the active treatment of the patient with behavioral observations of the patient and the patient's response to the treatment. Review of the ongoing treatment process in the context of the treatment plan. Indication of how multi-disciplinary staff members are carrying out the treatment plan. Plans for future interventions and recommendations for revision of the treatment plan. Liaison with other physicians/providers. Progress Note: Chart reviewed. Progress discussed with nursing staff. Interviewed patient this morning. Patient reports feeling "ok", denies any current complaints or needs. Denies SI/HI/AVH. Looks fwd to d/c this week. Vitals and labs reviewed. Findings are: vitals wnl Mental status exam: Well groomed CM, seen in hospital room. Comfortable appering with no abn movmenets. Speech wnl. Mood "ok", affect mildly constricted, non- labile. TP was log/alesha. Content without SI/HI. Denies percept disturbance. Cog grossly intact. i/j fair. Assessment and plan: Continues to improve. Per notes plan for d/c this week. Continue current management as per primary team.
[2017-11-05 12:27] VITALS: BP 123/71
[2017-11-05 15:44] VITALS: BP 130/78
[2017-11-05 19:55] VITALS: BP 137/79
[2017-11-06 07:49] VITALS: BP 117/71
--- NOTE | 2017-11-06 07:56 | CP SOUTH PROGRESS NOTE PSYCH ---
Psych (Inpt) Progress Note Progress Note Vital Signs Date Time Temp Pulse B/P B/P Pulse O2 FiO2 11/06 0749 96.0 98 117/71 11/05 1955 98.4 83 137/79 11/05 1544 84 130/78 11/05 1227 84 123/71 Mental Status Examination: The patient was alert, oriented, and coherent in better spirits today, he was not irritable, not argumentative, less restless, slept well, denied restless legs, no Parkinsonian tremors and no evidence of dystonia, denied hallucinations, denied feeling paranoid, denied feeling depressed, denied feeling hopeless or worthless, denied wishing or thinking of suicide, less guarded , no specific delusions, less obsessive Assessment: A 37-year-old Single White Male who was admitted to Inpatient Psych on 10/20/2017 due to what he believed to be side effects from the Prolixin decanoate injection that he received 8 days prior to that. The patient started the Zyprexa and seems to be having much less side effects he seems to be calmer, less argumentative, polite He is slated for discharge tomorrow at 1 PM Plan Update: Continue same medications and will most likely discharge the patient tomorrow 1 PM to [facility]
[2017-11-06] MEDS ORDERED: KLONOPIN1 M1 PO (11:24)
[2017-11-06] MEDS ORDERED: GABAPENTIN300 M2 PO (11:24)
[2017-11-06] MEDS ORDERED: ZYPREXA7.5 M1 PO (11:24)
--- NOTE | 2017-11-06 11:47 | SOCIAL WORKER PROG NOTE PSYCH ---
See Addendum Social Work Progress Note Progress Note This teletypewriter installer met with patient. He described his mood as "it's alright" and stated that his weekend was "alright." Patient appeared irritated today, however, denied feeling so when this teletypewriter installer observed this with him. He stated that he would like to speak with someone at [facility] to find out what he needs to and can bring with him. He stated that he has not spoken with his parents about what belongings he would like them to pack yet. He stated that he visited with his ex-girlfriend this weekend and stated that it was "alright." Patient denied SI/HI/AH/VH. Patient commented that he is looking forward to discharging.
[2017-11-06 12:04] VITALS: BP 123/69
[2017-11-06 15:47] VITALS: BP 120/67
--- NOTE | 2017-11-06 15:51 | SOCIAL WORKER PROG NOTE PSYCH ---
Social Work Progress Note Progress Note The services requested require additional review. You will be contacted regarding the status of this request if further information is needed. An authorization decision will be made within the required timeframes and details of that decision may be found under the member's authorization history. Member Name Member ID Member Subscriber Name Subscriber ID RYDER CLEMONS [id number] RDYER CLEMONS [id number] Pended Authorization # Client Authorization # Type of Request [id number] CONCURRENT Date of Admission/ Start of Services Requested From Submission Date 10/20/2017 11/06/2017 11/06/2017 Level of Service Type of Service Level of Care Type of Care INPATIENT/HLOC Mental Health Inpatient Inpatient Hospital - Inpatient Hospital Reason Code P76 Provider Name & Address Provider ID Provider Alternate ID NPI # for Authorization ROBERT GALDAMEZ [id number] [address] [place] [id number]
[2017-11-06 19:25] VITALS: BP 139/70
--- NOTE | 2017-11-07 07:26 | Patient Discharge Instructions ---
Psych Discharge Inst General Discharge Information Reason for Admission: disorganized behavior at home/anxiety/agitation Psy Discharge Primary Diag+ Schizophrenia Psy Discharge Secondary Diag+ Cannabis Use Disorder Summary Tests/Major Procedures Lab Cholesterol 195 MG/DL 10/13/17 1145 Cholesterol/HDL Ratio 3 % 10/13/17 1145 HDL Cholesterol 62 mg/dL H 10/13/17 1145 Hemoglobin A1c 5.6 % 10/13/17 1145 LDL Cholesterol, Calc 79 mg/dL 10/13/17 1145 Triglycerides 271 mg/dL H 10/13/17 1145 Studies Pending at DC: None Patient Instructions Contact Information Your Psychiatrist on [facility] was Keren OJEDA,Javi * If you are experiencing an emergency related to this hospitalization, please call [phone] to contact the treating psychiatrist or the psychiatrist-on- call. * To Request a copy of your medical records, please contact the Medical Records Department at [phone]. * To request results of studies pending at the time of discharge, please call [phone]. * Continue your Medications until directed to stop by your Healthcare provider. General Medication Information Please continue to take your new medications and your continued home medications , unless otherwise indicated on your discharge medication list, or unless directed by your MD or METAL PUNCH PRESS OPERATOR to stop them. Special Instructions Diet Regular Activity Normal - Tobacco Use Treatment Offered Post DC Medications Offered: Refused Tob Medication Tx Post DC Tobacco Treatment Plan: Refused Tobacco Tx Pgm - EtOH/Drug Use D/O Treatment Offered Post DC Medications Offered: Med Not Indicated for D/O Post DC EtOH/SubAbuse TX Plan: Other SubAbuse/Dual Pgm Metabolic Screening Patient on a neuroleptic(s) . Enter below results for Hemoglobin A1C, and lipid panel if obtained during the last 365 days. BMI: 22.000 Blood Pressure: 139/70 Laboratory Results From [facility] (If applicable): Lab Cholesterol 195 MG/DL 10/13/17 1145 Cholesterol/HDL Ratio 3 % 10/13/17 1145 HDL Cholesterol 62 mg/dL H 10/13/17 1145 Hemoglobin A1c 5.6 % 10/13/17 1145 LDL Cholesterol, Calc 79 mg/dL 10/13/17 1145 Triglycerides 271 mg/dL H 10/13/17 1145 Advance Directives Does the Patient have Medical Advance Directives No/Refused further info Does Pt have Psychiatric Advance Directives? No/Refused further info Does Patient have a Designated Surrogate Decision Maker: No Information About Psychiatric Advance Directives Provided? Refused Discharge Plan Post Hospital Treatment Plan: [facility], [place], [place]
[2017-11-07 07:33] VITALS: BP 107/73
[2017-11-07 12:11] VITALS: BP 145/69
--- NOTE | 2017-11-07 17:43 | SOCIAL WORKER PROG NOTE PSYCH ---
Social Work Progress Note Progress Note This bond writer returned call from Fina at [facility] ([phone]) inquiring about patient and progress/treatment plans. She was informed that the patient will discharge today to [facility] in [place]. Fina requested the discharge paperwork (patient health summary) upon discharge. She was informed that this bond writer spoke parul Valadez in case management yesterday regarding today's discharge. This bond writer met with patient. He described his mood as "fine" and denied SI/HI/ AH/VH. He appeared eager to discharge and stated that he was looking forward to going to [facility]. Patient identified a safety to "go to the hospital", speak with staff at [facility]. He was also informed that he would be provided with crisis numbers and warm lines upon discharge, which he accepted. Patient stated that he was unable to speak with anyone from [facility] regarding belongings that he may bring with them. This bond writer spoke with Allison who offered her direct line to him ([phone]). Allison informed this bond writer that he would not be allowed to bring his car. This information, along with Allison's number, was given to the patient. He verbally acknowledged understanding that he cannot bring his car. He stated that he created a list for his parents of items he would like to bring and, while accepted her number, stated that he did not need to speak with her at this time. He was agreeable to his discharge paperwork being sent to [facility]. He was also informed that he would be provided with the information for the smoking cessation group at . Patient stated that he did not need any additional appointments scheduled or referrals made. He stated that he spoke with his parents about the discharge plans and did not need for this bond writer to be in contact with them. This bond writer spoke with Allison at [facility]. She anticipates that a national van truck driver will pickler helper the patient from today between 1 and 1:30pm to transport to [facility]. This bond writer informed Allison, per the patient, that his parents will meet him at with his belongings. This bond writer also informed Allison that the patient has information regarding conservatorship which includes upcoming hearing information. This bond writer provided Allison with the following information: 12/12 contact information: Dr. Veliz, 2. Contact information for pending studies: Dr. Veliz, 3. Plan for follow up care: IOP/PHP at [facility] (she was also informed of the IOP at ) 4. Primary physician at [facility]: Dr. Li This bond writer left for Allison when the patient health summary and W10 were faxed. She was also informed that the patient had previously been engaged in [facility] outpatient services which included a pillowcase cleaner. Faxed Referral(s) 1 Referred To: [facility] Transition of Care Documents sent: Health [facility]: [phone] Faxed by: Anoop ATKINSONW Date faxed: 11/07/17 Time Faxed: [phone] Faxed Referral(s) 2 Referred To: [facility] Transition of Care Documents sent: Health Summary, W10 Faxed to: ailyn Antunez Fax #: [phone] Faxed by: Anoop Lundy DRUG SAFETY SCIENTIST Date faxed: 11/07/17 Time Faxed: [phone]
--- NOTE | 2017-11-08 11:37 | SOCIAL WORKER PROG NOTE PSYCH ---
Social Work Progress Note Progress Note [facility] - #[phone] (Jesika at [phone] was out of the office) Phoned in discharge clinical to [facility] SKINNER#[phone] (10/20/17-11/06/18)
--- NOTE | 2017-11-09 08:27 | CP SOUTH PROGRESS NOTE PSYCH ---
Psych (Inpt) Progress Note Progress Note Mental Status Examination: The patient was alert, oriented, and coherent He was in better spirits/not irritable, not argumentative, less restless, slept well, denied restless legs, no Parkinsonian tremors and no evidence of dystonia, denied hallucinations, denied feeling paranoid, denied feeling depressed, denied feeling hopeless or worthless, denied wishing or thinking of suicide, less guarded , no specific delusions, less obsessive Assessment: A 37-year-old Single White Male who was admitted to Inpatient Psych on 10/20/2017 due to what he believed to be side effects from the Prolixin decanoate injection that he received 8 days prior to that. The patient's level of improvement in my opinion was significant enough and the patient may safely continue his treatment on a partial hospital program/ intensive outpatient basis Plan Update: discharge to [facility]
== END 2017-11-07 14:02 | DRG 885 ==
LOC: ERH 20:37 → ERHI 10-20 10:22 → CP SOUTH 10-20 10:22 → ENRESERV 10-20 23:59 → CP SOUTH 10-22 21:41
PROVIDERS: Emergency Medicine
DX: F20.9 Schizophrenia, unspecified (principal); F12.90 Cannabis use, unspecified, uncomplicated
CPT/HCPCS: 80307; 96374; 96375; G0480; J1200; J1630